=== PATIENT | female | born 1960 | race Caucasian/White ===

== ENCOUNTER 2018-11-05 11:03 | Emergency (ER) | payer OTHER | END 2018-11-05 11:32 | disposition home or self-care (01) | LOC: JERFT 11:03 ==

== ENCOUNTER 2023-07-17 09:27 | Inpatient (IN) | payer OTHER ==
[2023-07-17] MEDS ORDERED: FAMOTIDINE 20 MG/50 ML IVPB 20 MG/50 ML MG IVPB ONE (10:47)
[2023-07-17] MEDS: SODIUM CHLORIDE 1,000 ML IV STA (11:04)
[2023-07-17] MEDS: FAMOTIDINE 20 MG/50 ML IVPB 20 MG/50 ML MG IVPB ONE (11:04)
[2023-07-17 11:12] LABS: BASO % 0.7 % (0-2.0); EOS % 0.6 % (0-4.5); HEMATOCRIT 40.7 % (32.4-45.2); HEMOGLOBIN 13.8 GM/dL (10.7-15.3); LYMPH % 13.1 % (8-40); MCH 27.9 pg (25.7-33.7); MCHC 33.8 g/dl (32.0-36.0); MEAN CELL VOLUME 82.6 fl (80-96); MEAN PLT VOLUME 8.3 fl (7.5-11.1); MONO % 8.3 % (3.8-10.2); NEUT % 77.3 % (42.8-82.8); PLATELET COUNT 314 10^3/uL (134-434); RBC 4.92 M/mm3 (3.60-5.2); RDW 12.6 % (11.6-15.6); WHITE BLOOD COUNT 9.2 K/mm3 (4.0-10.0)
[2023-07-17 11:24] LABS: INR 1.21 (0.83-1.09)
[2023-07-17 11:26] LABS: ACTIVATED PTT 30.1 SECONDS (25.2-36.5)
[2023-07-17 11:37] LABS: CHLORIDE 97 mmol/L (98-107); SODIUM 140 mmol/L (136-145)
[2023-07-17 11:39] LABS: CALCIUM 9.3 mg/dL (8.5-10.1)
[2023-07-17 11:40] LABS: BLOOD UREA NITROGEN 8.8 mg/dL (7-18); CO2 35 mmol/L (21-32); GLUCOSE,RANDOM 112 mg/dL (74-106)
[2023-07-17 11:43] LABS: CREATININE 0.6 mg/dL (0.55-1.3); SGOT/AST 41 U/L (15-37); SGPT/ALT 50 U/L (13-61)
[2023-07-17 11:44] LABS: TOT PROT 6.6 g/dl (6.4-8.2)
[2023-07-17 11:45] LABS: BILIRUBIN,TOTAL 1.3 mg/dL (0.2-1)
[2023-07-17 11:46] LABS: ALK PHOS 128 U/L (45-117)
[2023-07-17 11:47] LABS: ANION GAP 8 mmol/L (4-13); POTASSIUM 2.8 mmol/L (3.5-5.1)
[2023-07-17 12:42] LABS: EPI CELLS >36 /uL (0-25.1); HYALINE CASTS 7 /uL (0-3.1); URINE APPEARANCE CLOUDY; URINE BILIRUBIN 2+ (NEGATIVE); URINE COLOR ORANGE; URINE GLUCOSE (UA) NEGATIVE (NEGATIVE); URINE KETONE 1+ (NEGATIVE); URINE LEUK ESTERASE 1+ (NEGATIVE); URINE NITRITE POSITIVE (NEGATIVE); URINE PROTEIN 1+ (NEGATIVE); URINE WBC 76 /uL (0-25.8)
[2023-07-17] MEDS ORDERED: KCL 10 MEQ IVPB 10 MEQ/100 ML INFUS.BAG IVPB ONE ×2 (12:46→14:21)
[2023-07-17] MEDS: KCL 10 MEQ IVPB 10 MEQ/100 ML INFUS.BAG IVPB SCH ×2 (12:57→19:13)
[2023-07-17 14:39] LABS: URINE BACTERIA 876.8 /uL (0-1359); URINE RBC 32.4 /uL (0-23.9)
[2023-07-17] MEDS ORDERED: ACETAMINOPHEN 1000 MG/100 ML BAG IVPB PRN (15:29)
[2023-07-17] MEDS: DEXTROSE 5%-0.45% SALINE 1,000 ML IV SCH (18:25)
[2023-07-18] MEDS: ONDANSETRON 4 MG/2 ML VIAL IVPUSH PRN (00:47)
[2023-07-18 06:57] LABS: BASO % 1.2 % (0-2.0); EOS % 1.4 % (0-4.5); HEMATOCRIT 34.8 % (32.4-45.2); HEMOGLOBIN 11.9 GM/dL (10.7-15.3); LYMPH % 18.5 % (8-40); MCH 28.2 pg (25.7-33.7); MCHC 34.2 g/dl (32.0-36.0); MEAN CELL VOLUME 82.6 fl (80-96); MEAN PLT VOLUME 8.3 fl (7.5-11.1); MONO % 10.1 % (3.8-10.2); NEUT % 68.8 % (42.8-82.8); PLATELET COUNT 244 10^3/uL (134-434); RBC 4.21 M/mm3 (3.60-5.2); RDW 12.8 % (11.6-15.6); WHITE BLOOD COUNT 7.3 K/mm3 (4.0-10.0)
[2023-07-18 07:06] LABS: CHLORIDE 98 mmol/L (98-107); SODIUM 138 mmol/L (136-145)
[2023-07-18 07:17] LABS: SGPT/ALT 42 U/L (13-61)
[2023-07-18 07:18] LABS: CREATININE 0.5 mg/dL (0.55-1.3); TOT PROT 5.5 g/dl (6.4-8.2)
[2023-07-18 07:19] LABS: ALK PHOS 101 U/L (45-117); BILIRUBIN,TOTAL 1.2 mg/dL (0.2-1)
[2023-07-18 07:20] LABS: BLOOD UREA NITROGEN 7.8 mg/dL (7-18); GLUCOSE,RANDOM 118 mg/dL (74-106)
[2023-07-18 07:22] LABS: ALBUMIN 2.6 g/dl (3.4-5.0); CALCIUM 8.1 mg/dL (8.5-10.1); CO2 34 mmol/L (21-32); SGOT/AST 33 U/L (15-37)
[2023-07-18 07:32] LABS: ANION GAP 7 mmol/L (4-13); POTASSIUM 2.9 mmol/L (3.5-5.1)
[2023-07-18] MEDS: POTASSIUM CHLORIDE ORAL LIQUID 20 MEQ/15 ML PO ONE (12:01)
[2023-07-18] MEDS: KCL 10 MEQ IVPB 10 MEQ/100 ML INFUS.BAG IVPB SCH (12:01)
[2023-07-18 13:30] LABS: BF WBC & OTHER NUCLEATED CELLS 269 /mm3; BODY FLUID MACROPHAGES 30 %; BODY FLUID MESOTHELIAL 6 %
[2023-07-18] MEDS: POTASSIUM CHLORIDE ORAL LIQUID 20 MEQ/15 ML PO SCH (21:14)
[2023-07-19 07:13] LABS: BASO % 0.6 % (0-2.0); EOS % 0.6 % (0-4.5); HEMATOCRIT 36.8 % (32.4-45.2); HEMOGLOBIN 12.3 GM/dL (10.7-15.3); LYMPH % 12.5 % (8-40); MCH 27.7 pg (25.7-33.7); MCHC 33.3 g/dl (32.0-36.0); MEAN CELL VOLUME 83.1 fl (80-96); MEAN PLT VOLUME 9.1 fl (7.5-11.1); NEUT % 76.3 % (42.8-82.8); PLATELET COUNT 230 10^3/uL (134-434); RBC 4.43 M/mm3 (3.60-5.2); RDW 12.9 % (11.6-15.6); WHITE BLOOD COUNT 9.3 K/mm3 (4.0-10.0)
[2023-07-19 07:21] LABS: POTASSIUM 3.8 mmol/L (3.5-5.1)
[2023-07-19 07:35] LABS: ALBUMIN 2.4 g/dl (3.4-5.0); BLOOD UREA NITROGEN 5.2 mg/dL (7-18); CALCIUM 8.2 mg/dL (8.5-10.1)
[2023-07-19 07:38] LABS: CREATININE 0.5 mg/dL (0.55-1.3)
[2023-07-19 07:39] LABS: TOT PROT 5.3 g/dl (6.4-8.2)
[2023-07-19 07:41] LABS: BILIRUBIN,TOTAL 1.1 mg/dL (0.2-1)
[2023-07-19] MEDS: ENOXAPARIN NA (PORCINE) 40 MG/0.4 ML DISP.SYRIN SQ SCH (11:48)
[2023-07-19] MEDS: POTASSIUM CHLORIDE TABS 20 MEQ TABLET.ER (FP) PO ONE (22:37)
[2023-07-20 07:37] LABS: BASO % 0.5 % (0-2.0); EOS % 1.7 % (0-4.5); HEMATOCRIT 37.7 % (32.4-45.2); HEMOGLOBIN 12.6 GM/dL (10.7-15.3); LYMPH % 19.5 % (8-40); MCH 27.8 pg (25.7-33.7); MCHC 33.5 g/dl (32.0-36.0); MEAN CELL VOLUME 83.2 fl (80-96); MEAN PLT VOLUME 9.1 fl (7.5-11.1); MONO % 9.9 % (3.8-10.2); NEUT % 68.4 % (42.8-82.8); PLATELET COUNT 252 10^3/uL (134-434); RBC 4.53 M/mm3 (3.60-5.2); RDW 12.8 % (11.6-15.6); WHITE BLOOD COUNT 8.7 K/mm3 (4.0-10.0)
[2023-07-20 08:02] LABS: BLOOD UREA NITROGEN 3.8 mg/dL (7-18); CALCIUM 8.2 mg/dL (8.5-10.1)
[2023-07-20 08:03] LABS: ALBUMIN 2.4 g/dl (3.4-5.0)
[2023-07-20 08:06] LABS: CREATININE 0.5 mg/dL (0.55-1.3)
[2023-07-20 08:14] LABS: TOT PROT 5.6 g/dl (6.4-8.2)
[2023-07-20 12:08] VITALS: BMI 26.6
[2023-07-20] MEDS ORDERED: ALPRAZolam 1 MG TABLET PO PRN (14:14)
[2023-07-21 13:08] VITALS: RESP 18
[2023-07-22] MEDS ORDERED: ONDANSETRON 4 MG/2 ML VIAL IVPUSH PRN (07:20)
[2023-07-22 10:37] LABS: BASO % 0.7 % (0-2.0); EOS % 1.1 % (0-4.5); HEMATOCRIT 38.1 % (32.4-45.2); HEMOGLOBIN 12.9 GM/dL (10.7-15.3); LYMPH % 13.7 % (8-40); MCH 28.2 pg (25.7-33.7); MCHC 33.8 g/dl (32.0-36.0); MEAN CELL VOLUME 83.5 fl (80-96); MEAN PLT VOLUME 8.9 fl (7.5-11.1); MONO % 8.2 % (3.8-10.2); NEUT % 76.3 % (42.8-82.8); PLATELET COUNT 267 10^3/uL (134-434); RBC 4.56 M/mm3 (3.60-5.2); RDW 13.2 % (11.6-15.6); WHITE BLOOD COUNT 8.8 K/mm3 (4.0-10.0)
[2023-07-22 11:04] LABS: POTASSIUM 3.8 mmol/L (3.5-5.1)
[2023-07-22 11:07] LABS: CALCIUM 8.6 mg/dL (8.5-10.1)
[2023-07-22 11:08] LABS: ALBUMIN 2.4 g/dl (3.4-5.0)
[2023-07-22 11:11] LABS: CREATININE 0.5 mg/dL (0.55-1.3)
[2023-07-22 11:12] LABS: TOT PROT 5.5 g/dl (6.4-8.2)
[2023-07-22 11:13] LABS: BILIRUBIN,TOTAL 0.8 mg/dL (0.2-1)
[2023-07-22] MEDS: PANTOPRAZOLE 40 MG TABLET PO SCH (11:34)
[2023-07-22] MEDS: ENOXAPARIN NA (PORCINE) 40 MG/0.4 ML DISP.SYRIN SQ SCH (11:34)
[2023-07-23 13:42] VITALS: BP 145/79; PULSE 88; TEMP 98.6
[2023-07-23 15:18] LABS: BODY FLUID ALBUMIN 2.6 g/dL (Not Estab.)
== END 2023-07-23 13:45 | disposition home or self-care (01) | DRG 948 ==
LOC: JER 09:27 → JERBED 11:09 → J4W 17:08 → J7W 07-21 18:07
PROVIDERS: ADMIT Internal Medicine; ATTEND Internal Medicine
PROC: 0W9G3ZX Drainage of Peritoneal Cavity, Percutaneous Approach, Diagnostic (ICD-10-PCS; principal; 2023-07-18)
DX: R18.8 Other ascites (principal); C50.919 Malignant neoplasm of unspecified site of unspecified female breast; R63.0 Anorexia
CPT/HCPCS: 0241U-QW; 36415; 71046-TC-FY; 74176-TC; 74177-TC; 76856-TC; 76942-TC; 80053; 81003; 82042; 82150; 82465; 82945; 83615; 83986; 84157; 84478; 85025; 85610; 85730; 86850; 86900; 86901; 87070; 87075; 87086; 87102; 87116; 87205; 87206; 87210; 88108; 88305-TC; 93005; 93010; 99285-25

== ENCOUNTER 2023-08-23 09:34 | Inpatient (IN) | payer OTHER ==
[2023-08-23] MEDS ORDERED: ONDANSETRON 4 MG/2 ML VIAL ONE (10:26)
[2023-08-23 10:34] LABS: BASO % 0.2 % (0-2.0); EOS % 0.6 % (0-4.5); HEMATOCRIT 37.8 % (32.4-45.2); HEMOGLOBIN 12.7 GM/dL (10.7-15.3); LYMPH % 3.9 % (8-40); MCH 27.1 pg (25.7-33.7); MCHC 33.6 g/dl (32.0-36.0); MEAN CELL VOLUME 80.6 fl (80-96); MONO % 6.5 % (3.8-10.2); NEUT % 88.8 % (42.8-82.8); PLATELET COUNT 413 10^3/uL (134-434); RBC 4.69 M/mm3 (3.60-5.2); WHITE BLOOD COUNT 11.9 K/mm3 (4.0-10.0)
[2023-08-23] MEDS: ONDANSETRON 4 MG/2 ML VIAL IVPUSH ONE (10:35)
[2023-08-23 10:53] LABS: POTASSIUM 3.7 mmol/L (3.5-5.1)
[2023-08-23 10:56] LABS: CALCIUM 9.6 mg/dL (8.5-10.1)
[2023-08-23 10:57] LABS: ALBUMIN 2.7 g/dl (3.4-5.0)
[2023-08-23 10:59] LABS: CREATININE 0.6 mg/dL (0.55-1.3)
[2023-08-23 11:01] LABS: TOT PROT 6.6 g/dl (6.4-8.2)
[2023-08-23 11:04] LABS: BILIRUBIN,TOTAL 0.9 mg/dL (0.2-1)
[2023-08-23] MEDS ORDERED: DEXAMETHASONE SOD PHOSPHATE 10 MG/1 ML VIAL ONE (12:34)
[2023-08-23] MEDS ORDERED: ACETAMINOPHEN INJECTION 100 ML IVPB ONE (12:35)
[2023-08-23] MEDS: DEXAMETHASONE SOD PHOSPHATE 10 MG/1 ML VIAL IVPUSH ONE (12:59)
[2023-08-23] MEDS: ACETAMINOPHEN 1000 MG/100 ML BAG IVPB ONE (12:59)
[2023-08-23 13:23] LABS: POTASSIUM 3.4 mmol/L (3.5-5.1)
[2023-08-23 13:24] LABS: CALCIUM 8.7 mg/dL (8.5-10.1)
[2023-08-23 13:25] LABS: BLOOD UREA NITROGEN 6.7 mg/dL (7-18)
[2023-08-23 13:28] LABS: CREATININE 0.5 mg/dL (0.55-1.3)
[2023-08-23] MEDS: REMDESIVIR 200 MG in SODIUM CHLORIDE 250 ML IVPB ONE (15:42)
[2023-08-23 16:35] LABS: URINE APPEARANCE CLEAR; URINE BILIRUBIN NEGATIVE (NEGATIVE); URINE COLOR YELLOW; URINE GLUCOSE (UA) NEGATIVE (NEGATIVE); URINE KETONE NEGATIVE (NEGATIVE); URINE LEUK ESTERASE NEGATIVE (NEGATIVE); URINE NITRITE NEGATIVE (NEGATIVE); URINE PROTEIN TRACE (NEGATIVE)
[2023-08-23] MEDS ORDERED: ONDANSETRON 4 MG/2 ML VIAL IVPUSH PRN (20:19)
[2023-08-23] MEDS ORDERED: ACETAMINOPHEN 1000 MG/100 ML BAG IVPB PRN (20:19)
[2023-08-23] MEDS: DEXTROSE 5%-0.45% SALINE 1,000 ML IV SCH (22:21)
[2023-08-24] MEDS: guaiFENesin/D-METHORPHAN HB 10 ML UNIT-DOSE CUPS PO ONE (01:05)
[2023-08-24 09:02] LABS: BASO % 0.4 % (0-2.0); EOS % 0.1 % (0-4.5); HEMATOCRIT 33.2 % (32.4-45.2); HEMOGLOBIN 11.3 GM/dL (10.7-15.3); LYMPH % 20.6 % (8-40); MCH 27.3 pg (25.7-33.7); MEAN CELL VOLUME 80.4 fl (80-96); MEAN PLT VOLUME 8.3 fl (7.5-11.1); MONO % 16.7 % (3.8-10.2); NEUT % 62.2 % (42.8-82.8); PLATELET COUNT 361 10^3/uL (134-434); RBC 4.13 M/mm3 (3.60-5.2); RDW 14.2 % (11.6-15.6); WHITE BLOOD COUNT 6.9 K/mm3 (4.0-10.0)
[2023-08-24 09:19] LABS: CHLORIDE 97 mmol/L (98-107); SODIUM 140 mmol/L (136-145)
[2023-08-24 09:24] LABS: ALBUMIN 2.3 g/dl (3.4-5.0); BLOOD UREA NITROGEN 9.7 mg/dL (7-18); CALCIUM 8.5 mg/dL (8.5-10.1); CO2 34 mmol/L (21-32); GLUCOSE,RANDOM 102 mg/dL (74-106)
[2023-08-24 09:27] LABS: CREATININE 0.5 mg/dL (0.55-1.3); SGOT/AST 21 U/L (15-37); SGPT/ALT 21 U/L (13-61)
[2023-08-24 09:28] LABS: BILIRUBIN,TOTAL 0.7 mg/dL (0.2-1); TOT PROT 5.6 g/dl (6.4-8.2)
[2023-08-24 09:34] LABS: ALK PHOS 119 U/L (45-117)
[2023-08-24 09:44] LABS: ANION GAP 9 mmol/L (4-13); POTASSIUM 2.9 mmol/L (3.5-5.1)
[2023-08-24] MEDS: ENOXAPARIN NA (PORCINE) 40 MG/0.4 ML DISP.SYRIN SQ SCH (10:26)
[2023-08-24] MEDS: PANTOPRAZOLE 40 MG TABLET PO SCH (10:26)
[2023-08-24] MEDS: KCL 10 MEQ IVPB 10 MEQ/100 ML INFUS.BAG IVPB SCH (11:32)
[2023-08-24] MEDS: POTASSIUM CHLORIDE ORAL LIQUID 20 MEQ/15 ML PO ONE (11:35)
[2023-08-24 15:17] VITALS: BMI 24.7
[2023-08-24 21:22] LABS: POTASSIUM 3.4 mmol/L (3.5-5.1)
[2023-08-24 21:24] LABS: BLOOD UREA NITROGEN 7.8 mg/dL (7-18); CALCIUM 8.5 mg/dL (8.5-10.1)
[2023-08-24 21:28] LABS: CREATININE 0.6 mg/dL (0.55-1.3)
[2023-08-24] MEDS: ALBUTEROL SO4 2.5/IPRATROPIUM 0.5 INH SOL 3 ML VIAL.NEB. NEB ONE (21:48)
[2023-08-25 08:30] LABS: BASO % 0.6 % (0-2.0); EOS % 0.7 % (0-4.5); HEMATOCRIT 33.6 % (32.4-45.2); HEMOGLOBIN 11.1 GM/dL (10.7-15.3); LYMPH % 30.8 % (8-40); MCH 27.1 pg (25.7-33.7); MEAN CELL VOLUME 81.9 fl (80-96); MEAN PLT VOLUME 8.3 fl (7.5-11.1); MONO % 15.9 % (3.8-10.2); PLATELET COUNT 325 10^3/uL (134-434); RBC 4.11 M/mm3 (3.60-5.2); RDW 13.9 % (11.6-15.6); WHITE BLOOD COUNT 5.1 K/mm3 (4.0-10.0)
[2023-08-25 08:53] LABS: POTASSIUM 3.2 mmol/L (3.5-5.1)
[2023-08-25 08:54] LABS: ALBUMIN 2.2 g/dl (3.4-5.0); BLOOD UREA NITROGEN 6.6 mg/dL (7-18)
[2023-08-25 08:57] LABS: CREATININE 0.5 mg/dL (0.55-1.3)
[2023-08-25 08:59] LABS: BILIRUBIN,TOTAL 0.6 mg/dL (0.2-1)
[2023-08-25] MEDS ORDERED: ALBUTEROL SO4 0.083% IH SOL 2.5 MG/3 ML VIAL.NEB. NEB PRN (11:52)
[2023-08-25] MEDS: methylPREDNISolone NA SUCC 40 MG/1 ML VIAL IVPUSH SCH (12:56)
[2023-08-25] MEDS ORDERED: ALBUTEROL SO4 0.083% IH SOL 2.5 MG/3 ML VIAL.NEB. NEB SCH (14:00)
[2023-08-26] MEDS: REMDESIVIR 100 MG in SODIUM CHLORIDE 230 ML IVPB SCH (17:11)
[2023-08-26] MEDS: methylPREDNISolone NA SUCC 40 MG/1 ML VIAL IVPUSH SCH (17:12)
[2023-08-27 09:59] LABS: BASO % 0.2 % (0-2.0); HEMATOCRIT 36.1 % (32.4-45.2); HEMOGLOBIN 12.2 GM/dL (10.7-15.3); LYMPH % 10.8 % (8-40); MCH 27.3 pg (25.7-33.7); MCHC 33.7 g/dl (32.0-36.0); MEAN PLT VOLUME 8.6 fl (7.5-11.1); PLATELET COUNT 468 10^3/uL (134-434); RBC 4.46 M/mm3 (3.60-5.2); RDW 14.2 % (11.6-15.6); WHITE BLOOD COUNT 13.9 K/mm3 (4.0-10.0)
[2023-08-27 10:24] LABS: POTASSIUM 3.7 mmol/L (3.5-5.1)
[2023-08-27 10:31] LABS: BLOOD UREA NITROGEN 7.2 mg/dL (7-18); CREATININE 0.6 mg/dL (0.55-1.3)
[2023-08-27 10:33] LABS: BILIRUBIN,TOTAL 0.6 mg/dL (0.2-1); TOT PROT 6.3 g/dl (6.4-8.2)
[2023-08-27 10:34] LABS: CALCIUM 8.8 mg/dL (8.5-10.1)
[2023-08-27] MEDS: guaiFENesin/CODEINE 10 ML UNIT-DOSE CUPS PO PRN (10:41)
[2023-08-27 10:58] LABS: ALBUMIN 2.6 g/dl (3.4-5.0)
[2023-08-27] MEDS: REMDESIVIR 100 MG in SODIUM CHLORIDE 250 ML IVPB SCH (15:32)
[2023-08-28 08:40] LABS: BASO % 0.6 % (0-2.0); HEMATOCRIT 34.5 % (32.4-45.2); HEMOGLOBIN 11.5 GM/dL (10.7-15.3); LYMPH % 15.1 % (8-40); MCHC 33.2 g/dl (32.0-36.0); MEAN CELL VOLUME 81.1 fl (80-96); MEAN PLT VOLUME 8.1 fl (7.5-11.1); MONO % 10.4 % (3.8-10.2); NEUT % 73.9 % (42.8-82.8); PLATELET COUNT 375 10^3/uL (134-434); RBC 4.26 M/mm3 (3.60-5.2); RDW 13.9 % (11.6-15.6); WHITE BLOOD COUNT 10.8 K/mm3 (4.0-10.0)
[2023-08-28 08:59] LABS: POTASSIUM 3.2 mmol/L (3.5-5.1)
[2023-08-28 09:05] LABS: CALCIUM 8.8 mg/dL (8.5-10.1)
[2023-08-28 09:07] LABS: ALBUMIN 2.4 g/dl (3.4-5.0); BLOOD UREA NITROGEN 8.3 mg/dL (7-18)
[2023-08-28 09:08] LABS: CREATININE 0.4 mg/dL (0.55-1.3)
[2023-08-28 09:11] LABS: BILIRUBIN,TOTAL 0.4 mg/dL (0.2-1); TOT PROT 5.7 g/dl (6.4-8.2)
[2023-08-29 14:08] VITALS: RESP 18
[2023-08-29] MEDS: PANTOPRAZOLE 40 MG TABLET PO ONE (21:08)
[2023-08-29] MEDS: POLYETHYLENE GLYCOL (HEALTHYLAX) 3350 17 GM PACKET PO PRN (22:31)
[2023-08-30 14:04] VITALS: BP 147/80; PULSE 88; TEMP 99
== END 2023-08-30 14:06 | disposition home or self-care (01) | DRG 597 ==
LOC: JER 09:34 → JERBED 10:26 → J8W 17:01 → OBSVTOIN 20:17
PROVIDERS: ADMIT Internal Medicine; ATTEND Internal Medicine
PROC: XW033E5 Introduction of Remdesivir Anti-infective into Peripheral Vein, Percutaneous Approach, New Technology Group 5 (ICD-10-PCS; principal; 2023-08-23)
DX: C50.919 Malignant neoplasm of unspecified site of unspecified female breast (principal); U07.1 COVID-19; C79.89 Secondary malignant neoplasm of other specified sites; R18.0 Malignant ascites; R09.02 Hypoxemia
CPT/HCPCS: 0241U-QW; 36415; 71046-TC-FY; 71250-TC; 74177-TC; 80048; 80053; 81003; 83690; 84484; 85025; 87086; 87186; 93005; 93010; 93970-TC; 94640; 99285-25; G0378; J0131; J0248; J1100; Q9967

== ENCOUNTER 2023-09-19 06:00 | Day surgery (SDC) | payer OTHER ==
[2023-09-13 15:36] VITALS: BMI 24.7
[2023-09-19 09:52] LABS: BASO % 1.2 % (0-2.0); EOS % 1.5 % (0-4.5); HEMATOCRIT 37.7 % (32.4-45.2); HEMOGLOBIN 12.5 GM/dL (10.7-15.3); LYMPH % 21.8 % (8-40); MCH 27.5 pg (25.7-33.7); MCHC 33.2 g/dl (32.0-36.0); MEAN CELL VOLUME 82.8 fl (80-96); MEAN PLT VOLUME 7.8 fl (7.5-11.1); MONO % 10.3 % (3.8-10.2); NEUT % 65.2 % (42.8-82.8); PLATELET COUNT 369 10^3/uL (134-434); RBC 4.55 M/mm3 (3.60-5.2); RDW 14.7 % (11.6-15.6); WHITE BLOOD COUNT 6.9 K/mm3 (4.0-10.0)
[2023-09-19 09:56] LABS: INR 1.14 (0.83-1.09); PROTHROMBIN TIME (PATIENT) 12.8 SEC (9.7-13.0)
[2023-09-19] MEDS: SODIUM CHLORIDE 500 ML IV SCH (11:45)
[2023-09-19] MEDS ORDERED: FENTANYL CITRATE/PF 50 MCG/ML VIAL ONE ×2 (11:50→12:04)
[2023-09-19] MEDS ORDERED: MIDAZOLAM HCL 2 MG/2 ML SINGLE DOSE VIAL ONE (11:50)
[2023-09-19] MEDS ORDERED: ONDANSETRON 4 MG/2 ML VIAL ONE (11:51)
[2023-09-19] MEDS: ONDANSETRON 4 MG/2 ML VIAL IVPUSH ONE (11:55)
[2023-09-19] MEDS: FENTANYL CITRATE/PF 50 MCG/ML VIAL IVPUSH ONE ×2 (11:56→12:05)
[2023-09-19] MEDS: MIDAZOLAM HCL 2 MG/2 ML SINGLE DOSE VIAL IVPUSH ONE ×2 (11:56→12:05)
[2023-09-19 13:37] VITALS: BP 118/72; PULSE 82; RESP 18; TEMP 97.7
== END 2023-09-19 14:17 | disposition home or self-care (01) ==
LOC: JRADIR 06:00
PROVIDERS: ATTEND Internal Medicine Hematology & Oncology
PROC: 0JH63WZ Insertion of Totally Implantable Vascular Access Device into Chest Subcutaneous Tissue and Fascia, Percutaneous Approach (ICD-10-PCS; principal; 2023-09-19)
PROC: 02HV33Z Insertion of Infusion Device into Superior Vena Cava, Percutaneous Approach (ICD-10-PCS; 2023-09-19)
PROC: B518ZZA Fluoroscopy of Superior Vena Cava, Guidance (ICD-10-PCS; 2023-09-19)
DX: C50.919 Malignant neoplasm of unspecified site of unspecified female breast (principal)
CPT/HCPCS: 36561; C1788; 36415; 85025; 85610

== ENCOUNTER 2023-09-23 09:54 | Day surgery (SDC) | payer OTHER ==
[2023-09-23] MEDS: PORTA CATH FLUSH 10 ML IVPUSH PRN (11:00)
[2023-09-23] MEDS: DEXAMETHASONE SODIUM PHOSPHATE 10 MG, DIPHENHYDRAMINE 25 MG in SODIUM CHLORIDE 100 ML IVPB ONE (11:12)
[2023-09-23] MEDS: ONDANSETRON 4 MG/2 ML VIAL IVPB ONE (11:13)
[2023-09-23] MEDS: FAMOTIDINE 20 MG/50 ML IVPB 20 MG/50 ML MG IVPB ONE (11:48)
[2023-09-23] MEDS: PACLITAXEL 150 MG in SODIUM CHLORIDE 250 ML IVPB ONE (12:53)
[2023-09-23 17:00] VITALS: BP 133/85; PULSE 116; RESP 18; TEMP 98.2
== END 2023-09-23 15:00 | disposition home or self-care (01) ==
LOC: JONCCHEMO 09:54 → J7W 09:56 → JONCCHEMO 15:00
PROVIDERS: ATTEND Internal Medicine Hematology & Oncology
DX: Z51.11 Encounter for antineoplastic chemotherapy (principal); C50.412 Malignant neoplasm of upper-outer quadrant of left female breast; Z17.0 Estrogen receptor positive status [ER+]
CPT/HCPCS: 96367; 96413; 96415

== ENCOUNTER 2023-09-30 09:35 | Day surgery (SDC) | payer OTHER ==
[2023-09-30 10:12] LABS: BASO % 0.6 % (0-2.0); EOS % 0.8 % (0-4.5); HEMATOCRIT 40.4 % (32.4-45.2); HEMOGLOBIN 13.3 GM/dL (10.7-15.3); LYMPH % 20.8 % (8-40); MCH 26.9 pg (25.7-33.7); MCHC 32.8 g/dl (32.0-36.0); MEAN PLT VOLUME 8.2 fl (7.5-11.1); MONO % 3.8 % (3.8-10.2); PLATELET COUNT 342 10^3/uL (134-434); RBC 4.93 M/mm3 (3.60-5.2); RDW 14.2 % (11.6-15.6); WHITE BLOOD COUNT 6.9 K/mm3 (4.0-10.0)
[2023-09-30 10:33] LABS: POTASSIUM 3.1 mmol/L (3.5-5.1)
[2023-09-30 10:35] LABS: MAGNESIUM 2.3 mg/dL (1.8-2.4)
[2023-09-30 10:36] LABS: ALBUMIN 3.3 g/dl (3.4-5.0); BLOOD UREA NITROGEN 10.3 mg/dL (7-18); CALCIUM 9.9 mg/dL (8.5-10.1)
[2023-09-30 10:39] LABS: CREATININE 0.7 mg/dL (0.55-1.3)
[2023-09-30 10:41] LABS: BILIRUBIN,TOTAL 1.1 mg/dL (0.2-1); TOT PROT 6.9 g/dl (6.4-8.2)
[2023-09-30] MEDS: KCL 10 MEQ IVPB 10 MEQ/100 ML INFUS.BAG IVPB SCH (11:16)
[2023-09-30] MEDS: FAMOTIDINE 20 MG/50 ML IVPB 20 MG/50 ML MG IVPB ONE (11:17)
[2023-09-30] MEDS: DEXAMETHASONE SODIUM PHOSPHATE 10 MG, ONDANSETRON INJECTION 8 MG, DIPHENHYDRAMINE 25 MG... IVPB ONE (12:08)
[2023-09-30] MEDS: POTASSIUM CHLORIDE TABS 20 MEQ TABLET.ER (FP) PO SCH (12:22)
[2023-09-30] MEDS: PACLITAXEL 150 MG in SODIUM CHLORIDE 250 ML IVPB ONE (12:30)
[2023-09-30 17:43] VITALS: BP 141/93; PULSE 110; RESP 20; TEMP 98.2
[2023-09-30] MEDS ORDERED: PORTA CATH FLUSH 10 ML IVPUSH PRN (17:43)
[2023-10-01] MEDS ORDERED: POTASSIUM CHLORIDE TABS 20 MEQ TABLET.ER (FP) PO SCH (10:00)
== END 2023-09-30 14:35 | disposition home or self-care (01) ==
LOC: JONCCHEMO 09:35 → J7W 09:36 → JONCCHEMO 14:35
PROVIDERS: ATTEND Internal Medicine Hematology & Oncology
DX: Z51.11 Encounter for antineoplastic chemotherapy (principal); C50.412 Malignant neoplasm of upper-outer quadrant of left female breast; Z17.0 Estrogen receptor positive status [ER+]
CPT/HCPCS: 36415; 80053; 82728; 83540; 83735; 85025; 96367; 96413

== ENCOUNTER 2023-10-07 09:48 | Day surgery (SDC) | payer OTHER ==
[2023-10-07 10:10] LABS: BASO % 1.3 % (0-2.0); EOS % 1.1 % (0-4.5); HEMOGLOBIN 12.7 GM/dL (10.7-15.3); LYMPH % 42.2 % (8-40); MCH 27.6 pg (25.7-33.7); MCHC 34.2 g/dl (32.0-36.0); MEAN CELL VOLUME 80.5 fl (80-96); MONO % 7.3 % (3.8-10.2); NEUT % 48.1 % (42.8-82.8); PLATELET COUNT 332 10^3/uL (134-434); RDW 14.4 % (11.6-15.6)
[2023-10-07 10:29] LABS: CHLORIDE 99 mmol/L (98-107); SODIUM 138 mmol/L (136-145)
[2023-10-07 10:32] LABS: BLOOD UREA NITROGEN 8.3 mg/dL (7-18); CALCIUM 9.4 mg/dL (8.5-10.1); CO2 32 mmol/L (21-32); GLUCOSE,RANDOM 114 mg/dL (74-106); MAGNESIUM 2.3 mg/dL (1.8-2.4)
[2023-10-07 10:33] LABS: ALBUMIN 3.2 g/dl (3.4-5.0)
[2023-10-07 10:35] LABS: SGPT/ALT 46 U/L (13-61)
[2023-10-07 10:36] LABS: SGOT/AST 36 U/L (15-37)
[2023-10-07 10:37] LABS: BILIRUBIN,TOTAL 1.6 mg/dL (0.2-1); CREATININE 0.7 mg/dL (0.55-1.3); TOT PROT 6.8 g/dl (6.4-8.2)
[2023-10-07 10:39] LABS: ALK PHOS 127 U/L (45-117)
[2023-10-07 11:00] LABS: ANION GAP 7 mmol/L (4-13); POTASSIUM 2.9 mmol/L (3.5-5.1)
[2023-10-07] MEDS: DEXAMETHASONE SODIUM PHOSPHATE 10 MG, ONDANSETRON INJECTION 8 MG, DIPHENHYDRAMINE 25 MG... IVPB ONE (11:08)
[2023-10-07] MEDS: FAMOTIDINE/PF 20 MG in SODIUM CHLORIDE 50 ML IVPB ONE (11:39)
[2023-10-07] MEDS: PACLITAXEL 144 MG in SODIUM CHLORIDE 250 ML IVPB ONE (12:19)
[2023-10-07] MEDS: KCL 10 MEQ IVPB 10 MEQ/100 ML INFUS.BAG IVPB SCH (13:24)
[2023-10-07 14:59] VITALS: RESP 20; TEMP 98.2
[2023-10-07] MEDS: PORTA CATH FLUSH 10 ML IVPUSH PRN (15:35)
[2023-10-08 08:05] VITALS: BP 118/73; PULSE 75
== END 2023-10-07 15:45 | disposition home or self-care (01) ==
LOC: JONCCHEMO 09:48 → J7W 09:54 → JONCCHEMO 15:45
PROVIDERS: ATTEND Internal Medicine Hematology & Oncology
DX: Z51.11 Encounter for antineoplastic chemotherapy (principal); C50.412 Malignant neoplasm of upper-outer quadrant of left female breast; Z17.0 Estrogen receptor positive status [ER+]
CPT/HCPCS: 36415; 80053; 83735; 85025; 96366; 96367; 96413

== ENCOUNTER 2023-10-11 09:57 | Inpatient (IN) | payer OTHER ==
[2023-10-11] MEDS ORDERED: ACETAMINOPHEN INJECTION 100 ML IVPB ONE ×2 (11:05→12:37)
[2023-10-11] MEDS ORDERED: ONDANSETRON 4 MG/2 ML VIAL ONE ×2 (11:05→12:38)
[2023-10-11 11:11] LABS: HEMATOCRIT 35.3 % (32.4-45.2); HEMOGLOBIN 11.9 GM/dL (10.7-15.3); MCH 27.3 pg (25.7-33.7); MCHC 33.6 g/dl (32.0-36.0); MEAN CELL VOLUME 81.2 fl (80-96); MEAN PLT VOLUME 8.3 fl (7.5-11.1); PLATELET COUNT 313 10^3/uL (134-434); RBC 4.35 M/mm3 (3.60-5.2); RDW 14.2 % (11.6-15.6); WHITE BLOOD COUNT 2.9 K/mm3 (4.0-10.0)
[2023-10-11 11:19] LABS: INR 1.11 (0.83-1.09); PROTHROMBIN TIME (PATIENT) 12.5 SEC (9.7-13.0)
[2023-10-11] MEDS: SODIUM CHLORIDE 0.9% 500 ML INFUS.BAG IV ONE ×2 (11:19→12:24)
[2023-10-11] MEDS: ACETAMINOPHEN 1000 MG/100 ML BAG IVPB ONE (11:20)
[2023-10-11] MEDS: ONDANSETRON 4 MG/2 ML VIAL IVPUSH ONE ×2 (11:20→12:46)
[2023-10-11 11:22] LABS: ACTIVATED PTT 30.3 SECONDS (25.2-36.5)
[2023-10-11 11:32] LABS: POTASSIUM 3.7 mmol/L (3.5-5.1)
[2023-10-11 11:34] LABS: CALCIUM 9.5 mg/dL (8.5-10.1); MAGNESIUM 2.1 mg/dL (1.8-2.4)
[2023-10-11 11:35] LABS: ALBUMIN 3.1 g/dl (3.4-5.0)
[2023-10-11 11:37] LABS: CREATININE 0.6 mg/dL (0.55-1.3)
[2023-10-11 11:39] LABS: BILIRUBIN,TOTAL 1.7 mg/dL (0.2-1); TOT PROT 6.7 g/dl (6.4-8.2)
[2023-10-11] MEDS ORDERED: FAMOTIDINE 20 MG/50 ML IVPB 20 MG/50 ML MG IVPB ONE (12:37)
[2023-10-11 12:40] LABS: EPI CELLS 21 /uL (0-25.1); HYALINE CASTS 121 /uL (0-3.1); URINE APPEARANCE TURBID; URINE BACTERIA >9,000 /uL (0-1359); URINE BILIRUBIN 1+ (NEGATIVE); URINE COLOR DK YELLOW; URINE GLUCOSE (UA) NEGATIVE (NEGATIVE); URINE KETONE TRACE (NEGATIVE); URINE LEUK ESTERASE 2+ (NEGATIVE); URINE NITRITE POSITIVE (NEGATIVE); URINE PROTEIN 3+ (NEGATIVE); URINE WBC 29721 /uL (0-25.8)
[2023-10-11] MEDS: FAMOTIDINE 20 MG/50 ML IVPB 20 MG/50 ML MG IVPB ONE (12:46)
[2023-10-11 13:09] LABS: URINE RBC 547 /uL (0-23.9)
[2023-10-11 13:17] LABS: CHLORIDE 102 mmol/L (98-107); SODIUM 138 mmol/L (136-145)
[2023-10-11 13:18] LABS: CALCIUM 8.5 mg/dL (8.5-10.1); CO2 31 mmol/L (21-32); GLUCOSE,RANDOM 124 mg/dL (74-106); MAGNESIUM 1.9 mg/dL (1.8-2.4)
[2023-10-11 13:19] LABS: BLOOD UREA NITROGEN 7.8 mg/dL (7-18)
[2023-10-11 13:22] LABS: CREATININE 0.5 mg/dL (0.55-1.3)
[2023-10-11 13:26] LABS: ANION GAP 6 mmol/L (4-13); POTASSIUM 2.9 mmol/L (3.5-5.1)
[2023-10-11] MEDS ORDERED: KCL 10 MEQ IVPB 10 MEQ/100 ML INFUS.BAG IVPB ONE (13:48)
[2023-10-11] MEDS ORDERED: POTASSIUM CHLORIDE TABS 20 MEQ TABLET.ER (FP) PO ONE (13:48)
[2023-10-11] MEDS ORDERED: CEFTRIAXONE 1 GM/50 ML BAG ONE (13:48)
[2023-10-11] MEDS ORDERED: POTASSIUM CHLORIDE ORAL LIQUID 20 MEQ/15 ML ONE (13:50)
[2023-10-11] MEDS: CEFTRIAXONE 1 GM in DEXTROSE 5%-WATER - 100 ML IVPB ONE (14:06)
[2023-10-11] MEDS: POTASSIUM CHLORIDE ORAL LIQUID 20 MEQ/15 ML PO ONE (14:06)
[2023-10-11] MEDS: KCL 10 MEQ IVPB 10 MEQ/100 ML INFUS.BAG IVPB SCH ×2 (14:24→16:07)
[2023-10-11 15:06] LABS: PLATELET ESTIMATE ADEQUATE
[2023-10-11] MEDS: PANTOPRAZOLE 40 MG TABLET PO SCH (16:07)
[2023-10-11] MEDS: DEXTROSE 5%-0.45% SALINE 1,000 ML IV SCH (16:07)
[2023-10-11 16:28] VITALS: BMI 23.7
[2023-10-11] MEDS: ACETAMINOPHEN 1000 MG/100 ML BAG IVPB PRN (18:15)
[2023-10-11] MEDS: ONDANSETRON 4 MG/2 ML VIAL IVPUSH PRN (23:22)
[2023-10-12] MEDS: PIPERACILLIN/TAZOB 3.375 GM 3.375 GM in DEXTROSE 5%-WATER - 50 ML IVPB SCH (02:33)
[2023-10-12] MEDS: ENOXAPARIN NA (PORCINE) 40 MG/0.4 ML DISP.SYRIN SQ SCH (09:26)
[2023-10-12 09:56] LABS: EOS % 1.3 % (0-4.5); HEMATOCRIT 30.9 % (32.4-45.2); HEMOGLOBIN 10.6 GM/dL (10.7-15.3); LYMPH % 47.3 % (8-40); MCH 27.8 pg (25.7-33.7); MCHC 34.2 g/dl (32.0-36.0); MEAN CELL VOLUME 81.2 fl (80-96); MEAN PLT VOLUME 8.3 fl (7.5-11.1); MONO % 5.2 % (3.8-10.2); NEUT % 45.2 % (42.8-82.8); PLATELET COUNT 314 10^3/uL (134-434); RDW 14.5 % (11.6-15.6); WHITE BLOOD COUNT 3.1 K/mm3 (4.0-10.0)
[2023-10-12] MEDS ORDERED: CEFTRIAXONE 1 GM in DEXTROSE 5%-WATER - 50 ML IVPB SCH (10:00)
[2023-10-12 10:01] LABS: POTASSIUM 3.4 mmol/L (3.5-5.1)
[2023-10-12 10:12] LABS: CALCIUM 8.7 mg/dL (8.5-10.1)
[2023-10-12 10:13] LABS: ALBUMIN 2.7 g/dl (3.4-5.0); BLOOD UREA NITROGEN 6.1 mg/dL (7-18)
[2023-10-12 10:15] LABS: BILIRUBIN,TOTAL 1.2 mg/dL (0.2-1)
[2023-10-12 10:16] LABS: CREATININE 0.5 mg/dL (0.55-1.3)
[2023-10-12 10:17] LABS: TOT PROT 5.9 g/dl (6.4-8.2)
[2023-10-12] MEDS: POTASSIUM CHLORIDE ORAL LIQUID 20 MEQ/15 ML PO ONE (14:54)
[2023-10-13 09:33] LABS: BASO % 1.3 % (0-2.0); EOS % 2.4 % (0-4.5); HEMATOCRIT 27.5 % (32.4-45.2); HEMOGLOBIN 9.6 GM/dL (10.7-15.3); LYMPH % 37.6 % (8-40); MCH 28.2 pg (25.7-33.7); MEAN CELL VOLUME 80.5 fl (80-96); MONO % 6.9 % (3.8-10.2); NEUT % 51.8 % (42.8-82.8); PLATELET COUNT 261 10^3/uL (134-434); RBC 3.42 M/mm3 (3.60-5.2); RDW 14.7 % (11.6-15.6); WHITE BLOOD COUNT 2.9 K/mm3 (4.0-10.0)
[2023-10-13 09:50] LABS: CHLORIDE 104 mmol/L (98-107); SODIUM 139 mmol/L (136-145)
[2023-10-13 09:54] LABS: CALCIUM 8.2 mg/dL (8.5-10.1); CO2 28 mmol/L (21-32)
[2023-10-13 09:55] LABS: ALBUMIN 2.3 g/dl (3.4-5.0); BLOOD UREA NITROGEN 3.3 mg/dL (7-18); GLUCOSE,RANDOM 102 mg/dL (74-106)
[2023-10-13 09:58] LABS: CREATININE 0.4 mg/dL (0.55-1.3); SGOT/AST 13 U/L (15-37); SGPT/ALT 20 U/L (13-61)
[2023-10-13 09:59] LABS: BILIRUBIN,TOTAL 0.6 mg/dL (0.2-1); TOT PROT 5.1 g/dl (6.4-8.2)
[2023-10-13 10:00] LABS: ALK PHOS 88 U/L (45-117); ANION GAP 7 mmol/L (4-13); POTASSIUM 2.9 mmol/L (3.5-5.1)
[2023-10-13] MEDS: CEFTRIAXONE 1 GM in DEXTROSE 5%-WATER - 50 ML IVPB SCH (10:10)
[2023-10-13] MEDS: KCL 10 MEQ IVPB 10 MEQ/100 ML INFUS.BAG IVPB SCH (13:52)
[2023-10-13] MEDS: POTASSIUM CHLORIDE ORAL LIQUID 20 MEQ/15 ML PO ONE (15:45)
[2023-10-13 19:04] VITALS: RESP 18
[2023-10-14 07:50] LABS: BASO % 1.1 % (0-2.0); EOS % 1.7 % (0-4.5); HEMATOCRIT 31.4 % (32.4-45.2); HEMOGLOBIN 10.9 GM/dL (10.7-15.3); LYMPH % 43.7 % (8-40); MCHC 34.7 g/dl (32.0-36.0); MEAN CELL VOLUME 80.6 fl (80-96); MEAN PLT VOLUME 7.9 fl (7.5-11.1); MONO % 8.3 % (3.8-10.2); NEUT % 45.2 % (42.8-82.8); PLATELET COUNT 356 10^3/uL (134-434); RBC 3.89 M/mm3 (3.60-5.2); RDW 14.7 % (11.6-15.6); WHITE BLOOD COUNT 4.7 K/mm3 (4.0-10.0)
[2023-10-14 08:05] LABS: POTASSIUM 3.4 mmol/L (3.5-5.1)
[2023-10-14 08:10] LABS: CALCIUM 8.8 mg/dL (8.5-10.1)
[2023-10-14 08:11] LABS: ALBUMIN 2.7 g/dl (3.4-5.0); BLOOD UREA NITROGEN 3.2 mg/dL (7-18); MAGNESIUM 1.8 mg/dL (1.8-2.4)
[2023-10-14 08:13] LABS: CREATININE 0.4 mg/dL (0.55-1.3); PHOSPHOROUS 3.5 mg/dL (2.5-4.9)
[2023-10-14 08:15] LABS: BILIRUBIN,TOTAL 0.6 mg/dL (0.2-1); TOT PROT 5.8 g/dl (6.4-8.2)
[2023-10-14] MEDS: POTASSIUM CHLORIDE ORAL LIQUID 20 MEQ/15 ML PO ONE (13:35)
[2023-10-14] MEDS: D5-1/2NS+20 MEQ KCL - 20 MEQ/1,000 ML INFUS.BAG IV SCH (16:50)
[2023-10-15 08:37] LABS: EOS % 1.2 % (0-4.5); HEMATOCRIT 28.5 % (32.4-45.2); HEMOGLOBIN 9.6 GM/dL (10.7-15.3); LYMPH % 28.1 % (8-40); MCH 27.5 pg (25.7-33.7); MCHC 33.6 g/dl (32.0-36.0); MEAN CELL VOLUME 81.9 fl (80-96); MEAN PLT VOLUME 7.9 fl (7.5-11.1); MONO % 15.6 % (3.8-10.2); NEUT % 54.1 % (42.8-82.8); PLATELET COUNT 295 10^3/uL (134-434); RBC 3.48 M/mm3 (3.60-5.2); RDW 14.2 % (11.6-15.6); WHITE BLOOD COUNT 3.5 K/mm3 (4.0-10.0)
[2023-10-15 08:40] LABS: CHLORIDE 107 mmol/L (98-107); POTASSIUM 3.1 mmol/L (3.5-5.1); SODIUM 142 mmol/L (136-145)
[2023-10-15 08:42] LABS: CALCIUM 8.2 mg/dL (8.5-10.1)
[2023-10-15 08:43] LABS: ALBUMIN 2.3 g/dl (3.4-5.0); ANION GAP 7 mmol/L (4-13); CO2 28 mmol/L (21-32); GLUCOSE,RANDOM 110 mg/dL (74-106); MAGNESIUM 1.7 mg/dL (1.8-2.4)
[2023-10-15 08:45] LABS: CREATININE 0.4 mg/dL (0.55-1.3)
[2023-10-15 08:46] LABS: SGOT/AST 14 U/L (15-37); SGPT/ALT 19 U/L (13-61)
[2023-10-15 08:47] LABS: BILIRUBIN,TOTAL 0.7 mg/dL (0.2-1); TOT PROT 4.8 g/dl (6.4-8.2)
[2023-10-15 08:48] LABS: ALK PHOS 94 U/L (45-117)
[2023-10-15 08:49] LABS: BLOOD UREA NITROGEN 2.8 mg/dL (7-18)
[2023-10-15] MEDS ORDERED: MAG HYDROX/AL HYDROX/SIMETH -MYLANTA- ORAL SUSPENSION PO PRN (15:09)
[2023-10-15] MEDS: MAGNESIUM SULF 50% (8.12 MEQ/2 ML-1 GM VIAL) IVPB ONE (15:53)
[2023-10-15] MEDS: METOCLOPRAMIDE HCL 10 MG TABLET (FP) PO SCH (16:01)
[2023-10-15] MEDS: MAG HYDROX/AL HYDROX/SIMETH 30 ML UNIT-DOSE CUP PO PRN (16:27)
[2023-10-15] MEDS: KCL 10 MEQ IVPB 10 MEQ/100 ML INFUS.BAG IVPB SCH (18:27)
[2023-10-15] MEDS: POTASSIUM CHLORIDE ORAL LIQUID 20 MEQ/15 ML PO ONE (22:48)
[2023-10-16 08:04] LABS: BASO % 1.3 % (0-2.0); EOS % 1.1 % (0-4.5); HEMATOCRIT 29.5 % (32.4-45.2); HEMOGLOBIN 10.1 GM/dL (10.7-15.3); LYMPH % 25.3 % (8-40); MCH 27.8 pg (25.7-33.7); MCHC 34.3 g/dl (32.0-36.0); MEAN CELL VOLUME 81.1 fl (80-96); MEAN PLT VOLUME 7.9 fl (7.5-11.1); MONO % 17.6 % (3.8-10.2); NEUT % 54.7 % (42.8-82.8); PLATELET COUNT 335 10^3/uL (134-434); RBC 3.64 M/mm3 (3.60-5.2); RDW 14.8 % (11.6-15.6); WHITE BLOOD COUNT 4.3 K/mm3 (4.0-10.0)
[2023-10-16 08:13] LABS: POTASSIUM 3.4 mmol/L (3.5-5.1)
[2023-10-16 08:25] LABS: CALCIUM 8.8 mg/dL (8.5-10.1)
[2023-10-16 08:26] LABS: ALBUMIN 2.4 g/dl (3.4-5.0); BLOOD UREA NITROGEN 3.4 mg/dL (7-18); MAGNESIUM 2.1 mg/dL (1.8-2.4)
[2023-10-16 09:57] LABS: BILIRUBIN,TOTAL 0.5 mg/dL (0.2-1); CREATININE 0.5 mg/dL (0.55-1.3); TOT PROT 5.4 g/dl (6.4-8.2)
[2023-10-16] MEDS: KCL 10 MEQ IVPB 10 MEQ/100 ML INFUS.BAG IVPB SCH (14:55)
[2023-10-16] MEDS: guaiFENesin/D-METHORPHAN HB 10 ML UNIT-DOSE CUPS PO PRN (18:49)
[2023-10-17 10:24] LABS: POTASSIUM 3.8 mmol/L (3.5-5.1)
[2023-10-17 10:30] LABS: ALBUMIN 2.4 g/dl (3.4-5.0); BLOOD UREA NITROGEN 3.2 mg/dL (7-18); CALCIUM 8.7 mg/dL (8.5-10.1)
[2023-10-17 10:33] LABS: CREATININE 0.4 mg/dL (0.55-1.3)
[2023-10-17 10:34] LABS: TOT PROT 5.1 g/dl (6.4-8.2)
[2023-10-17 10:35] LABS: BILIRUBIN,TOTAL 0.6 mg/dL (0.2-1)
[2023-10-17 16:45] VITALS: BP 130/70; PULSE 94; TEMP 98.1
== END 2023-10-17 17:54 | disposition home or self-care (01) | DRG 641 ==
LOC: JER 09:57 → JERBED 13:58 → J5S 15:28 → OBSVTOIN 15:43
PROVIDERS: ADMIT Internal Medicine; ATTEND Internal Medicine
PROC: 0W9G3ZZ Drainage of Peritoneal Cavity, Percutaneous Approach (ICD-10-PCS; principal; 2023-10-16)
DX: E87.6 Hypokalemia (principal); R18.8 Other ascites; N39.0 Urinary tract infection, site not specified; C50.912 Malignant neoplasm of unspecified site of left female breast; B96.20 Unspecified Escherichia coli [E. coli] as the cause of diseases classified elsewhere; R11.2 Nausea with vomiting, unspecified
CPT/HCPCS: 36415; 71045-TC-FY; 76942-TC; 80048; 80053; 81003; 83036; 83735; 84100; 85025; 85610; 85730; 87086; 87186; 93005; 93010; 99285-25; G0378; J0131

== ENCOUNTER 2023-10-22 09:55 | Day surgery (SDC) | payer OTHER ==
[2023-10-22 10:26] LABS: BASO % 1.5 % (0-2.0); EOS % 1.1 % (0-4.5); HEMATOCRIT 34.5 % (32.4-45.2); HEMOGLOBIN 11.6 GM/dL (10.7-15.3); LYMPH % 19.8 % (8-40); MCH 27.5 pg (25.7-33.7); MCHC 33.8 g/dl (32.0-36.0); MEAN CELL VOLUME 81.3 fl (80-96); MEAN PLT VOLUME 7.6 fl (7.5-11.1); NEUT % 64.6 % (42.8-82.8); PLATELET COUNT 307 10^3/uL (134-434); RBC 4.24 M/mm3 (3.60-5.2); RDW 15.5 % (11.6-15.6); WHITE BLOOD COUNT 6.8 K/mm3 (4.0-10.0)
[2023-10-22 10:53] LABS: POTASSIUM 3.4 mmol/L (3.5-5.1)
[2023-10-22 10:55] LABS: CALCIUM 8.5 mg/dL (8.5-10.1)
[2023-10-22 10:56] LABS: ALBUMIN 2.5 g/dl (3.4-5.0); BLOOD UREA NITROGEN 7.6 mg/dL (7-18)
[2023-10-22 10:59] LABS: CREATININE 0.6 mg/dL (0.55-1.3)
[2023-10-22 11:00] LABS: BILIRUBIN,TOTAL 0.5 mg/dL (0.2-1); TOT PROT 5.5 g/dl (6.4-8.2)
[2023-10-22] MEDS: DEXAMETHASONE SODIUM PHOSPHATE 4 MG, ONDANSETRON INJECTION 8 MG, DIPHENHYDRAMINE 25 MG ... IVPB ONE (11:25)
[2023-10-22] MEDS: FAMOTIDINE 20 MG/50 ML IVPB 20 MG/50 ML MG IVPB ONE (12:00)
[2023-10-22] MEDS: POTASSIUM CHLORIDE TABS 20 MEQ TABLET.ER (FP) PO ONE (12:28)
[2023-10-22] MEDS: PACLITAXEL 144 MG in SODIUM CHLORIDE 250 ML IVPB ONE (12:29)
[2023-10-22] MEDS: PORTA CATH FLUSH 10 ML IVPUSH PRN (13:35)
[2023-10-22 13:52] LABS: EPI CELLS 4 /uL (0-25.1); HYALINE CASTS 0 /uL (0-3.1); PH,URINE 5.5 (5.0-8.0); URINE APPEARANCE CLEAR; URINE BACTERIA 35 /uL (0-1359); URINE BILIRUBIN NEGATIVE (NEGATIVE); URINE COLOR YELLOW; URINE GLUCOSE (UA) NEGATIVE (NEGATIVE); URINE KETONE NEGATIVE (NEGATIVE); URINE LEUK ESTERASE TRACE (NEGATIVE); URINE NITRITE NEGATIVE (NEGATIVE); URINE PROTEIN NEGATIVE (NEGATIVE); URINE RBC 6 /uL (0-23.9); URINE UROBILINOGEN 0.2 mg/dL (0.2-1.0); URINE WBC 15 /uL (0-25.8)
[2023-10-22 15:42] VITALS: RESP 20; TEMP 98.8
[2023-10-22 15:52] VITALS: BP 132/74; PULSE 67
== END 2023-10-22 14:00 | disposition home or self-care (01) ==
LOC: JONCCHEMO 09:55 → J7W 09:56 → JONCCHEMO 14:00
PROVIDERS: ATTEND Internal Medicine Hematology & Oncology
DX: Z51.11 Encounter for antineoplastic chemotherapy (principal); C50.412 Malignant neoplasm of upper-outer quadrant of left female breast; Z17.0 Estrogen receptor positive status [ER+]
CPT/HCPCS: 36415; 80053; 81003; 82306; 83735; 85025; 87086; 96367; 96413

== ENCOUNTER 2023-10-28 09:38 | Day surgery (SDC) | payer OTHER ==
[2023-10-28 10:32] LABS: BASO % 1.2 % (0-2.0); EOS % 0.6 % (0-4.5); HEMATOCRIT 33.5 % (32.4-45.2); HEMOGLOBIN 11.3 GM/dL (10.7-15.3); LYMPH % 20.8 % (8-40); MCH 27.7 pg (25.7-33.7); MCHC 33.7 g/dl (32.0-36.0); MEAN CELL VOLUME 82.3 fl (80-96); MEAN PLT VOLUME 8.4 fl (7.5-11.1); MONO % 2.5 % (3.8-10.2); NEUT % 74.9 % (42.8-82.8); PLATELET COUNT 258 10^3/uL (134-434); RBC 4.07 M/mm3 (3.60-5.2); RDW 15.5 % (11.6-15.6)
[2023-10-28] MEDS: ALBUTEROL SO4 0.083% IH SOL 2.5 MG/3 ML VIAL.NEB. NEB ONE (11:00)
[2023-10-28 11:13] LABS: CHLORIDE 105 mmol/L (98-107); POTASSIUM 3.9 mmol/L (3.5-5.1); SODIUM 142 mmol/L (136-145)
[2023-10-28 11:15] LABS: CALCIUM 8.7 mg/dL (8.5-10.1)
[2023-10-28 11:16] LABS: ALBUMIN 2.8 g/dl (3.4-5.0); ANION GAP 8 mmol/L (4-13); BLOOD UREA NITROGEN 8.3 mg/dL (7-18); CO2 29 mmol/L (21-32); GLUCOSE,RANDOM 92 mg/dL (74-106); MAGNESIUM 2.1 mg/dL (1.8-2.4)
[2023-10-28 11:19] LABS: CREATININE 0.6 mg/dL (0.55-1.3); SGOT/AST 36 U/L (15-37); SGPT/ALT 33 U/L (13-61)
[2023-10-28 11:20] LABS: BILIRUBIN,TOTAL 0.7 mg/dL (0.2-1)
[2023-10-28 11:22] LABS: ALK PHOS 132 U/L (45-117)
[2023-10-28] MEDS: DEXAMETHASONE SODIUM PHOSPHATE 4 MG, ONDANSETRON INJECTION 8 MG, DIPHENHYDRAMINE 25 MG ... IVPB ONE (11:30)
[2023-10-28] MEDS: FAMOTIDINE 20 MG/50 ML IVPB 20 MG/50 ML MG IVPB ONE (12:11)
[2023-10-28] MEDS: PACLITAXEL 144 MG in SODIUM CHLORIDE 250 ML IVPB ONE (12:42)
[2023-10-28] MEDS: PORTA CATH FLUSH 10 ML IVPUSH PRN (13:45)
[2023-10-28 18:06] VITALS: RESP 20; TEMP 98.2
[2023-10-28 18:10] VITALS: BP 110/63; PULSE 76
== END 2023-10-28 14:00 | disposition home or self-care (01) ==
LOC: JONCCHEMO 09:38 → J7W 09:39 → JONCCHEMO 14:00
PROVIDERS: ATTEND Internal Medicine Hematology & Oncology
PROC: 3E04305 Introduction of Other Antineoplastic into Central Vein, Percutaneous Approach (ICD-10-PCS; principal; 2023-10-28)
PROC: 3E043GC Introduction of Other Therapeutic Substance into Central Vein, Percutaneous Approach (ICD-10-PCS; 2023-10-28)
DX: Z51.11 Encounter for antineoplastic chemotherapy (principal); C50.412 Malignant neoplasm of upper-outer quadrant of left female breast; Z17.0 Estrogen receptor positive status [ER+]
CPT/HCPCS: 36415; 80053; 83735; 85025; 94640; 96367; 96413

== ENCOUNTER 2023-11-04 10:21 | Day surgery (SDC) | payer OTHER ==
[2023-11-04 10:36] LABS: BASO % 1.5 % (0-2.0); EOS % 2.1 % (0-4.5); HEMATOCRIT 31.2 % (32.4-45.2); HEMOGLOBIN 10.3 GM/dL (10.7-15.3); LYMPH % 36.9 % (8-40); MCH 27.1 pg (25.7-33.7); MCHC 33.1 g/dl (32.0-36.0); MEAN CELL VOLUME 81.7 fl (80-96); MEAN PLT VOLUME 8.1 fl (7.5-11.1); MONO % 6.8 % (3.8-10.2); NEUT % 52.7 % (42.8-82.8); PLATELET COUNT 287 10^3/uL (134-434); RBC 3.82 M/mm3 (3.60-5.2); RDW 14.7 % (11.6-15.6); WHITE BLOOD COUNT 2.6 K/mm3 (4.0-10.0)
[2023-11-04 10:53] LABS: CHLORIDE 106 mmol/L (98-107); POTASSIUM 3.2 mmol/L (3.5-5.1); SODIUM 142 mmol/L (136-145)
[2023-11-04 10:57] LABS: ALBUMIN 2.7 g/dl (3.4-5.0); CALCIUM 8.6 mg/dL (8.5-10.1)
[2023-11-04 10:58] LABS: ANION GAP 8 mmol/L (4-13); BLOOD UREA NITROGEN 5.9 mg/dL (7-18); CO2 28 mmol/L (21-32); GLUCOSE,RANDOM 160 mg/dL (74-106)
[2023-11-04 11:01] LABS: CREATININE 0.5 mg/dL (0.55-1.3); SGOT/AST 38 U/L (15-37); SGPT/ALT 42 U/L (13-61)
[2023-11-04 11:02] LABS: BILIRUBIN,TOTAL 0.7 mg/dL (0.2-1); TOT PROT 5.9 g/dl (6.4-8.2)
[2023-11-04 11:03] LABS: ALK PHOS 122 U/L (45-117)
[2023-11-04] MEDS: DEXAMETHASONE SODIUM PHOSPHATE 4 MG, ONDANSETRON INJECTION 8 MG, DIPHENHYDRAMINE 25 MG ... IVPB ONE (11:57)
[2023-11-04] MEDS: POTASSIUM CHLORIDE TABS 20 MEQ TABLET.ER (FP) PO SCH (12:37)
[2023-11-04] MEDS: FAMOTIDINE 20 MG/50 ML IVPB 20 MG/50 ML MG IVPB ONE (13:07)
[2023-11-04] MEDS: PACLITAXEL 144 MG in SODIUM CHLORIDE 250 ML IVPB ONE (13:28)
[2023-11-04] MEDS: PORTA CATH FLUSH 10 ML IVPUSH PRN (14:45)
[2023-11-04 15:47] VITALS: RESP 20; TEMP 98.5
[2023-11-04 16:07] VITALS: BP 122/69; PULSE 76
== END 2023-11-04 15:15 | disposition home or self-care (01) ==
LOC: JONCCHEMO 10:21 → J7W 10:22 → JONCCHEMO 15:15
PROVIDERS: ATTEND Internal Medicine Hematology & Oncology
DX: Z51.11 Encounter for antineoplastic chemotherapy (principal); C50.412 Malignant neoplasm of upper-outer quadrant of left female breast; Z17.0 Estrogen receptor positive status [ER+]
CPT/HCPCS: 36415; 74018-TC-FY; 80053; 82607; 82728; 83540; 83550; 83735; 84439; 84443; 85025; 96367; 96413

== ENCOUNTER 2023-11-06 13:05 | Day surgery (SDC) | payer OTHER ==
[2023-11-06] MEDS: TBO-FILGRASTIM 480 MCG/0.8 ML DISP.SYRIN SQ ONE ×2 (13:10→13:15)
[2023-11-06 16:25] VITALS: BP 138/65; PULSE 98; RESP 20; TEMP 98.6
== END 2023-11-06 13:20 | disposition home or self-care (01) ==
LOC: JONCCHEMO 13:05 → J7W 13:06 → JONCCHEMO 13:20
PROVIDERS: ATTEND Internal Medicine Hematology & Oncology
PROC: 3E013GC Introduction of Other Therapeutic Substance into Subcutaneous Tissue, Percutaneous Approach (ICD-10-PCS; principal; 2023-11-06)
DX: C50.412 Malignant neoplasm of upper-outer quadrant of left female breast (principal); Z76.89 Persons encountering health services in other specified circumstances
CPT/HCPCS: 96372; J1447

== ENCOUNTER 2023-11-07 13:47 | Day surgery (SDC) | payer OTHER ==
[2023-11-07] MEDS: TBO-FILGRASTIM 480 MCG/0.8 ML DISP.SYRIN SQ ONE (13:57)
[2023-11-07 17:14] VITALS: BP 151/88; PULSE 108; RESP 20; TEMP 98.7
== END 2023-11-07 14:20 | disposition home or self-care (01) ==
LOC: J7W 13:47 → JONCCHEMO 13:47
PROVIDERS: ATTEND Internal Medicine Hematology & Oncology
PROC: 3E013GC Introduction of Other Therapeutic Substance into Subcutaneous Tissue, Percutaneous Approach (ICD-10-PCS; principal; 2023-11-07)
DX: C50.412 Malignant neoplasm of upper-outer quadrant of left female breast (principal); Z76.89 Persons encountering health services in other specified circumstances
CPT/HCPCS: 96372; J1447

== ENCOUNTER 2023-11-09 09:23 | Inpatient (IN) | payer OTHER ==
[2023-11-09] MEDS ORDERED: ONDANSETRON 4 MG/2 ML VIAL ONE ×2 (10:42→16:31)
[2023-11-09] MEDS: LACTATED RINGERS SOLUTION 1000 ML INFUS.BAG IV ONE ×2 (11:36→17:16)
[2023-11-09] MEDS: ONDANSETRON 4 MG/2 ML VIAL IVPUSH ONE ×2 (11:36→16:43)
[2023-11-09 11:47] LABS: HEMOGLOBIN 11.2 GM/dL (10.7-15.3); MCH 27.5 pg (25.7-33.7); MEAN CELL VOLUME 83.3 fl (80-96); MEAN PLT VOLUME 8.3 fl (7.5-11.1); PLATELET COUNT 344 10^3/uL (134-434); RBC 4.08 M/mm3 (3.60-5.2); WHITE BLOOD COUNT 8.2 K/mm3 (4.0-10.0)
[2023-11-09 12:28] LABS: POTASSIUM 3.2 mmol/L (3.5-5.1)
[2023-11-09 12:33] LABS: BLOOD UREA NITROGEN 9.1 mg/dL (7-18); CALCIUM 9.1 mg/dL (8.5-10.1); MAGNESIUM 2.2 mg/dL (1.8-2.4)
[2023-11-09 12:34] LABS: ALBUMIN 3.1 g/dl (3.4-5.0)
[2023-11-09 12:38] LABS: BILIRUBIN,TOTAL 1.2 mg/dL (0.2-1); CREATININE 0.6 mg/dL (0.55-1.3)
[2023-11-09 12:46] LABS: ANISOCYTOSIS 1+; MACROCYTOSIS 0
[2023-11-09] MEDS ORDERED: FAMOTIDINE 20 MG/50 ML IVPB 20 MG/50 ML MG IVPB ONE (16:31)
[2023-11-09] MEDS ORDERED: KCL 10 MEQ IVPB 30 MEQ/300 ML INFUS.BAG IVPB ONE (16:32)
[2023-11-09] MEDS: FAMOTIDINE 20 MG/50 ML IVPB 20 MG/50 ML MG IVPB ONE (16:43)
[2023-11-09] MEDS: KCL 10 MEQ IVPB 10 MEQ/100 ML INFUS.BAG IVPB SCH (17:16)
[2023-11-09] MEDS: SODIUM CHLORIDE FOR INHALATION 3 ML VIAL.NEB IH ONE (18:04)
[2023-11-09] MEDS ORDERED: ALBUTEROL SO4 2.5/IPRATROPIUM 0.5 INH SOL 3 ML VIAL.NEB. NEB ONE (20:10)
[2023-11-09] MEDS: ALBUTEROL SO4 2.5/IPRATROPIUM 0.5 INH SOL 3 ML VIAL.NEB. NEB ONE (20:16)
[2023-11-10 01:07] VITALS: RESP 18
[2023-11-10 09:47] LABS: HEMATOCRIT 26.9 % (32.4-45.2); MCH 27.6 pg (25.7-33.7); MCHC 33.6 g/dl (32.0-36.0); MEAN CELL VOLUME 82.2 fl (80-96); MEAN PLT VOLUME 8.5 fl (7.5-11.1); PLATELET COUNT 293 10^3/uL (134-434); RBC 3.27 M/mm3 (3.60-5.2); RDW 16.3 % (11.6-15.6); WHITE BLOOD COUNT 4.1 K/mm3 (4.0-10.0)
[2023-11-10] MEDS: METOCLOPRAMIDE HCL INJECTION 10 MG/2 ML VIAL IVPUSH PRN (10:01)
[2023-11-10] MEDS: ENOXAPARIN NA (PORCINE) 40 MG/0.4 ML DISP.SYRIN SQ SCH (10:01)
[2023-11-10] MEDS: PANTOPRAZOLE SODIUM 40 MG VIAL IVPUSH SCH (10:01)
[2023-11-10 10:05] LABS: POTASSIUM 3.7 mmol/L (3.5-5.1)
[2023-11-10 10:11] LABS: CALCIUM 8.2 mg/dL (8.5-10.1)
[2023-11-10 10:12] LABS: BLOOD UREA NITROGEN 8.3 mg/dL (7-18)
[2023-11-10 10:15] LABS: CREATININE 0.6 mg/dL (0.55-1.3); PHOSPHOROUS 3.5 mg/dL (2.5-4.9)
[2023-11-10] MEDS: DEXTROSE 5%-0.45% SALINE 1,000 ML IV SCH (11:59)
[2023-11-11] MEDS: ONDANSETRON 4 MG/2 ML VIAL IVPUSH PRN (10:16)
[2023-11-11 14:46] VITALS: BP 101/61; PULSE 78; TEMP 98.5
[2023-11-11 20:26] VITALS: BMI 22.0
== END 2023-11-11 15:47 | disposition home or self-care (01) | DRG 598 ==
LOC: JER 09:23 → JERBED 16:50 → OBSVTOIN 17:19 → J6S 23:49
PROVIDERS: ADMIT Internal Medicine; ATTEND Internal Medicine
DX: C50.912 Malignant neoplasm of unspecified site of left female breast (principal); R18.8 Other ascites; R11.2 Nausea with vomiting, unspecified
CPT/HCPCS: 36415; 74176-TC; 80048; 80053; 83735; 84100; 85025; 85027; 93005; 93010; 99285-25; G0378

== ENCOUNTER 2023-11-18 09:50 | Day surgery (SDC) | payer OTHER ==
[2023-11-18 10:54] LABS: BASO % 0.5 % (0-2.0); EOS % 0.1 % (0-4.5); HEMATOCRIT 37.3 % (32.4-45.2); HEMOGLOBIN 12.3 GM/dL (10.7-15.3); LYMPH % 14.8 % (8-40); MCH 27.8 pg (25.7-33.7); MCHC 33.1 g/dl (32.0-36.0); MEAN CELL VOLUME 83.9 fl (80-96); MEAN PLT VOLUME 9.1 fl (7.5-11.1); MONO % 8.9 % (3.8-10.2); NEUT % 75.7 % (42.8-82.8); PLATELET COUNT 322 10^3/uL (134-434); RBC 4.44 M/mm3 (3.60-5.2); RDW 17.2 % (11.6-15.6); WHITE BLOOD COUNT 10.8 K/mm3 (4.0-10.0)
[2023-11-18 10:59] LABS: CHLORIDE 100 mmol/L (98-107); POTASSIUM 3.1 mmol/L (3.5-5.1); SODIUM 136 mmol/L (136-145)
[2023-11-18 11:02] LABS: ALBUMIN 2.9 g/dl (3.4-5.0); ANION GAP 9 mmol/L (4-13); BLOOD UREA NITROGEN 10.4 mg/dL (7-18); CO2 27 mmol/L (21-32); GLUCOSE,RANDOM 139 mg/dL (74-106); MAGNESIUM 2.1 mg/dL (1.8-2.4)
[2023-11-18 11:05] LABS: CREATININE 0.8 mg/dL (0.55-1.3); SGOT/AST 43 U/L (15-37); SGPT/ALT 38 U/L (13-61)
[2023-11-18 11:06] LABS: BILIRUBIN,TOTAL 1.2 mg/dL (0.2-1)
[2023-11-18 11:07] LABS: TOT PROT 6.1 g/dl (6.4-8.2)
[2023-11-18 11:08] LABS: ALK PHOS 125 U/L (45-117)
[2023-11-18] MEDS: FAMOTIDINE 20 MG/50 ML IVPB 20 MG/50 ML MG IVPB ONE (12:15)
[2023-11-18] MEDS: POTASSIUM CHLORIDE TABS 20 MEQ TABLET.ER (FP) PO ONE (12:16)
[2023-11-18] MEDS: DEXAMETHASONE SODIUM PHOSPHATE 4 MG, ONDANSETRON INJECTION 8 MG, DIPHENHYDRAMINE 25 MG ... IVPB ONE (12:55)
[2023-11-18] MEDS: PACLITAXEL 144 MG in SODIUM CHLORIDE 250 ML IVPB ONE (13:42)
[2023-11-18] MEDS: PORTA CATH FLUSH 10 ML IVPUSH PRN (14:50)
[2023-11-18 15:01] VITALS: RESP 20; TEMP 98.4
[2023-11-18 15:55] VITALS: BP 130/73; PULSE 79
== END 2023-11-18 15:00 | disposition home or self-care (01) ==
LOC: JONCCHEMO 09:50 → J7W 09:51 → JONCCHEMO 15:00
PROVIDERS: ATTEND Internal Medicine Hematology & Oncology
DX: Z51.11 Encounter for antineoplastic chemotherapy (principal); C50.412 Malignant neoplasm of upper-outer quadrant of left female breast
CPT/HCPCS: 36415; 80053; 83735; 85025; 96367; 96413

== ENCOUNTER 2023-11-25 10:16 | Day surgery (SDC) | payer OTHER ==
[2023-11-25] MEDS: IRON SUCROSE INJECTION 200 MG in SODIUM CHLORIDE 100 ML IVPB ONE (11:05)
[2023-11-25 11:08] LABS: BASO % 2.4 % (0-2.0); EOS % 1.1 % (0-4.5); HEMATOCRIT 31.9 % (32.4-45.2); HEMOGLOBIN 10.8 GM/dL (10.7-15.3); LYMPH % 26.1 % (8-40); MEAN CELL VOLUME 82.3 fl (80-96); MEAN PLT VOLUME 8.8 fl (7.5-11.1); MONO % 7.6 % (3.8-10.2); NEUT % 62.8 % (42.8-82.8); PLATELET COUNT 273 10^3/uL (134-434); RBC 3.88 M/mm3 (3.60-5.2); WHITE BLOOD COUNT 4.6 K/mm3 (4.0-10.0)
[2023-11-25 11:13] LABS: INR 1.06 (0.83-1.09); PROTHROMBIN TIME (PATIENT) 12.2 SEC (9.7-13.0)
[2023-11-25 11:16] LABS: ACTIVATED PTT 33.8 SECONDS (25.2-36.5)
[2023-11-25 11:29] LABS: POTASSIUM 3.7 mmol/L (3.5-5.1)
[2023-11-25 11:36] LABS: ALBUMIN 2.7 g/dl (3.4-5.0); CALCIUM 9.1 mg/dL (8.5-10.1)
[2023-11-25 11:37] LABS: BLOOD UREA NITROGEN 7.4 mg/dL (7-18)
[2023-11-25 11:40] LABS: CREATININE 0.6 mg/dL (0.55-1.3)
[2023-11-25 11:41] LABS: TOT PROT 6.2 g/dl (6.4-8.2)
[2023-11-25] MEDS: DEXAMETHASONE SODIUM PHOSPHATE 4 MG, ONDANSETRON INJECTION 8 MG, DIPHENHYDRAMINE 25 MG ... IVPB ONE (11:48)
[2023-11-25] MEDS: POTASSIUM CHLORIDE TABS 20 MEQ TABLET.ER (FP) PO ONE (11:55)
[2023-11-25] MEDS: FAMOTIDINE 20 MG/50 ML IVPB 20 MG/50 ML MG IVPB ONE (12:27)
[2023-11-25] MEDS: PACLITAXEL 144 MG in SODIUM CHLORIDE 250 ML IVPB ONE (13:13)
[2023-11-25 15:32] VITALS: BP 130/89; PULSE 108; RESP 22; TEMP 97.8
== END 2023-11-25 14:40 | disposition home or self-care (01) ==
LOC: JONCCHEMO 10:16 → J7W 10:37 → JONCCHEMO 14:40
PROVIDERS: ATTEND Internal Medicine Hematology & Oncology
DX: Z51.11 Encounter for antineoplastic chemotherapy (principal); C50.912 Malignant neoplasm of unspecified site of left female breast; Z17.0 Estrogen receptor positive status [ER+]; E61.1 Iron deficiency
CPT/HCPCS: 36415; 80053; 83735; 85025; 85610; 85730; 96367; 96413; J1756

== ENCOUNTER 2023-12-02 10:16 | Day surgery (SDC) | payer OTHER ==
[~2023-12-02 10:16] MED LIST: TBO-FILGRASTIM 480 MCG/0.8 ML DISP.SYRIN SQ ONE
[2023-12-02 10:42] LABS: BASO % 1.4 % (0-2.0); EOS % 1.7 % (0-4.5); HEMATOCRIT 31.6 % (32.4-45.2); HEMOGLOBIN 10.8 GM/dL (10.7-15.3); LYMPH % 28.7 % (8-40); MCH 28.2 pg (25.7-33.7); MCHC 34.1 g/dl (32.0-36.0); MEAN CELL VOLUME 82.7 fl (80-96); MONO % 10.8 % (3.8-10.2); NEUT % 57.4 % (42.8-82.8); PLATELET COUNT 362 10^3/uL (134-434); RBC 3.83 M/mm3 (3.60-5.2); RDW 16.1 % (11.6-15.6); WHITE BLOOD COUNT 3.2 K/mm3 (4.0-10.0)
[2023-12-02] MEDS: IRON SUCROSE INJECTION 200 MG in SODIUM CHLORIDE 100 ML IVPB ONE (11:00)
[2023-12-02 11:07] LABS: CALCIUM 9.3 mg/dL (8.5-10.1)
[2023-12-02 11:08] LABS: MAGNESIUM 1.9 mg/dL (1.8-2.4)
[2023-12-02 11:11] LABS: CREATININE 0.9 mg/dL (0.55-1.3)
[2023-12-02 11:12] LABS: TOT PROT 6.4 g/dl (6.4-8.2)
[2023-12-02] MEDS: DEXAMETHASONE SODIUM PHOSPHATE 4 MG, ONDANSETRON INJECTION 8 MG, DIPHENHYDRAMINE 25 MG ... IVPB ONE (11:39)
[2023-12-02] MEDS: FAMOTIDINE 20 MG/50 ML IVPB 20 MG/50 ML MG IVPB ONE (12:20)
[2023-12-02] MEDS: POTASSIUM CHLORIDE TABS 20 MEQ TABLET.ER (FP) PO ONE (12:58)
[2023-12-02] MEDS: POTASSIUM CHLORIDE ORAL LIQUID 20 MEQ/15 ML PO ONE (12:58)
[2023-12-02] MEDS: PACLITAXEL 144 MG in SODIUM CHLORIDE 250 ML IVPB ONE (12:58)
[2023-12-02] MEDS: KCL 10 MEQ IVPB 10 MEQ/100 ML INFUS.BAG IVPB SCH (14:04)
[2023-12-02 14:06] VITALS: RESP 20; TEMP 98.5
[2023-12-02] MEDS: PORTA CATH FLUSH 10 ML IVPUSH PRN (16:10)
[2023-12-02 16:20] VITALS: BP 130/79; PULSE 87
== END 2023-12-02 16:32 | disposition home or self-care (01) ==
LOC: JONCCHEMO 10:16 → J7W 10:17 → JONCCHEMO 16:32
PROVIDERS: ATTEND Internal Medicine Hematology & Oncology
DX: Z51.11 Encounter for antineoplastic chemotherapy (principal); C50.412 Malignant neoplasm of upper-outer quadrant of left female breast; Z17.0 Estrogen receptor positive status [ER+]; E61.1 Iron deficiency
CPT/HCPCS: 36415; 80053; 82378; 83735; 85025; 86300; 96366; 96367; 96413; J1756

== ENCOUNTER → 2023-12-04 | Day surgery (SDC) | payer OTHER ==
[2023-12-04 17:23] LABS: BF WBC & OTHER NUCLEATED CELLS 64 /mm3; BODY FLUID MACROPHAGES 34 %; BODY FLUID MESOTHELIAL 40 %
[2023-12-05 15:11] LABS: BODY FLUID ALBUMIN 1.9 g/dL (Not Estab.)
== END | disposition home or self-care (01) ==
LOC: JRADIR 12:51
PROVIDERS: ATTEND Internal Medicine Hematology & Oncology
PROC: 0W9G3ZX Drainage of Peritoneal Cavity, Percutaneous Approach, Diagnostic (ICD-10-PCS; principal; 2023-12-04)
DX: R18.8 Other ascites (principal)
CPT/HCPCS: 36415; 49083; 76942-TC; 82042; 82150; 82465; 82945; 83615; 83986; 84157; 84478; 87070; 87075; 87102; 87116; 87205; 87206; 87210; 88108; 88305-TC

== ENCOUNTER 2023-12-09 09:30 | Day surgery (SDC) | payer OTHER ==
[2023-12-09] MEDS ORDERED: POTASSIUM CHLORIDE ORAL LIQUID 20 MEQ/15 ML PO ONE (10:00)
[2023-12-09] MEDS: IRON SUCROSE INJECTION 200 MG in SODIUM CHLORIDE 100 ML IVPB ONE (10:05)
[2023-12-09 10:15] LABS: BASO % 0.9 % (0-2.0); EOS % 0.9 % (0-4.5); HEMATOCRIT 30.8 % (32.4-45.2); HEMOGLOBIN 10.5 GM/dL (10.7-15.3); LYMPH % 20.2 % (8-40); MCH 28.1 pg (25.7-33.7); MEAN CELL VOLUME 82.5 fl (80-96); MEAN PLT VOLUME 8.1 fl (7.5-11.1); MONO % 8.5 % (3.8-10.2); NEUT % 69.5 % (42.8-82.8); PLATELET COUNT 412 10^3/uL (134-434); RBC 3.73 M/mm3 (3.60-5.2); RDW 16.7 % (11.6-15.6); WHITE BLOOD COUNT 5.3 K/mm3 (4.0-10.0)
[2023-12-09 10:39] LABS: POTASSIUM 3.4 mmol/L (3.5-5.1)
[2023-12-09 10:41] LABS: CALCIUM 8.6 mg/dL (8.5-10.1)
[2023-12-09 10:42] LABS: ALBUMIN 2.6 g/dl (3.4-5.0); BLOOD UREA NITROGEN 4.2 mg/dL (7-18); MAGNESIUM 1.8 mg/dL (1.8-2.4)
[2023-12-09 10:45] LABS: CREATININE 0.6 mg/dL (0.55-1.3)
[2023-12-09 10:47] LABS: BILIRUBIN,TOTAL 0.7 mg/dL (0.2-1); TOT PROT 5.7 g/dl (6.4-8.2)
[2023-12-09] MEDS: DEXAMETHASONE SODIUM PHOSPHATE 4 MG, ONDANSETRON INJECTION 8 MG, DIPHENHYDRAMINE 25 MG ... IVPB ONE (11:01)
[2023-12-09] MEDS: POTASSIUM CHLORIDE TABS 20 MEQ TABLET.ER (FP) PO ONE (11:02)
[2023-12-09] MEDS: FAMOTIDINE 20 MG/50 ML IVPB 20 MG/50 ML MG IVPB ONE (12:00)
[2023-12-09] MEDS: PACLITAXEL 144 MG in SODIUM CHLORIDE 250 ML IVPB ONE (12:30)
[2023-12-09] MEDS: PORTA CATH FLUSH 10 ML IVPUSH PRN (13:35)
[2023-12-09 14:39] VITALS: RESP 20; TEMP 98.4
[2023-12-09 15:18] VITALS: BP 110/80; PULSE 100
== END 2023-12-09 14:00 | disposition home or self-care (01) ==
LOC: JONCCHEMO 09:30 → J7W 09:31 → JONCCHEMO 14:00
PROVIDERS: ATTEND Internal Medicine Hematology & Oncology
DX: Z51.11 Encounter for antineoplastic chemotherapy (principal); C50.412 Malignant neoplasm of upper-outer quadrant of left female breast; Z17.0 Estrogen receptor positive status [ER+]; E61.1 Iron deficiency
CPT/HCPCS: 36415; 80053; 83735; 85025; 96367; 96413; J1756

== ENCOUNTER 2023-12-16 09:50 | Day surgery (SDC) | payer OTHER ==
[2023-12-16 10:32] LABS: BASO % 0.5 % (0-2.0); EOS % 0.4 % (0-4.5); HEMATOCRIT 29.8 % (32.4-45.2); HEMOGLOBIN 10.1 GM/dL (10.7-15.3); LYMPH % 15.5 % (8-40); MCH 28.3 pg (25.7-33.7); MEAN CELL VOLUME 83.1 fl (80-96); MONO % 12.3 % (3.8-10.2); NEUT % 71.3 % (42.8-82.8); PLATELET COUNT 374 10^3/uL (134-434); RBC 3.59 M/mm3 (3.60-5.2); RDW 17.1 % (11.6-15.6); WHITE BLOOD COUNT 7.4 K/mm3 (4.0-10.0)
[2023-12-16 11:00] LABS: CHLORIDE 102 mmol/L (98-107); POTASSIUM 3.4 mmol/L (3.5-5.1); SODIUM 138 mmol/L (136-145)
[2023-12-16 11:05] LABS: ANION GAP 9 mmol/L (4-13); CALCIUM 8.9 mg/dL (8.5-10.1); CO2 28 mmol/L (21-32); GLUCOSE,RANDOM 129 mg/dL (74-106)
[2023-12-16 11:06] LABS: ALBUMIN 2.7 g/dl (3.4-5.0); BLOOD UREA NITROGEN 8.2 mg/dL (7-18); MAGNESIUM 1.8 mg/dL (1.8-2.4)
[2023-12-16 11:08] LABS: CREATININE 0.7 mg/dL (0.55-1.3); SGOT/AST 61 U/L (15-37); SGPT/ALT 95 U/L (13-61)
[2023-12-16 11:10] LABS: TOT PROT 5.8 g/dl (6.4-8.2)
[2023-12-16] MEDS: POTASSIUM CHLORIDE TABS 20 MEQ TABLET.ER (FP) PO ONE (11:10)
[2023-12-16] MEDS: IRON SUCROSE INJECTION 200 MG in SODIUM CHLORIDE 100 ML IVPB ONE (11:10)
[2023-12-16 11:11] LABS: ALK PHOS 141 U/L (45-117)
[2023-12-16 11:14] LABS: BILIRUBIN,TOTAL 0.5 mg/dL (0.2-1)
[2023-12-16] MEDS: DEXAMETHASONE SODIUM PHOSPHATE 4 MG, ONDANSETRON INJECTION 8 MG, DIPHENHYDRAMINE 25 MG ... IVPB ONE (12:04)
[2023-12-16] MEDS: FAMOTIDINE 20 MG/50 ML IVPB 20 MG/50 ML MG IVPB ONE (12:40)
[2023-12-16] MEDS: PACLITAXEL 138 MG in SODIUM CHLORIDE 250 ML IVPB ONE (13:32)
[2023-12-16] MEDS: PORTA CATH FLUSH 10 ML IVPUSH PRN (14:35)
[2023-12-16 16:23] VITALS: BP 134/85; PULSE 97; RESP 22; TEMP 98.1
== END 2023-12-16 14:40 | disposition home or self-care (01) ==
LOC: JONCCHEMO 09:50 → J7W 09:51 → JONCCHEMO 14:40
PROVIDERS: ATTEND Internal Medicine Hematology & Oncology
DX: Z51.11 Encounter for antineoplastic chemotherapy (principal); C50.412 Malignant neoplasm of upper-outer quadrant of left female breast; Z17.0 Estrogen receptor positive status [ER+]; E61.1 Iron deficiency
CPT/HCPCS: 36415; 80053; 83735; 85025; 96367; 96413; J1756

== ENCOUNTER 2023-12-23 09:09 | Day surgery (SDC) | payer OTHER ==
[2023-12-23 09:57] LABS: BASO % 0.5 % (0-2.0); EOS % 0.4 % (0-4.5); HEMATOCRIT 26.8 % (32.4-45.2); HEMOGLOBIN 9.6 GM/dL (10.7-15.3); LYMPH % 16.2 % (8-40); MCH 29.8 pg (25.7-33.7); MCHC 35.9 g/dl (32.0-36.0); MEAN CELL VOLUME 83.1 fl (80-96); MONO % 15.3 % (3.8-10.2); NEUT % 67.6 % (42.8-82.8); PLATELET COUNT 296 10^3/uL (134-434); RBC 3.23 M/mm3 (3.60-5.2); RDW 17.6 % (11.6-15.6); WHITE BLOOD COUNT 8.5 K/mm3 (4.0-10.0)
[2023-12-23 10:23] LABS: CHLORIDE 99 mmol/L (98-107); SODIUM 137 mmol/L (136-145)
[2023-12-23 10:24] LABS: CALCIUM 8.3 mg/dL (8.5-10.1); POTASSIUM 2.8 mmol/L (3.5-5.1)
[2023-12-23 10:25] LABS: ALBUMIN 2.6 g/dl (3.4-5.0); ANION GAP 10 mmol/L (4-13); BLOOD UREA NITROGEN 7.7 mg/dL (7-18); CO2 28 mmol/L (21-32); GLUCOSE,RANDOM 107 mg/dL (74-106); MAGNESIUM 1.4 mg/dL (1.8-2.4)
[2023-12-23 10:29] LABS: CREATININE 0.6 mg/dL (0.55-1.3); SGOT/AST 38 U/L (15-37); SGPT/ALT 107 U/L (13-61)
[2023-12-23 10:30] LABS: BILIRUBIN,TOTAL 1.4 mg/dL (0.2-1); TOT PROT 5.7 g/dl (6.4-8.2)
[2023-12-23 10:31] LABS: ALK PHOS 159 U/L (45-117)
[2023-12-23 10:40] LABS: IRON SERUM 25 ug/dL (50-175); TOTAL IRON BINDING CAPACITY 147 ug/dL (250-450)
[2023-12-23] MEDS: FAMOTIDINE 20 MG/50 ML IVPB 20 MG/50 ML MG IVPB ONE (10:47)
[2023-12-23] MEDS: DEXAMETHASONE SODIUM PHOSPHATE 4 MG, ONDANSETRON INJECTION 8 MG, DIPHENHYDRAMINE 25 MG ... IVPB ONE (11:57)
[2023-12-23] MEDS: KCL 10 MEQ IVPB 10 MEQ/100 ML INFUS.BAG IVPB SCH (11:59)
[2023-12-23] MEDS: PACLITAXEL 138 MG in SODIUM CHLORIDE 250 ML IVPB ONE (12:39)
[2023-12-23] MEDS: POTASSIUM CHLORIDE TABS 20 MEQ TABLET.ER (FP) PO ONE (12:40)
[2023-12-23 12:43] LABS: EPI CELLS 2 /uL (0-25.1); HYALINE CASTS 2 /uL (0-3.1); PH,URINE 6.5 (5.0-8.0); URINE APPEARANCE TURBID; URINE BACTERIA 156 /uL (0-1359); URINE BILIRUBIN 1+ (NEGATIVE); URINE COLOR DK YELLOW; URINE GLUCOSE (UA) NEGATIVE (NEGATIVE); URINE KETONE NEGATIVE (NEGATIVE); URINE LEUK ESTERASE 3+ (NEGATIVE); URINE NITRITE NEGATIVE (NEGATIVE); URINE PROTEIN 3+ (NEGATIVE); URINE RBC 50 /uL (0-23.9); URINE WBC 6842 /uL (0-25.8)
[2023-12-23 13:31] LABS: YEAST NEGATIVE (NEGATIVE)
[2023-12-23] MEDS: MAGNESIUM SULF 50% (8.12 MEQ/2 ML-1 GM VIAL) IVPB ONE (14:10)
[2023-12-23] MEDS: MAGNESIUM 2GM/50ML STERILE WATER IVPB IVPB ONE (14:30)
[2023-12-23] MEDS: PORTA CATH FLUSH 10 ML IVPUSH PRN (15:20)
[2023-12-23] MEDS: MAGNESIUM OXIDE 400 MG TABLET (FP) PO ONE (15:36)
[2023-12-23 16:08] VITALS: TEMP 98.2
[2023-12-23 16:25] VITALS: BP 127/85; PULSE 70; RESP 20
== END 2023-12-23 16:00 | disposition home or self-care (01) ==
LOC: JONCCHEMO 09:09
PROVIDERS: ATTEND Internal Medicine Hematology & Oncology
DX: Z51.11 Encounter for antineoplastic chemotherapy (principal); C50.412 Malignant neoplasm of upper-outer quadrant of left female breast; C80.0 Disseminated malignant neoplasm, unspecified; E61.1 Iron deficiency; E87.6 Hypokalemia
CPT/HCPCS: 36415; 80053; 81003; 82728; 83540; 83550; 83735; 85025; 87086; 96366; 96367; 96413

== ENCOUNTER 2023-12-24 08:47 | Inpatient (IN) | payer OTHER ==
[2023-12-24] MEDS ORDERED: CEFTRIAXONE 1 GM/50 ML BAG ONE (09:53)
[2023-12-24] MEDS: SODIUM CHLORIDE 500 ML IV STA (09:54)
[2023-12-24] MEDS: SODIUM CHLORIDE 1,000 ML IV STA (10:45)
[2023-12-24 10:46] LABS: VENOUS BASE EXCESS 0.7 mmol/L (-2-2); VENOUS O2 SATURATION 57.4 % (70-80); VENOUS PCO2 35.6 mmHg (38-52); VENOUS PH 7.455 (7.310-7.410)
[2023-12-24 10:49] LABS: HEMATOCRIT 26.9 % (32.4-45.2); HEMOGLOBIN 9.1 GM/dL (10.7-15.3); LYMPH % 6.7 % (8-40); MCH 28.6 pg (25.7-33.7); MCHC 33.9 g/dl (32.0-36.0); MEAN CELL VOLUME 84.2 fl (80-96); MONO % 5.9 % (3.8-10.2); NEUT % 86.4 % (42.8-82.8); PLATELET COUNT 257 10^3/uL (134-434); RDW 17.5 % (11.6-15.6); WHITE BLOOD COUNT 9.6 K/mm3 (4.0-10.0)
[2023-12-24 10:53] LABS: EPI CELLS 2 /uL (0-25.1); HYALINE CASTS 0 /uL (0-3.1); URINE APPEARANCE TURBID; URINE BACTERIA >9,000 /uL (0-1359); URINE BILIRUBIN NEGATIVE (NEGATIVE); URINE COLOR YELLOW; URINE GLUCOSE (UA) NEGATIVE (NEGATIVE); URINE KETONE NEGATIVE (NEGATIVE); URINE LEUK ESTERASE 3+ (NEGATIVE); URINE NITRITE NEGATIVE (NEGATIVE); URINE PROTEIN 3+ (NEGATIVE); URINE WBC 19070 /uL (0-25.8)
[2023-12-24] MEDS ORDERED: ONDANSETRON 4 MG/2 ML VIAL ONE (10:57)
[2023-12-24 11:01] LABS: ACTIVATED PTT 28.5 SECONDS (25.2-36.5); INR 1.17 (0.83-1.09); PROTHROMBIN TIME (PATIENT) 13.4 SEC (9.7-13.0)
[2023-12-24 11:02] LABS: URINE RBC 427.3 /uL (0-23.9); YEAST NEGATIVE (NEGATIVE)
[2023-12-24 11:09] LABS: POTASSIUM 3.5 mmol/L (3.5-5.1)
[2023-12-24 11:11] LABS: ALBUMIN 2.2 g/dl (3.4-5.0); CALCIUM 8.2 mg/dL (8.5-10.1)
[2023-12-24 11:14] LABS: CREATININE 0.7 mg/dL (0.55-1.3)
[2023-12-24] MEDS: ONDANSETRON 4 MG/2 ML VIAL IVPUSH ONE (11:14)
[2023-12-24 11:16] LABS: BILIRUBIN,TOTAL 1.4 mg/dL (0.2-1)
[2023-12-24 12:32] LABS: MAGNESIUM 1.9 mg/dL (1.8-2.4)
[2023-12-24 12:47] LABS: POTASSIUM 2.9 mmol/L (3.5-5.1)
[2023-12-24] MEDS ORDERED: VANCOMYCIN/WATER 1250 MG 1,250 MG/250 ML BAG IVPB ONE (13:29)
[2023-12-24] MEDS: VANCOMYCIN/WATER 1250 MG 1,250 MG/250 ML BAG IVPB SCH (13:34)
[2023-12-24 15:19] VITALS: BMI 21.9
[2023-12-24] MEDS: POTASSIUM CHLORIDE ORAL LIQUID 20 MEQ/15 ML PO ONE (19:09)
[2023-12-24] MEDS: KCL 10 MEQ IVPB 10 MEQ/100 ML INFUS.BAG IVPB SCH (19:09)
[2023-12-24] MEDS: ONDANSETRON 4 MG/2 ML VIAL IVPUSH PRN (20:51)
[2023-12-24] MEDS: IBUPROFEN 400 MG TABLET (FP) PO PRN (23:04)
[2023-12-25] MEDS: DEXTROSE 5%-0.45% SALINE 1,000 ML IV SCH (03:38)
[2023-12-25] MEDS: CEFTRIAXONE 1 GM in DEXTROSE 5%-WATER - 50 ML IVPB SCH (10:10)
[2023-12-25] MEDS: PANTOPRAZOLE 40 MG TABLET PO SCH (10:10)
[2023-12-25 11:01] LABS: HEMATOCRIT 24.6 % (32.4-45.2); HEMOGLOBIN 8.5 GM/dL (10.7-15.3); MCHC 34.6 g/dl (32.0-36.0); MEAN CELL VOLUME 83.8 fl (80-96); MEAN PLT VOLUME 8.3 fl (7.5-11.1); PLATELET COUNT 221 10^3/uL (134-434); RBC 2.93 M/mm3 (3.60-5.2); RDW 17.6 % (11.6-15.6); WHITE BLOOD COUNT 8.3 K/mm3 (4.0-10.0)
[2023-12-25 11:23] LABS: CHLORIDE 103 mmol/L (98-107); SODIUM 137 mmol/L (136-145)
[2023-12-25 11:26] LABS: BLOOD UREA NITROGEN 12.3 mg/dL (7-18); CALCIUM 7.8 mg/dL (8.5-10.1); CO2 25 mmol/L (21-32); GLUCOSE,RANDOM 124 mg/dL (74-106)
[2023-12-25 11:28] LABS: ANION GAP 9 mmol/L (4-13); POTASSIUM 2.7 mmol/L (3.5-5.1)
[2023-12-25 11:29] LABS: CREATININE 0.6 mg/dL (0.55-1.3); SGOT/AST 34 U/L (15-37); SGPT/ALT 80 U/L (13-61)
[2023-12-25 11:31] LABS: BILIRUBIN,TOTAL 1.5 mg/dL (0.2-1); TOT PROT 4.6 g/dl (6.4-8.2)
[2023-12-25 11:32] LABS: ALK PHOS 140 U/L (45-117)
[2023-12-25 11:48] LABS: ANISOCYTOSIS 0; HELMET CELLS 0; HOWELL-JOLLY BODIES 0; MACROCYTOSIS 0; OVALOCYTE 0; ROULEAU 0; SICKELED CELLS 0; TARGET CELLS 0; TEAR DROP CELLS 0; TOXIC GRANULATION 0
[2023-12-25] MEDS: POTASSIUM CHLORIDE ORAL LIQUID 20 MEQ/15 ML PO ONE (12:34)
[2023-12-25] MEDS: KCL 10 MEQ IVPB 10 MEQ/100 ML INFUS.BAG IVPB SCH ×2 (14:22→17:43)
[2023-12-25] MEDS: FAMOTIDINE 20 MG TABLET PO SCH (14:22)
[2023-12-25] MEDS: ALBUTEROL SO4 0.083% IH SOL 2.5 MG/3 ML VIAL.NEB. NEB PRN (22:42)
[2023-12-25] MEDS: guaiFENesin 200 MG/10 ML 10 ML UNIT-DOSE CUPS PO PRN (23:36)
[2023-12-26 07:51] LABS: HEMATOCRIT 22.2 % (32.4-45.2); HEMOGLOBIN 7.6 GM/dL (10.7-15.3); MCH 28.8 pg (25.7-33.7); MCHC 34.2 g/dl (32.0-36.0); MEAN CELL VOLUME 84.3 fl (80-96); MEAN PLT VOLUME 8.6 fl (7.5-11.1); PLATELET COUNT 178 10^3/uL (134-434); RBC 2.63 M/mm3 (3.60-5.2); RDW 17.3 % (11.6-15.6)
[2023-12-26 08:10] LABS: CHLORIDE 102 mmol/L (98-107); SODIUM 135 mmol/L (136-145)
[2023-12-26 08:15] LABS: CALCIUM 7.1 mg/dL (8.5-10.1)
[2023-12-26 08:16] LABS: ALBUMIN 1.9 g/dl (3.4-5.0); BLOOD UREA NITROGEN 8.7 mg/dL (7-18); CO2 23 mmol/L (21-32); GLUCOSE,RANDOM 145 mg/dL (74-106)
[2023-12-26 08:18] LABS: SGOT/AST 27 U/L (15-37); SGPT/ALT 65 U/L (13-61)
[2023-12-26 08:19] LABS: CREATININE 0.5 mg/dL (0.55-1.3)
[2023-12-26 08:20] LABS: ANION GAP 10 mmol/L (4-13); BILIRUBIN,TOTAL 1.2 mg/dL (0.2-1); POTASSIUM 2.5 mmol/L (3.5-5.1); TOT PROT 4.5 g/dl (6.4-8.2)
[2023-12-26 08:21] LABS: ALK PHOS 122 U/L (45-117)
[2023-12-26 09:45] LABS: ANISOCYTOSIS 0; MACROCYTOSIS 0
[2023-12-26] MEDS ORDERED: PIPERACILLIN/TAZOB 3.375 GM 3.375 GM in DEXTROSE 5%-WATER - 50 ML IVPB SCH (10:00)
[2023-12-26] MEDS: KCL 10 MEQ IVPB 10 MEQ/100 ML INFUS.BAG IVPB SCH ×2 (10:43→19:02)
[2023-12-26] MEDS: POTASSIUM CHLORIDE ORAL LIQUID 20 MEQ/15 ML PO ONE (10:44)
[2023-12-26] MEDS: POTASSIUM CHLORIDE 10 MEQ in SODIUM CHLORIDE 0.45% 1,000 ML IVPB SCH (11:29)
[2023-12-26] MEDS: PIPERACILLIN/TAZOB 3.375 GM 3.375 GM in DEXTROSE 5%-WATER - 50 ML IVPB SCH (12:03)
[2023-12-26] MEDS: POTASSIUM CHLORIDE 40 MEQ in SODIUM CHLORIDE 0.45% 1,000 ML IVPB SCH (18:31)
[2023-12-26] MEDS ORDERED: KCL 10 MEQ IVPB 10 MEQ/100 ML INFUS.BAG IVPB SCH (21:00)
[2023-12-27 09:40] LABS: HEMATOCRIT 22.3 % (32.4-45.2); HEMOGLOBIN 7.6 GM/dL (10.7-15.3); MCH 28.7 pg (25.7-33.7); MCHC 34.1 g/dl (32.0-36.0); MEAN CELL VOLUME 84.1 fl (80-96); MEAN PLT VOLUME 8.8 fl (7.5-11.1); PLATELET COUNT 135 10^3/uL (134-434); RBC 2.65 M/mm3 (3.60-5.2); RDW 17.4 % (11.6-15.6)
[2023-12-27 09:49] LABS: WHITE BLOOD COUNT 2.4 K/mm3 (4.0-10.0)
[2023-12-27 09:57] LABS: POTASSIUM 3.4 mmol/L (3.5-5.1)
[2023-12-27 09:59] LABS: CALCIUM 7.8 mg/dL (8.5-10.1)
[2023-12-27 10:00] LABS: ALBUMIN 1.8 g/dl (3.4-5.0); BLOOD UREA NITROGEN 6.4 mg/dL (7-18); MAGNESIUM 1.9 mg/dL (1.8-2.4)
[2023-12-27 10:03] LABS: CREATININE 0.5 mg/dL (0.55-1.3); PHOSPHOROUS 2.2 mg/dL (2.5-4.9)
[2023-12-27 10:04] LABS: BILIRUBIN,TOTAL 0.8 mg/dL (0.2-1); TOT PROT 4.4 g/dl (6.4-8.2)
[2023-12-27 10:37] LABS: ANISOCYTOSIS 0; HELMET CELLS 0; HOWELL-JOLLY BODIES 0; MACROCYTOSIS 0; OVALOCYTE 0; ROULEAU 0; SICKELED CELLS 0; TARGET CELLS 0; TEAR DROP CELLS 0; TOXIC GRANULATION 0
[2023-12-27] MEDS: KCL 10 MEQ IVPB 10 MEQ/100 ML INFUS.BAG IVPB SCH (11:17)
[2023-12-27] MEDS: SODIUM CHLORIDE 0.45%/POT 20 MEQ/1,000 ML INFUS.BAG IV SCH (12:23)
[2023-12-27] MEDS: POTASSIUM PHOSPHATE 30 MM in SODIUM CHLORIDE 500 ML IVPB ONE (17:53)
[2023-12-27] MEDS: IRON SUCROSE INJECTION 200 MG in SODIUM CHLORIDE 100 ML IVPB ONE (20:16)
[2023-12-28 08:33] LABS: HEMATOCRIT 20.9 % (32.4-45.2); MCH 28.3 pg (25.7-33.7); MCHC 33.5 g/dl (32.0-36.0); MEAN CELL VOLUME 84.4 fl (80-96); MEAN PLT VOLUME 8.3 fl (7.5-11.1); PLATELET COUNT 158 10^3/uL (134-434); RBC 2.48 M/mm3 (3.60-5.2); RDW 17.4 % (11.6-15.6)
[2023-12-28 08:39] LABS: WHITE BLOOD COUNT 1.9 K/mm3 (4.0-10.0)
[2023-12-28 08:50] LABS: POTASSIUM 3.5 mmol/L (3.5-5.1)
[2023-12-28 08:55] LABS: CALCIUM 7.7 mg/dL (8.5-10.1)
[2023-12-28 08:56] LABS: ALBUMIN 1.7 g/dl (3.4-5.0); BLOOD UREA NITROGEN 5.5 mg/dL (7-18); MAGNESIUM 1.7 mg/dL (1.8-2.4)
[2023-12-28 08:59] LABS: CREATININE 0.6 mg/dL (0.55-1.3)
[2023-12-28 09:00] LABS: BILIRUBIN,TOTAL 0.6 mg/dL (0.2-1)
[2023-12-28 09:01] LABS: TOT PROT 4.1 g/dl (6.4-8.2)
[2023-12-28 09:26] LABS: ANISOCYTOSIS 0; HELMET CELLS 0; HOWELL-JOLLY BODIES 0; MACROCYTOSIS 0; OVALOCYTE 0; ROULEAU 0; SICKELED CELLS 0; TARGET CELLS 0; TEAR DROP CELLS 0; TOXIC GRANULATION 0
[2023-12-28] MEDS: MEROPENEM 1 GM in DEXTROSE 5%-WATER 100 ML IVPB SCH (14:14)
[2023-12-29 08:49] LABS: BASO % 1.2 % (0-2.0); EOS % 0.6 % (0-4.5); HEMATOCRIT 21.2 % (32.4-45.2); HEMOGLOBIN 7.3 GM/dL (10.7-15.3); LYMPH % 14.6 % (8-40); MCH 28.4 pg (25.7-33.7); MCHC 34.5 g/dl (32.0-36.0); MEAN CELL VOLUME 82.3 fl (80-96); MEAN PLT VOLUME 8.1 fl (7.5-11.1); MONO % 9.2 % (3.8-10.2); NEUT % 74.4 % (42.8-82.8); PLATELET COUNT 186 10^3/uL (134-434); RBC 2.57 M/mm3 (3.60-5.2); WHITE BLOOD COUNT 2.9 K/mm3 (4.0-10.0)
[2023-12-29 09:08] LABS: POTASSIUM 3.3 mmol/L (3.5-5.1)
[2023-12-29 09:17] LABS: CALCIUM 7.9 mg/dL (8.5-10.1)
[2023-12-29 09:18] LABS: ALBUMIN 1.8 g/dl (3.4-5.0); BLOOD UREA NITROGEN 3.1 mg/dL (7-18)
[2023-12-29 09:21] LABS: CREATININE 0.4 mg/dL (0.55-1.3)
[2023-12-29 09:23] LABS: BILIRUBIN,TOTAL 0.7 mg/dL (0.2-1); TOT PROT 4.3 g/dl (6.4-8.2)
[2023-12-29] MEDS: KCL 10 MEQ IVPB 10 MEQ/100 ML INFUS.BAG IVPB SCH (21:00)
[2023-12-30 08:34] LABS: BASO % 0.9 % (0-2.0); HEMATOCRIT 21.2 % (32.4-45.2); HEMOGLOBIN 7.2 GM/dL (10.7-15.3); LYMPH % 17.4 % (8-40); MCH 28.4 pg (25.7-33.7); MEAN CELL VOLUME 83.4 fl (80-96); MEAN PLT VOLUME 7.9 fl (7.5-11.1); MONO % 14.4 % (3.8-10.2); NEUT % 66.3 % (42.8-82.8); PLATELET COUNT 218 10^3/uL (134-434); RBC 2.54 M/mm3 (3.60-5.2); RDW 17.4 % (11.6-15.6); WHITE BLOOD COUNT 3.3 K/mm3 (4.0-10.0)
[2023-12-30 08:44] LABS: POTASSIUM 3.5 mmol/L (3.5-5.1)
[2023-12-30 08:49] LABS: CALCIUM 7.9 mg/dL (8.5-10.1)
[2023-12-30 08:50] LABS: ALBUMIN 1.9 g/dl (3.4-5.0); BLOOD UREA NITROGEN 3.1 mg/dL (7-18)
[2023-12-30 08:53] LABS: CREATININE 0.4 mg/dL (0.55-1.3)
[2023-12-30 08:54] LABS: BILIRUBIN,TOTAL 0.7 mg/dL (0.2-1); TOT PROT 4.3 g/dl (6.4-8.2)
[2023-12-31 08:29] LABS: EOS % 1.2 % (0-4.5); HEMATOCRIT 23.6 % (32.4-45.2); HEMOGLOBIN 7.9 GM/dL (10.7-15.3); LYMPH % 19.1 % (8-40); MCHC 33.6 g/dl (32.0-36.0); MEAN CELL VOLUME 83.4 fl (80-96); MEAN PLT VOLUME 7.8 fl (7.5-11.1); MONO % 17.7 % (3.8-10.2); PLATELET COUNT 292 10^3/uL (134-434); RBC 2.83 M/mm3 (3.60-5.2); RDW 17.8 % (11.6-15.6); WHITE BLOOD COUNT 4.1 K/mm3 (4.0-10.0)
[2023-12-31 08:33] LABS: CHLORIDE 103 mmol/L (98-107); POTASSIUM 3.3 mmol/L (3.5-5.1); SODIUM 137 mmol/L (136-145)
[2023-12-31 08:36] LABS: CALCIUM 8.2 mg/dL (8.5-10.1)
[2023-12-31 08:37] LABS: ALBUMIN 2.1 g/dl (3.4-5.0); ANION GAP 8 mmol/L (4-13); CO2 26 mmol/L (21-32); GLUCOSE,RANDOM 104 mg/dL (74-106)
[2023-12-31 08:40] LABS: CREATININE 0.5 mg/dL (0.55-1.3); SGOT/AST 28 U/L (15-37); SGPT/ALT 40 U/L (13-61)
[2023-12-31 08:41] LABS: BILIRUBIN,TOTAL 0.7 mg/dL (0.2-1); BLOOD UREA NITROGEN 2.9 mg/dL (7-18); TOT PROT 4.8 g/dl (6.4-8.2)
[2023-12-31 08:43] LABS: ALK PHOS 119 U/L (45-117)
[2023-12-31] MEDS: IRON SUCROSE INJECTION 100 MG in SODIUM CHLORIDE 95 ML IVPB ONE (12:16)
[2023-12-31] MEDS: KCL 10 MEQ IVPB 10 MEQ/100 ML INFUS.BAG IVPB SCH ×2 (12:56→17:57)
[2023-12-31] MEDS: POTASSIUM CHLORIDE TABS 20 MEQ TABLET.ER (FP) PO ONE (17:42)
[2024-01-01 06:57] LABS: BASO % 1.2 % (0-2.0); HEMATOCRIT 26.5 % (32.4-45.2); HEMOGLOBIN 9.1 GM/dL (10.7-15.3); LYMPH % 35.5 % (8-40); MCHC 34.2 g/dl (32.0-36.0); MEAN CELL VOLUME 84.9 fl (80-96); MEAN PLT VOLUME 7.9 fl (7.5-11.1); MONO % 17.1 % (3.8-10.2); NEUT % 45.2 % (42.8-82.8); PLATELET COUNT 354 10^3/uL (134-434); RBC 3.12 M/mm3 (3.60-5.2); RDW 17.7 % (11.6-15.6); WHITE BLOOD COUNT 5.9 K/mm3 (4.0-10.0)
[2024-01-01 07:21] LABS: POTASSIUM 3.9 mmol/L (3.5-5.1)
[2024-01-01 07:23] LABS: CALCIUM 8.1 mg/dL (8.5-10.1)
[2024-01-01 07:24] LABS: ALBUMIN 2.2 g/dl (3.4-5.0); BLOOD UREA NITROGEN 3.1 mg/dL (7-18); MAGNESIUM 1.6 mg/dL (1.8-2.4)
[2024-01-01 07:26] LABS: CREATININE 0.6 mg/dL (0.55-1.3)
[2024-01-01 07:27] LABS: PHOSPHOROUS 2.3 mg/dL (2.5-4.9)
[2024-01-01 07:28] LABS: BILIRUBIN,TOTAL 0.8 mg/dL (0.2-1)
[2024-01-01 07:29] LABS: TOT PROT 5.1 g/dl (6.4-8.2)
[2024-01-01] MEDS: MAGNESIUM 2GM/50ML STERILE WATER IVPB IVPB ONE (13:35)
[2024-01-01] MEDS: ALBUTEROL SO4 2.5/IPRATROPIUM 0.5 INH SOL 3 ML VIAL.NEB. NEB PRN (14:12)
[2024-01-01] MEDS: IRON SUCROSE INJECTION 100 MG in SODIUM CHLORIDE 95 ML IVPB ONE (16:43)
[2024-01-01] MEDS: POTASSIUM PHOSPHATE 15 MM in SODIUM CHLORIDE 250 ML IVPB ONE (19:35)
[2024-01-01] MEDS: IBUPROFEN 400 MG TABLET (FP) PO ONE (20:18)
[2024-01-02 07:40] LABS: HEMATOCRIT 21.2 % (32.4-45.2); HEMOGLOBIN 7.1 GM/dL (10.7-15.3); MCH 28.3 pg (25.7-33.7); MCHC 33.7 g/dl (32.0-36.0); MEAN CELL VOLUME 84.1 fl (80-96); MEAN PLT VOLUME 7.4 fl (7.5-11.1); PLATELET COUNT 304 10^3/uL (134-434); RBC 2.52 M/mm3 (3.60-5.2); RDW 17.4 % (11.6-15.6); WHITE BLOOD COUNT 3.7 K/mm3 (4.0-10.0)
[2024-01-02 08:01] LABS: POTASSIUM 3.2 mmol/L (3.5-5.1)
[2024-01-02 08:08] LABS: ALBUMIN 1.6 g/dl (3.4-5.0); BLOOD UREA NITROGEN 4.7 mg/dL (7-18); CALCIUM 7.5 mg/dL (8.5-10.1)
[2024-01-02 08:11] LABS: CREATININE 0.5 mg/dL (0.55-1.3)
[2024-01-02 08:13] LABS: BILIRUBIN,TOTAL 0.4 mg/dL (0.2-1); TOT PROT 3.8 g/dl (6.4-8.2)
[2024-01-02 09:26] LABS: ANISOCYTOSIS 0; MACROCYTOSIS 0; OVALOCYTE 1+
[2024-01-02] MEDS: MAGNESIUM SULF 50% (8.12 MEQ/2 ML-1 GM VIAL) IVPB ONE (16:49)
[2024-01-02] MEDS: POTASSIUM CHLORIDE TABS 20 MEQ TABLET.ER (FP) PO SCH (16:49)
[2024-01-02] MEDS: KCL 10 MEQ IVPB 10 MEQ/100 ML INFUS.BAG IVPB SCH (16:50)
[2024-01-02] MEDS: PORTA CATH FLUSH 10 ML IVPUSH PRN (19:24)
[2024-01-03 08:30] LABS: POTASSIUM 3.6 mmol/L (3.5-5.1)
[2024-01-03 08:43] LABS: CALCIUM 7.5 mg/dL (8.5-10.1)
[2024-01-03 08:44] LABS: ALBUMIN 1.7 g/dl (3.4-5.0); BLOOD UREA NITROGEN 3.6 mg/dL (7-18); MAGNESIUM 2.3 mg/dL (1.8-2.4)
[2024-01-03 08:47] LABS: CREATININE 0.4 mg/dL (0.55-1.3); PHOSPHOROUS 2.3 mg/dL (2.5-4.9)
[2024-01-03 08:48] LABS: BILIRUBIN,TOTAL 0.6 mg/dL (0.2-1); TOT PROT 4.2 g/dl (6.4-8.2)
[2024-01-03] MEDS: NAPH,MB-DB/K PH,MBDB POWDER PACKET PO SCH (09:47)
[2024-01-04] MEDS: IRON SUCROSE INJECTION 200 MG in SODIUM CHLORIDE 100 ML IVPB ONE (17:44)
[2024-01-05 09:26] LABS: POTASSIUM 3.2 mmol/L (3.5-5.1)
[2024-01-05 09:33] LABS: ALBUMIN 1.6 g/dl (3.4-5.0)
[2024-01-05 09:34] LABS: BLOOD UREA NITROGEN 6.7 mg/dL (7-18); CALCIUM 7.7 mg/dL (8.5-10.1)
[2024-01-05 09:35] LABS: BILIRUBIN,TOTAL 0.4 mg/dL (0.2-1); MAGNESIUM 2.1 mg/dL (1.8-2.4); TOT PROT 4.2 g/dl (6.4-8.2)
[2024-01-05 09:37] LABS: CREATININE 0.5 mg/dL (0.55-1.3); PHOSPHOROUS 2.8 mg/dL (2.5-4.9)
[2024-01-05] MEDS: KCL 10 MEQ IVPB 10 MEQ/100 ML INFUS.BAG IVPB SCH (15:56)
[2024-01-06 08:56] LABS: BASO % 0.8 % (0-2.0); EOS % 1.5 % (0-4.5); HEMATOCRIT 23.1 % (32.4-45.2); HEMOGLOBIN 7.8 GM/dL (10.7-15.3); MCH 28.2 pg (25.7-33.7); MCHC 33.9 g/dl (32.0-36.0); MEAN CELL VOLUME 83.3 fl (80-96); MEAN PLT VOLUME 7.1 fl (7.5-11.1); MONO % 16.8 % (3.8-10.2); NEUT % 62.9 % (42.8-82.8); PLATELET COUNT 292 10^3/uL (134-434); RBC 2.77 M/mm3 (3.60-5.2); RDW 16.8 % (11.6-15.6); WHITE BLOOD COUNT 5.9 K/mm3 (4.0-10.0)
[2024-01-09 07:33] VITALS: RESP 20
[2024-01-09 09:58] LABS: BASO % 1.3 % (0-2.0); EOS % 1.1 % (0-4.5); HEMATOCRIT 24.4 % (32.4-45.2); HEMOGLOBIN 8.2 GM/dL (10.7-15.3); LYMPH % 17.2 % (8-40); MCH 27.8 pg (25.7-33.7); MCHC 33.5 g/dl (32.0-36.0); MEAN CELL VOLUME 83.1 fl (80-96); MEAN PLT VOLUME 7.3 fl (7.5-11.1); MONO % 9.6 % (3.8-10.2); NEUT % 70.8 % (42.8-82.8); PLATELET COUNT 276 10^3/uL (134-434); RBC 2.94 M/mm3 (3.60-5.2); RDW 16.1 % (11.6-15.6); WHITE BLOOD COUNT 7.6 K/mm3 (4.0-10.0)
[2024-01-09 10:13] LABS: POTASSIUM 3.5 mmol/L (3.5-5.1)
[2024-01-09 10:20] LABS: ALBUMIN 1.6 g/dl (3.4-5.0)
[2024-01-09 10:21] LABS: BLOOD UREA NITROGEN 6.8 mg/dL (7-18)
[2024-01-09 10:22] LABS: BILIRUBIN,TOTAL 0.4 mg/dL (0.2-1); TOT PROT 4.6 g/dl (6.4-8.2)
[2024-01-09 10:23] LABS: CALCIUM 8.1 mg/dL (8.5-10.1)
[2024-01-09 10:24] LABS: CREATININE 0.4 mg/dL (0.55-1.3)
[2024-01-09 14:59] VITALS: BP 114/63; PULSE 96; TEMP 98.6
== END 2024-01-09 15:47 | disposition home or self-care (01) | DRG 872 ==
LOC: JER 08:47 → JERBED 12:07 → J7W 13:50
PROVIDERS: ADMIT Internal Medicine; ATTEND Internal Medicine
PROC: 0W9G3ZZ Drainage of Peritoneal Cavity, Percutaneous Approach (ICD-10-PCS; principal; 2024-01-01)
DX: A41.89 Other specified sepsis (principal); N39.0 Urinary tract infection, site not specified; C78.5 Secondary malignant neoplasm of large intestine and rectum; R18.8 Other ascites; C50.912 Malignant neoplasm of unspecified site of left female breast; B96.20 Unspecified Escherichia coli [E. coli] as the cause of diseases classified elsewhere; R11.2 Nausea with vomiting, unspecified; E87.6 Hypokalemia; D72.819 Decreased white blood cell count, unspecified; D64.9 Anemia, unspecified
CPT/HCPCS: 0241U-QW; 36415; 71045-TC-FY; 71046-TC-FY; 76942-TC; 80048; 80053; 81003; 82803; 83605; 83735; 84100; 84132; 84484; 85025; 85610; 85730; 86850; 86900; 86901; 86922; 87040; 87086; 87186; 93005; 93010; 94010; 94640; 99291; J1756; J3480

== ENCOUNTER 2024-01-14 11:21 | Inpatient (IN) | payer OTHER ==
[2024-01-14] MEDS ORDERED: ACETAMINOPHEN INJECTION 100 ML IVPB ONE (11:48)
[2024-01-14] MEDS ORDERED: ONDANSETRON 4 MG/2 ML VIAL ONE (11:49)
[2024-01-14] MEDS ORDERED: FAMOTIDINE 20 MG/50 ML IVPB 20 MG/50 ML MG IVPB ONE (11:55)
[2024-01-14] MEDS: LACTATED RINGERS SOLUTION 1000 ML INFUS.BAG IV ONE (12:43)
[2024-01-14] MEDS: ONDANSETRON 4 MG/2 ML VIAL IVPUSH ONE (12:43)
[2024-01-14] MEDS: ACETAMINOPHEN 1000 MG/100 ML BAG IVPB ONE (12:43)
[2024-01-14] MEDS: FAMOTIDINE 20 MG/50 ML IVPB 20 MG/50 ML MG IVPB ONE (12:44)
[2024-01-14 12:52] LABS: BASO % 0.7 % (0-2.0); EOS % 0.1 % (0-4.5); HEMATOCRIT 32.4 % (32.4-45.2); HEMOGLOBIN 10.6 GM/dL (10.7-15.3); LYMPH % 11.3 % (8-40); MCH 27.8 pg (25.7-33.7); MCHC 32.7 g/dl (32.0-36.0); MEAN CELL VOLUME 84.8 fl (80-96); MEAN PLT VOLUME 7.7 fl (7.5-11.1); MONO % 6.3 % (3.8-10.2); NEUT % 81.6 % (42.8-82.8); PLATELET COUNT 349 10^3/uL (134-434); RBC 3.82 M/mm3 (3.60-5.2); RDW 16.4 % (11.6-15.6)
[2024-01-14 12:54] LABS: WHITE BLOOD COUNT 13.9 K/mm3 (4.0-10.0)
[2024-01-14 13:07] LABS: POTASSIUM 3.1 mmol/L (3.5-5.1)
[2024-01-14 13:09] LABS: CALCIUM 8.9 mg/dL (8.5-10.1)
[2024-01-14 13:11] LABS: MAGNESIUM 2.4 mg/dL (1.8-2.4)
[2024-01-14 13:12] LABS: ALBUMIN 2.4 g/dl (3.4-5.0)
[2024-01-14 13:13] LABS: CREATININE 0.7 mg/dL (0.55-1.3); PHOSPHOROUS 4.1 mg/dL (2.5-4.9)
[2024-01-14 13:14] LABS: BILIRUBIN,TOTAL 0.7 mg/dL (0.2-1); TOT PROT 5.9 g/dl (6.4-8.2)
[2024-01-14 13:15] LABS: PLATELET ESTIMATE ADEQUATE
[2024-01-14] MEDS: KCL 10 MEQ IVPB 10 MEQ/100 ML INFUS.BAG IVPB SCH (14:45)
[2024-01-14] MEDS: POTASSIUM CHLORIDE TABS 20 MEQ TABLET.ER (FP) PO ONE (14:47)
[2024-01-14 15:21] LABS: EPI CELLS 12 /uL (0-25.1); HYALINE CASTS 3 /uL (0-3.1); PH,URINE 5.5 (5.0-8.0); URINE APPEARANCE TURBID; URINE BACTERIA 25 /uL (0-1359); URINE BILIRUBIN 2+ (NEGATIVE); URINE COLOR DK YELLOW; URINE GLUCOSE (UA) NEGATIVE (NEGATIVE); URINE KETONE TRACE (NEGATIVE); URINE LEUK ESTERASE 2+ (NEGATIVE); URINE NITRITE NEGATIVE (NEGATIVE); URINE PROTEIN 2+ (NEGATIVE); URINE WBC 4779 /uL (0-25.8)
[2024-01-14 15:37] LABS: URINE CRYSTALS FEW CALCIUM OXALATES /hpf; URINE RBC 300.2 /uL (0-23.9)
[2024-01-14] MEDS ORDERED: KCL 10 MEQ IVPB 10 MEQ/100 ML INFUS.BAG IVPB ONE ×2 (16:28→17:48)
[2024-01-14] MEDS: LACTATED RINGERS SOLUTION 1,000 ML/1,000 ML INFUS.BAG IV SCH (16:50)
[2024-01-14] MEDS ORDERED: ONDANSETRON 4 MG/2 ML VIAL IVPUSH PRN (16:58)
[2024-01-14 17:11] LABS: INR 1.09 (0.83-1.09); PROTHROMBIN TIME (PATIENT) 12.3 SEC (9.7-13.0)
[2024-01-14 17:14] LABS: ACTIVATED PTT 49.9 SECONDS (25.2-36.5)
[2024-01-14] MEDS: DEXTROSE 5%-0.45% SALINE 1,000 ML IV SCH (17:54)
[2024-01-14] MEDS ORDERED: ALBUTEROL SO4 2.5/IPRATROPIUM 0.5 INH SOL 3 ML VIAL.NEB. NEB ONE (21:18)
[2024-01-14] MEDS: ALBUTEROL SO4 2.5/IPRATROPIUM 0.5 INH SOL 3 ML VIAL.NEB. NEB ONE (21:29)
[2024-01-15 08:47] LABS: BASO % 0.4 % (0-2.0); EOS % 0.6 % (0-4.5); HEMATOCRIT 25.9 % (32.4-45.2); HEMOGLOBIN 8.7 GM/dL (10.7-15.3); LYMPH % 12.5 % (8-40); MCH 27.8 pg (25.7-33.7); MCHC 33.4 g/dl (32.0-36.0); MEAN CELL VOLUME 83.1 fl (80-96); MEAN PLT VOLUME 7.3 fl (7.5-11.1); MONO % 8.9 % (3.8-10.2); NEUT % 77.6 % (42.8-82.8); PLATELET COUNT 310 10^3/uL (134-434); RBC 3.11 M/mm3 (3.60-5.2); RDW 16.3 % (11.6-15.6); WHITE BLOOD COUNT 10.4 K/mm3 (4.0-10.0)
[2024-01-15 09:04] LABS: POTASSIUM 3.1 mmol/L (3.5-5.1)
[2024-01-15 09:11] LABS: ALBUMIN 1.9 g/dl (3.4-5.0); BLOOD UREA NITROGEN 11.8 mg/dL (7-18)
[2024-01-15 09:15] LABS: CREATININE 0.6 mg/dL (0.55-1.3)
[2024-01-15 09:16] LABS: BILIRUBIN,TOTAL 1.3 mg/dL (0.2-1); TOT PROT 4.6 g/dl (6.4-8.2)
[2024-01-15] MEDS: PANTOPRAZOLE SODIUM 40 MG VIAL IVPUSH SCH (09:50)
[2024-01-15] MEDS: ENOXAPARIN NA (PORCINE) 40 MG/0.4 ML DISP.SYRIN SQ SCH (09:50)
[2024-01-15] MEDS: D5-1/2NS+10 MEQ KCL - 10 MEQ/1,000 ML INFUS.BAG IV SCH (13:43)
[2024-01-15] MEDS: KCL 10 MEQ IVPB 10 MEQ/100 ML INFUS.BAG IVPB SCH (13:44)
[2024-01-15] MEDS: ACETAMINOPHEN 1000 MG/100 ML BAG IVPB PRN (22:04)
[2024-01-16 09:39] LABS: BASO % 0.7 % (0-2.0); EOS % 2.4 % (0-4.5); HEMATOCRIT 26.7 % (32.4-45.2); HEMOGLOBIN 8.9 GM/dL (10.7-15.3); LYMPH % 21.3 % (8-40); MCH 28.3 pg (25.7-33.7); MCHC 33.4 g/dl (32.0-36.0); MEAN CELL VOLUME 84.6 fl (80-96); MEAN PLT VOLUME 7.6 fl (7.5-11.1); MONO % 10.1 % (3.8-10.2); NEUT % 65.5 % (42.8-82.8); PLATELET COUNT 323 10^3/uL (134-434); RBC 3.16 M/mm3 (3.60-5.2); RDW 16.1 % (11.6-15.6); WHITE BLOOD COUNT 8.7 K/mm3 (4.0-10.0)
[2024-01-16 09:51] LABS: POTASSIUM 3.7 mmol/L (3.5-5.1)
[2024-01-16 09:54] LABS: ALBUMIN 1.9 g/dl (3.4-5.0); BLOOD UREA NITROGEN 8.5 mg/dL (7-18); CALCIUM 8.2 mg/dL (8.5-10.1)
[2024-01-16 09:57] LABS: CREATININE 0.4 mg/dL (0.55-1.3)
[2024-01-16 09:59] LABS: BILIRUBIN,TOTAL 0.6 mg/dL (0.2-1); TOT PROT 4.6 g/dl (6.4-8.2)
[2024-01-16] MEDS: ANASTROZOLE 1 MG TABLET PO SCH (14:40)
[2024-01-16] MEDS: D5-1/2NS+10 MEQ KCL - 10 MEQ/1,000 ML INFUS.BAG IV SCH (15:14)
[2024-01-16] MEDS: AMINO ACIDS 4.25%/D5W 1,000 ML IV SCH (15:14)
[2024-01-16 16:07] VITALS: BMI 23.8
[2024-01-16] MEDS: ALBUTEROL SO4 2.5/IPRATROPIUM 0.5 INH SOL 3 ML VIAL.NEB. NEB PRN (16:07)
[2024-01-16] MEDS: SODIUM CHLORIDE NASAL SPRAY 44 ML BOTTLE NS PRN (21:36)
[2024-01-17 09:53] LABS: BASO % 0.2 % (0-2.0); EOS % 2.3 % (0-4.5); HEMATOCRIT 27.6 % (32.4-45.2); HEMOGLOBIN 9.1 GM/dL (10.7-15.3); LYMPH % 20.3 % (8-40); MCH 27.9 pg (25.7-33.7); MCHC 32.8 g/dl (32.0-36.0); MEAN PLT VOLUME 7.5 fl (7.5-11.1); MONO % 10.5 % (3.8-10.2); NEUT % 66.7 % (42.8-82.8); PLATELET COUNT 306 10^3/uL (134-434); RBC 3.25 M/mm3 (3.60-5.2); RDW 16.3 % (11.6-15.6); WHITE BLOOD COUNT 7.6 K/mm3 (4.0-10.0)
[2024-01-17 10:17] LABS: POTASSIUM 3.1 mmol/L (3.5-5.1)
[2024-01-17 10:20] LABS: ALBUMIN 1.9 g/dl (3.4-5.0); BLOOD UREA NITROGEN 11.1 mg/dL (7-18); CALCIUM 8.2 mg/dL (8.5-10.1)
[2024-01-17 10:23] LABS: CREATININE 0.4 mg/dL (0.55-1.3)
[2024-01-17 10:25] LABS: BILIRUBIN,TOTAL 0.7 mg/dL (0.2-1); TOT PROT 4.7 g/dl (6.4-8.2)
[2024-01-17] MEDS: KCL 10 MEQ IVPB 10 MEQ/100 ML INFUS.BAG IVPB SCH (10:58)
[2024-01-17] MEDS: AMINO ACIDS 4.25%/D5W 1,000 ML IV SCH (18:23)
[2024-01-18 09:06] LABS: BASO % 0.3 % (0-2.0); EOS % 2.7 % (0-4.5); HEMATOCRIT 26.9 % (32.4-45.2); HEMOGLOBIN 8.9 GM/dL (10.7-15.3); MCH 28.1 pg (25.7-33.7); MEAN PLT VOLUME 7.5 fl (7.5-11.1); MONO % 11.8 % (3.8-10.2); NEUT % 62.2 % (42.8-82.8); PLATELET COUNT 289 10^3/uL (134-434); RBC 3.16 M/mm3 (3.60-5.2); RDW 16.3 % (11.6-15.6); WHITE BLOOD COUNT 6.2 K/mm3 (4.0-10.0)
[2024-01-18 09:17] LABS: POTASSIUM 3.3 mmol/L (3.5-5.1)
[2024-01-18 09:22] LABS: ALBUMIN 1.9 g/dl (3.4-5.0); BLOOD UREA NITROGEN 15.1 mg/dL (7-18); CALCIUM 8.4 mg/dL (8.5-10.1)
[2024-01-18 09:26] LABS: BILIRUBIN,TOTAL 0.9 mg/dL (0.2-1); CREATININE 0.3 mg/dL (0.55-1.3)
[2024-01-18 09:27] LABS: TOT PROT 4.6 g/dl (6.4-8.2)
[2024-01-18] MEDS: KCL 10 MEQ IVPB 10 MEQ/100 ML INFUS.BAG IVPB SCH (15:28)
[2024-01-19 09:36] LABS: BASO % 0.9 % (0-2.0); EOS % 2.6 % (0-4.5); HEMATOCRIT 26.3 % (32.4-45.2); HEMOGLOBIN 8.7 GM/dL (10.7-15.3); LYMPH % 19.2 % (8-40); MCH 27.8 pg (25.7-33.7); MCHC 33.1 g/dl (32.0-36.0); MEAN CELL VOLUME 84.1 fl (80-96); MEAN PLT VOLUME 7.6 fl (7.5-11.1); MONO % 11.5 % (3.8-10.2); NEUT % 65.8 % (42.8-82.8); PLATELET COUNT 301 10^3/uL (134-434); RBC 3.13 M/mm3 (3.60-5.2); RDW 16.3 % (11.6-15.6); WHITE BLOOD COUNT 7.7 K/mm3 (4.0-10.0)
[2024-01-19 09:55] LABS: POTASSIUM 3.3 mmol/L (3.5-5.1)
[2024-01-19 10:20] LABS: CALCIUM 8.5 mg/dL (8.5-10.1)
[2024-01-19 10:21] LABS: BLOOD UREA NITROGEN 17.9 mg/dL (7-18)
[2024-01-19 10:26] LABS: CREATININE 0.3 mg/dL (0.55-1.3)
[2024-01-19 10:27] LABS: BILIRUBIN,TOTAL 0.7 mg/dL (0.2-1)
[2024-01-19 10:28] LABS: TOT PROT 4.7 g/dl (6.4-8.2)
[2024-01-19] MEDS: KCL 10 MEQ IVPB 10 MEQ/100 ML INFUS.BAG IVPB SCH (11:21)
[2024-01-19] MEDS: IRON SUCROSE INJECTION 100 MG in SODIUM CHLORIDE 95 ML IVPB ONE (18:34)
[2024-01-20 08:22] LABS: BASO % 0.6 % (0-2.0); EOS % 2.5 % (0-4.5); HEMATOCRIT 26.1 % (32.4-45.2); HEMOGLOBIN 8.6 GM/dL (10.7-15.3); LYMPH % 22.6 % (8-40); MCH 27.4 pg (25.7-33.7); MCHC 32.9 g/dl (32.0-36.0); MEAN CELL VOLUME 83.4 fl (80-96); MEAN PLT VOLUME 7.6 fl (7.5-11.1); MONO % 12.2 % (3.8-10.2); NEUT % 62.1 % (42.8-82.8); PLATELET COUNT 311 10^3/uL (134-434); RBC 3.13 M/mm3 (3.60-5.2); RDW 16.3 % (11.6-15.6); WHITE BLOOD COUNT 6.2 K/mm3 (4.0-10.0)
[2024-01-20 08:25] LABS: POTASSIUM 3.2 mmol/L (3.5-5.1)
[2024-01-20 08:32] LABS: CALCIUM 8.3 mg/dL (8.5-10.1)
[2024-01-20 08:36] LABS: CREATININE 0.4 mg/dL (0.55-1.3)
[2024-01-20 08:38] LABS: BILIRUBIN,TOTAL 0.6 mg/dL (0.2-1); TOT PROT 4.7 g/dl (6.4-8.2)
[2024-01-20] MEDS: KCL 10 MEQ IVPB 10 MEQ/100 ML INFUS.BAG IVPB SCH (15:00)
[2024-01-20] MEDS: IRON SUCROSE INJECTION 100 MG in SODIUM CHLORIDE 95 ML IVPB ONE (18:09)
[2024-01-20] MEDS: POTASSIUM CHLORIDE 20 MEQ in AMINO ACIDS 4.25%/D5W 1,000 ML IV SCH (19:03)
[2024-01-21 10:42] LABS: POTASSIUM 3.5 mmol/L (3.5-5.1)
[2024-01-21 10:52] LABS: ALBUMIN 2.1 g/dl (3.4-5.0); BLOOD UREA NITROGEN 16.8 mg/dL (7-18)
[2024-01-21 10:53] LABS: CALCIUM 8.6 mg/dL (8.5-10.1); MAGNESIUM 1.5 mg/dL (1.8-2.4)
[2024-01-21 10:56] LABS: CREATININE 0.3 mg/dL (0.55-1.3); PHOSPHOROUS 2.3 mg/dL (2.5-4.9)
[2024-01-21 10:57] LABS: BILIRUBIN,TOTAL 0.9 mg/dL (0.2-1); TOT PROT 4.9 g/dl (6.4-8.2)
[2024-01-21] MEDS: MAGNESIUM SULF 50% (8.12 MEQ/2 ML-1 GM VIAL) IVPB ONE (14:32)
[2024-01-21] MEDS: MAGNESIUM 2GM/50ML STERILE WATER IVPB IVPB ONE (14:35)
[2024-01-21] MEDS: POTASSIUM PHOSPHATE 30 MM in SODIUM CHLORIDE 500 ML IVPB ONE (14:37)
[2024-01-22 09:20] LABS: POTASSIUM 3.6 mmol/L (3.5-5.1)
[2024-01-22 09:25] LABS: ALBUMIN 1.9 g/dl (3.4-5.0); BLOOD UREA NITROGEN 14.5 mg/dL (7-18); CALCIUM 8.2 mg/dL (8.5-10.1); MAGNESIUM 1.8 mg/dL (1.8-2.4)
[2024-01-22 09:28] LABS: CREATININE 0.3 mg/dL (0.55-1.3)
[2024-01-22 09:29] LABS: PHOSPHOROUS 3.7 mg/dL (2.5-4.9)
[2024-01-22 09:30] LABS: BILIRUBIN,TOTAL 0.6 mg/dL (0.2-1); TOT PROT 4.5 g/dl (6.4-8.2)
[2024-01-22] MEDS: MAGNESIUM 2GM/50ML STERILE WATER IVPB IVPB ONE (12:29)
[2024-01-22] MEDS: POTASSIUM PHOSPHATE 15 MM in SODIUM CHLORIDE 250 ML IVPB ONE (12:32)
[2024-01-22 12:55] LABS: PREALBUMIN 12.8 mg/dl (20-40)
[2024-01-22] MEDS ORDERED: ALBUTEROL SO4 2.5/IPRATROPIUM 0.5 INH SOL 3 ML VIAL.NEB. NEB PRN (14:56)
[2024-01-22] MEDS: ALBUTEROL SO4 2.5/IPRATROPIUM 0.5 INH SOL 3 ML VIAL.NEB. NEB PRN (15:15)
[2024-01-23 10:12] LABS: BASO % 0.8 % (0-2.0); EOS % 3.1 % (0-4.5); HEMATOCRIT 26.6 % (32.4-45.2); LYMPH % 23.5 % (8-40); MCH 28.5 pg (25.7-33.7); MCHC 33.7 g/dl (32.0-36.0); MEAN CELL VOLUME 84.6 fl (80-96); MEAN PLT VOLUME 8.1 fl (7.5-11.1); MONO % 12.5 % (3.8-10.2); NEUT % 60.1 % (42.8-82.8); PLATELET COUNT 281 10^3/uL (134-434); RBC 3.15 M/mm3 (3.60-5.2); RDW 16.2 % (11.6-15.6); WHITE BLOOD COUNT 6.3 K/mm3 (4.0-10.0)
[2024-01-23 10:20] LABS: POTASSIUM 3.7 mmol/L (3.5-5.1)
[2024-01-23 10:22] LABS: ALBUMIN 2.2 g/dl (3.4-5.0); CALCIUM 8.2 mg/dL (8.5-10.1)
[2024-01-23 10:26] LABS: CREATININE 0.4 mg/dL (0.55-1.3)
[2024-01-23 10:27] LABS: BILIRUBIN,TOTAL 0.6 mg/dL (0.2-1); TOT PROT 5.2 g/dl (6.4-8.2)
[2024-01-23] MEDS: SODIUM PHOSPHATE/NA BIPHOS 133 ML ENEMA RC ONE (16:56)
[2024-01-24] MEDS: SPIRONOLACTONE 25 MG TABLET PO SCH (09:56)
[2024-01-24 10:10] LABS: POTASSIUM 3.4 mmol/L (3.5-5.1)
[2024-01-24 10:13] LABS: ALBUMIN 2.2 g/dl (3.4-5.0); BLOOD UREA NITROGEN 12.2 mg/dL (7-18); CALCIUM 8.4 mg/dL (8.5-10.1); MAGNESIUM 1.8 mg/dL (1.8-2.4)
[2024-01-24 10:16] LABS: CREATININE 0.4 mg/dL (0.55-1.3)
[2024-01-24 10:17] LABS: PHOSPHOROUS 2.9 mg/dL (2.5-4.9)
[2024-01-24 10:18] LABS: BILIRUBIN,TOTAL 0.5 mg/dL (0.2-1); TOT PROT 5.2 g/dl (6.4-8.2)
[2024-01-24] MEDS: ALBUMIN HUMAN 25% 12.5 GM/50 ML VIAL IV SCH (12:18)
[2024-01-24] MEDS: POTASSIUM PHOSPHATE 15 MM in SODIUM CHLORIDE 250 ML IVPB ONE (15:35)
[2024-01-24] MEDS ORDERED: SENNOSIDES 8.6MG TABLET (FP) PO PRN (16:10)
[2024-01-24] MEDS: POLYETHYLENE GLYCOL (HEALTHYLAX) 3350 17 GM PACKET PO SCH (17:45)
[2024-01-25 07:37] LABS: BASO % 0.9 % (0-2.0); EOS % 2.5 % (0-4.5); HEMATOCRIT 24.8 % (32.4-45.2); HEMOGLOBIN 8.4 GM/dL (10.7-15.3); LYMPH % 25.6 % (8-40); MCH 28.4 pg (25.7-33.7); MCHC 33.8 g/dl (32.0-36.0); MEAN PLT VOLUME 7.8 fl (7.5-11.1); MONO % 14.2 % (3.8-10.2); NEUT % 56.8 % (42.8-82.8); PLATELET COUNT 252 10^3/uL (134-434); RBC 2.96 M/mm3 (3.60-5.2); RDW 16.3 % (11.6-15.6); WHITE BLOOD COUNT 5.7 K/mm3 (4.0-10.0)
[2024-01-25 07:50] LABS: POTASSIUM 3.5 mmol/L (3.5-5.1)
[2024-01-25 07:56] LABS: ALBUMIN 2.4 g/dl (3.4-5.0); BLOOD UREA NITROGEN 11.1 mg/dL (7-18); CALCIUM 8.4 mg/dL (8.5-10.1)
[2024-01-25 07:59] LABS: CREATININE 0.3 mg/dL (0.55-1.3)
[2024-01-25 08:00] LABS: BILIRUBIN,TOTAL 0.6 mg/dL (0.2-1); TOT PROT 4.4 g/dl (6.4-8.2)
[2024-01-26 08:46] LABS: POTASSIUM 3.3 mmol/L (3.5-5.1)
[2024-01-26 08:54] LABS: ALBUMIN 2.5 g/dl (3.4-5.0); BLOOD UREA NITROGEN 11.8 mg/dL (7-18); CALCIUM 8.7 mg/dL (8.5-10.1); MAGNESIUM 1.6 mg/dL (1.8-2.4)
[2024-01-26 08:57] LABS: CREATININE 0.4 mg/dL (0.55-1.3); PHOSPHOROUS 3.2 mg/dL (2.5-4.9)
[2024-01-26 08:58] LABS: BILIRUBIN,TOTAL 0.5 mg/dL (0.2-1); TOT PROT 4.7 g/dl (6.4-8.2)
[2024-01-26] MEDS: SPIRONOLACTONE 25 MG TABLET PO SCH (10:16)
[2024-01-26] MEDS: KCL 10 MEQ IVPB 10 MEQ/100 ML INFUS.BAG IVPB SCH (11:46)
[2024-01-26] MEDS: POTASSIUM CHLORIDE ORAL LIQUID 20 MEQ/15 ML PO ONE (15:23)
[2024-01-26] MEDS: MAGNESIUM 2GM/50ML STERILE WATER IVPB IVPB ONE ×2 (16:20→16:21)
[2024-01-26] MEDS: POTASSIUM CHLORIDE TABS 20 MEQ TABLET.ER (FP) PO ONE (19:45)
[2024-01-27 08:33] LABS: BASO % 0.8 % (0-2.0); EOS % 2.3 % (0-4.5); HEMOGLOBIN 8.7 GM/dL (10.7-15.3); LYMPH % 23.5 % (8-40); MCHC 33.3 g/dl (32.0-36.0); MEAN CELL VOLUME 84.1 fl (80-96); MEAN PLT VOLUME 7.8 fl (7.5-11.1); MONO % 10.8 % (3.8-10.2); NEUT % 62.6 % (42.8-82.8); PLATELET COUNT 236 10^3/uL (134-434); RBC 3.09 M/mm3 (3.60-5.2); RDW 16.3 % (11.6-15.6); WHITE BLOOD COUNT 5.9 K/mm3 (4.0-10.0)
[2024-01-27 08:52] LABS: POTASSIUM 3.4 mmol/L (3.5-5.1)
[2024-01-27 08:55] LABS: ALBUMIN 2.2 g/dl (3.4-5.0); CALCIUM 8.3 mg/dL (8.5-10.1)
[2024-01-27 08:56] LABS: BLOOD UREA NITROGEN 10.5 mg/dL (7-18)
[2024-01-27 08:59] LABS: CREATININE 0.5 mg/dL (0.55-1.3)
[2024-01-27 09:00] LABS: BILIRUBIN,TOTAL 0.4 mg/dL (0.2-1); TOT PROT 4.6 g/dl (6.4-8.2)
[2024-01-27] MEDS ORDERED: PORTA CATH FLUSH 10 ML IVPUSH PRN (10:15)
[2024-01-27 10:33] LABS: MAGNESIUM 2.1 mg/dL (1.8-2.4)
[2024-01-27 10:37] LABS: PHOSPHOROUS 3.9 mg/dL (2.5-4.9)
[2024-01-27] MEDS: IRON SUCROSE INJECTION 200 MG in SODIUM CHLORIDE 100 ML IVPB ONE (11:35)
[2024-01-27] MEDS: POTASSIUM CHLORIDE TABS 20 MEQ TABLET.ER (FP) PO ONE (11:35)
[2024-01-27] MEDS: KCL 10 MEQ IVPB 10 MEQ/100 ML INFUS.BAG IVPB SCH (13:39)
[2024-01-28 09:39] LABS: BASO % 1.1 % (0-2.0); EOS % 2.5 % (0-4.5); HEMATOCRIT 28.7 % (32.4-45.2); HEMOGLOBIN 9.8 GM/dL (10.7-15.3); LYMPH % 19.9 % (8-40); MCH 28.5 pg (25.7-33.7); MEAN CELL VOLUME 83.8 fl (80-96); MEAN PLT VOLUME 8.1 fl (7.5-11.1); NEUT % 66.5 % (42.8-82.8); PLATELET COUNT 248 10^3/uL (134-434); RBC 3.42 M/mm3 (3.60-5.2); RDW 16.5 % (11.6-15.6); WHITE BLOOD COUNT 6.1 K/mm3 (4.0-10.0)
[2024-01-28 09:48] LABS: POTASSIUM 3.3 mmol/L (3.5-5.1)
[2024-01-28 09:53] LABS: ALBUMIN 2.5 g/dl (3.4-5.0); BLOOD UREA NITROGEN 7.3 mg/dL (7-18); CALCIUM 8.7 mg/dL (8.5-10.1); MAGNESIUM 1.9 mg/dL (1.8-2.4)
[2024-01-28 09:56] LABS: CREATININE 0.4 mg/dL (0.55-1.3); PHOSPHOROUS 4.1 mg/dL (2.5-4.9)
[2024-01-28 09:58] LABS: BILIRUBIN,TOTAL 0.7 mg/dL (0.2-1); TOT PROT 5.1 g/dl (6.4-8.2)
[2024-01-28] MEDS: KCL 10 MEQ IVPB 10 MEQ/100 ML INFUS.BAG IVPB SCH ×2 (11:02→20:36)
[2024-01-29 09:49] LABS: BASO % 0.9 % (0-2.0); HEMOGLOBIN 9.5 GM/dL (10.7-15.3); MCH 28.3 pg (25.7-33.7); MCHC 32.8 g/dl (32.0-36.0); MEAN CELL VOLUME 86.3 fl (80-96); MEAN PLT VOLUME 8.3 fl (7.5-11.1); MONO % 10.3 % (3.8-10.2); NEUT % 61.8 % (42.8-82.8); PLATELET COUNT 235 10^3/uL (134-434); RBC 3.36 M/mm3 (3.60-5.2); RDW 16.8 % (11.6-15.6); WHITE BLOOD COUNT 4.7 K/mm3 (4.0-10.0)
[2024-01-29 10:06] LABS: POTASSIUM 3.6 mmol/L (3.5-5.1)
[2024-01-29 10:09] LABS: ALBUMIN 2.3 g/dl (3.4-5.0); CALCIUM 8.8 mg/dL (8.5-10.1)
[2024-01-29 10:10] LABS: BLOOD UREA NITROGEN 6.9 mg/dL (7-18)
[2024-01-29 10:13] LABS: CREATININE 0.4 mg/dL (0.55-1.3)
[2024-01-29 10:14] LABS: TOT PROT 4.8 g/dl (6.4-8.2)
[2024-01-29] MEDS ORDERED: PROPOFOL 20 ML ONE (15:49)
[2024-01-29] MEDS ORDERED: SEVOFLURANE 250 ML BTL ONE (15:49)
[2024-01-29] MEDS ORDERED: MIDAZOLAM HCL 2 MG/2 ML SINGLE DOSE VIAL ONE (15:49)
[2024-01-29] MEDS ORDERED: DEXAMETHASONE SOD PHOSPHATE 4 MG/1 ML VIAL ONE (15:49)
[2024-01-29] MEDS ORDERED: LIDOCAINE HCL/PF 2% SDV 5ML VIAL ONE (15:49)
[2024-01-29] MEDS ORDERED: ONDANSETRON 4 MG/2 ML VIAL ONE (15:49)
[2024-01-29] MEDS ORDERED: ALBUTEROL SO4 HFA INHALER IH ONE (15:49)
[2024-01-29] MEDS ORDERED: ceFAZolin SODIUM 1 GM VIAL ONE (15:54)
[2024-01-29] MEDS: ceFAZolin SODIUM 1 GM VIAL IVPB ONE (16:03)
[2024-01-29] MEDS ORDERED: ACETAMINOPHEN 1000 MG/100 ML BAG IVPB PRN ×2 (16:24→16:46)
[2024-01-29] MEDS ORDERED: LACTATED RINGERS SOLUTION 1,000 ML IV SCH (16:30)
[2024-01-29] MEDS ORDERED: PORTA CATH FLUSH 10 ML IVPUSH PRN (16:46)
[2024-01-29] MEDS ORDERED: ONDANSETRON 4 MG/2 ML VIAL IVPUSH PRN (16:46)
[2024-01-29] MEDS ORDERED: SODIUM CHLORIDE NASAL SPRAY 44 ML BOTTLE NS PRN (16:46)
[2024-01-29] MEDS: LACTATED RINGERS SOLUTION 1,000 ML IV SCH (17:49)
[2024-01-30] MEDS: ALBUTEROL SO4 2.5/IPRATROPIUM 0.5 INH SOL 3 ML VIAL.NEB. NEB PRN (01:04)
[2024-01-30] MEDS: POLYETHYLENE GLYCOL (HEALTHYLAX) 3350 17 GM PACKET PO SCH (10:30)
[2024-01-30] MEDS: PANTOPRAZOLE SODIUM 40 MG VIAL IVPUSH SCH (10:30)
[2024-01-30] MEDS: ANASTROZOLE 1 MG TABLET PO SCH (10:30)
[2024-01-30] MEDS: SPIRONOLACTONE 25 MG TABLET PO SCH (10:30)
[2024-01-31] MEDS: SENNOSIDES 8.6MG TABLET (FP) PO PRN (16:47)
[2024-02-01] MEDS: PANTOPRAZOLE 40 MG TABLET PO SCH (12:53)
[2024-02-02 11:31] LABS: CALCIUM 8.3 mg/dL (8.5-10.1)
[2024-02-02 11:35] LABS: CREATININE 0.5 mg/dL (0.55-1.3)
[2024-02-02 14:51] VITALS: RESP 17
[2024-02-03 07:10] VITALS: TEMP 98.4
[2024-02-03 19:16] VITALS: BP 132/62; PULSE 69
== END 2024-02-03 19:33 | DRG 988 ==
LOC: JER 11:21 → JERBED 15:19 → J8W 01-15 02:05
PROVIDERS: ADMIT Internal Medicine; ATTEND Internal Medicine
PROC: 0W9G3ZX Drainage of Peritoneal Cavity, Percutaneous Approach, Diagnostic (ICD-10-PCS; 2024-01-24)
PROC: BT1DZZZ Fluoroscopy of Right Kidney, Ureter and Bladder (ICD-10-PCS; 2024-01-29)
PROC: 0T768DZ Dilation of Right Ureter with Intraluminal Device, Via Natural or Artificial Opening Endoscopic (ICD-10-PCS; principal; 2024-01-29 12:00)
DX: C78.4 Secondary malignant neoplasm of small intestine (principal); K56.600 Partial intestinal obstruction, unspecified as to cause; R18.8 Other ascites; N13.30 Unspecified hydronephrosis; R64 Cachexia; E87.6 Hypokalemia; D64.9 Anemia, unspecified; R11.2 Nausea with vomiting, unspecified; Z68.21 Body mass index [BMI] 21.0-21.9, adult; C50.919 Malignant neoplasm of unspecified site of unspecified female breast
CPT/HCPCS: 0241U-QW; 36415; 71045-TC-FY; 74019-TC-FY; 74021-TC-FY; 74176-TC; 76775-TC; 76942-TC; 80048; 80053; 81003; 83690; 83735; 84100; 84134; 84484; 85025; 85610; 85730; 86850; 86900; 86901; 87086; 87635; 93005; 93010; 93306-TC; 93971-TC; 94640; 94760; 97116-GP; 97162-GP; 99285-25; C2617; J0131; J1756; P9047

== ENCOUNTER → 2024-05-11 | Day surgery (SDC) | payer OTHER ==
[2024-05-11 15:04] LABS: BF WBC & OTHER NUCLEATED CELLS 45 /mm3
[2024-05-11 16:42] LABS: BODY FLUID MESOTHELIAL 8 %; BODY FLUID MONOCYTE 16 %
[2024-05-12 15:09] LABS: BODY FLUID ALBUMIN 3.2 g/dL (Not Estab.)
== END | disposition home or self-care (01) ==
LOC: JRADIR 10:19
PROVIDERS: ATTEND Internal Medicine Hematology & Oncology
PROC: 0W9G3ZZ Drainage of Peritoneal Cavity, Percutaneous Approach (ICD-10-PCS; principal; 2024-05-11)
DX: R18.8 Other ascites (principal)
CPT/HCPCS: 36415; 49083; 76942-TC; 82042; 82150; 82465; 82945; 83615; 83986; 84157; 84478; 87070; 87075; 87102; 87116; 87205; 87206; 87210; 88108; 88305-TC

== ENCOUNTER → 2024-08-17 | Day surgery (SDC) | payer OTHER ==
[2024-08-17 09:38] LABS: ABSOLUTE IMMATURE GRANULOCYTES 0.01 x10^3/uL (0.0-0.031); BASOPHILS # 0.03 x10^3/uL (0.01-0.08); EOSINOPHIL % 1.6 % (0.7-5.8); HEMATOCRIT 39.9 % (34.1-44.9); HEMOGLOBIN 13.2 g/dL (11.2-15.7); MCHC 33.1 g/dl (32.2-35.5); MEAN CELL VOLUME 86.7 fl (79.4-94.8); MONOCYTE # 0.51 x10^3/uL (0.24-0.86); MONOCYTE % 8.3 % (4.7-12.5); PLATELET COUNT 224 x10^3/uL (182-369); RDW 12.6 % (12.4-16.4)
[2024-08-17 09:47] LABS: INR 1.17 (0.83-1.09); PROTHROMBIN TIME (PATIENT) 12.9 SEC (9.7-13.0)
[2024-08-17 14:21] LABS: BODY FLUID MACROPHAGES 21 %; BODY FLUID MONOCYTE 36 %
[2024-08-17 14:22] LABS: BODY FLUID MESOTHELIAL 6 %
[2024-08-19 13:06] LABS: BODY FLUID ALBUMIN 3.2 g/dL (Not Estab.)
== END | disposition home or self-care (01) ==
LOC: JRADIR 09:13
PROVIDERS: ATTEND Internal Medicine Hematology & Oncology
PROC: 0W9G3ZX Drainage of Peritoneal Cavity, Percutaneous Approach, Diagnostic (ICD-10-PCS; principal; 2024-08-17)
DX: R18.8 Other ascites (principal); R85.69 Abnormal cytological findings in specimens from other digestive organs and abdominal cavity
CPT/HCPCS: 36415; 49083; 76942-TC; 82042; 82150; 82465; 82945; 83615; 83986; 84157; 84478; 85025; 85610; 87070; 87075; 87102; 87116; 87205; 87206; 87210; 88108; 88305-TC

== ENCOUNTER 2024-10-13 14:24 | Inpatient (IN) | payer OTHER ==
[2024-10-13 16:37] LABS: VENOUS BASE EXCESS 1.5 mmol/L (-2-2); VENOUS O2 SATURATION 71.5 % (70-80); VENOUS PCO2 43.1 mmHg (38-52); VENOUS PH 7.406 (7.310-7.410)
[2024-10-13 16:47] LABS: ABSOLUTE IMMATURE GRANULOCYTES 0.01 x10^3/uL (0.0-0.031); BASOPHILS # 0.03 x10^3/uL (0.01-0.08); EOSINOPHIL % 1.6 % (0.7-5.8); HEMATOCRIT 42.3 % (34.1-44.9); HEMOGLOBIN 13.9 g/dL (11.2-15.7); MCHC 32.9 g/dl (32.2-35.5); MEAN CELL VOLUME 87.2 fl (79.4-94.8); MEAN PLT VOLUME 10.6 fl (9.4-12.3); MONOCYTE % 7.8 % (4.7-12.5); PLATELET COUNT 221 x10^3/uL (182-369); RDW 12.2 % (12.4-16.4)
[2024-10-13 16:54] LABS: INR 1.17 (0.83-1.09); PROTHROMBIN TIME (PATIENT) 12.9 SEC (9.7-13.0)
[2024-10-13 16:57] LABS: ACTIVATED PTT 36.2 SECONDS (25.2-36.5)
[2024-10-13 17:06] LABS: POTASSIUM 3.5 mmol/L (3.5-5.1)
[2024-10-13 17:08] LABS: ALBUMIN 3.5 g/dl (3.4-5.0); BLOOD UREA NITROGEN 11.4 mg/dL (7-18); CALCIUM 9.5 mg/dL (8.5-10.1); MAGNESIUM 2.2 mg/dL (1.8-2.4)
[2024-10-13 17:12] LABS: CREATININE 0.9 mg/dL (0.55-1.3); PHOSPHOROUS 3.6 mg/dL (2.5-4.9)
[2024-10-13 17:14] LABS: TOT PROT 6.6 g/dl (6.4-8.2)
[2024-10-13] MEDS ORDERED: ONDANSETRON 4 MG TABLET PO PRN (21:30)
[2024-10-13 23:10] VITALS: BMI 24.0
[2024-10-14 08:34] LABS: ABSOLUTE IMMATURE GRANULOCYTES 0.02 x10^3/uL (0.0-0.031); BASOPHILS # 0.04 x10^3/uL (0.01-0.08); EOSINOPHIL % 1.3 % (0.7-5.8); EOSINOPHILS # 0.08 x10^3/uL (0.04-0.36); HEMATOCRIT 37.4 % (34.1-44.9); HEMOGLOBIN 12.4 g/dL (11.2-15.7); MCHC 33.2 g/dl (32.2-35.5); MEAN CELL VOLUME 86.2 fl (79.4-94.8); MEAN PLT VOLUME 10.7 fl (9.4-12.3); MONOCYTE % 10.1 % (4.7-12.5); PLATELET COUNT 201 x10^3/uL (182-369); RDW 12.3 % (12.4-16.4)
[2024-10-14 09:00] LABS: POTASSIUM 3.5 mmol/L (3.5-5.1)
[2024-10-14 09:04] LABS: ALBUMIN 3.1 g/dl (3.4-5.0); BLOOD UREA NITROGEN 11.4 mg/dL (7-18); CALCIUM 9.5 mg/dL (8.5-10.1)
[2024-10-14 09:09] LABS: CREATININE 0.8 mg/dL (0.55-1.3)
[2024-10-14 09:10] LABS: BILIRUBIN,TOTAL 0.9 mg/dL (0.2-1); TOT PROT 5.5 g/dl (6.4-8.2)
[2024-10-14] MEDS: PANTOPRAZOLE 40 MG TABLET PO SCH (10:44)
[2024-10-14] MEDS: ANASTROZOLE 1 MG TABLET PO SCH (10:44)
[2024-10-14] MEDS: SPIRONOLACTONE 25 MG TABLET PO SCH (10:44)
[2024-10-14] MEDS: POLYETHYLENE GLYCOL (HEALTHYLAX) 3350 17 GM PACKET PO SCH (10:44)
[2024-10-14] MEDS: ALBUMIN HUMAN 25% 12.5 GM/50 ML VIAL IV SCH (18:04)
[2024-10-15 03:17] VITALS: RESP 18; TEMP 98.4
[2024-10-15] MEDS: ENOXAPARIN NA (PORCINE) 40 MG/0.4 ML DISP.SYRIN SQ SCH (10:35)
[2024-10-15 10:49] LABS: ABSOLUTE IMMATURE GRANULOCYTES 0.01 x10^3/uL (0.0-0.031); BASOPHILS # 0.04 x10^3/uL (0.01-0.08); EOSINOPHIL % 1.6 % (0.7-5.8); EOSINOPHILS # 0.12 x10^3/uL (0.04-0.36); HEMOGLOBIN 12.9 g/dL (11.2-15.7); MCHC 32.3 g/dl (32.2-35.5); MEAN CELL VOLUME 87.7 fl (79.4-94.8); MEAN PLT VOLUME 10.6 fl (9.4-12.3); MONOCYTE # 0.79 x10^3/uL (0.24-0.86); MONOCYTE % 10.8 % (4.7-12.5); PLATELET COUNT 189 x10^3/uL (182-369); RDW 12.2 % (12.4-16.4)
[2024-10-15 11:17] LABS: POTASSIUM 3.4 mmol/L (3.5-5.1)
[2024-10-15 11:23] LABS: BLOOD UREA NITROGEN 9.1 mg/dL (7-18); CALCIUM 9.2 mg/dL (8.5-10.1)
[2024-10-15 11:24] LABS: ALBUMIN 3.7 g/dl (3.4-5.0)
[2024-10-15 11:26] LABS: CREATININE 0.9 mg/dL (0.55-1.3)
[2024-10-15 11:28] LABS: BILIRUBIN,TOTAL 0.9 mg/dL (0.2-1)
[2024-10-15 11:29] LABS: TOT PROT 6.2 g/dl (6.4-8.2)
[2024-10-15 13:22] VITALS: BP 124/73; PULSE 65
== END 2024-10-15 14:30 | disposition home or self-care (01) | DRG 948 ==
LOC: JER 14:24 → JERBED 16:15 → J6S 22:30
PROVIDERS: ADMIT Internal Medicine; ATTEND Internal Medicine
PROC: 0W9G3ZZ Drainage of Peritoneal Cavity, Percutaneous Approach (ICD-10-PCS; principal; 2024-10-14)
DX: R18.0 Malignant ascites (principal); C77.2 Secondary and unspecified malignant neoplasm of intra-abdominal lymph nodes; F41.9 Anxiety disorder, unspecified; C50.919 Malignant neoplasm of unspecified site of unspecified female breast; D64.9 Anemia, unspecified; E87.6 Hypokalemia
CPT/HCPCS: 36415; 74177-TC; 76942-TC; 80053; 82803; 83605; 83735; 83930; 84100; 84484; 85025; 85610; 85730; 86850; 86900; 86901; 93005; 93010; 99285-25; P9047; Q9967

== ENCOUNTER → 2024-11-20 | Day surgery (SDC) | payer OTHER ==
[2024-11-20 09:38] LABS: INR 1.13 (0.83-1.09); PROTHROMBIN TIME (PATIENT) 12.4 SEC (9.7-13.0)
== END | disposition home or self-care (01) ==
LOC: JRADIR 09:06
PROVIDERS: ATTEND Internal Medicine Hematology & Oncology
PROC: 0W9G3ZZ Drainage of Peritoneal Cavity, Percutaneous Approach (ICD-10-PCS; principal; 2024-11-20)
DX: R18.8 Other ascites (principal)
CPT/HCPCS: 36415; 49083; 76942-TC; 85610

== ENCOUNTER → 2024-12-23 | Day surgery (SDC) | payer OTHER ==
[2024-12-23 10:33] LABS: ABSOLUTE IMMATURE GRANULOCYTES 0.01 x10^3/uL (0.0-0.031); BASOPHILS # 0.06 x10^3/uL (0.01-0.08); EOSINOPHIL % 1.1 % (0.7-5.8); EOSINOPHILS # 0.09 x10^3/uL (0.04-0.36); MCHC 33.3 g/dl (32.2-35.5); MEAN CELL VOLUME 84.8 fl (79.4-94.8); MEAN PLT VOLUME 10.4 fl (9.4-12.3); MONOCYTE # 0.70 x10^3/uL (0.24-0.86); MONOCYTE % 8.7 % (4.7-12.5); RDW 13.2 % (12.4-16.4)
[2024-12-23 10:41] LABS: INR 1.17 (0.83-1.09); PROTHROMBIN TIME (PATIENT) 12.7 SEC (9.7-13.0)
== END | disposition home or self-care (01) ==
LOC: JRADIR 09:58
PROVIDERS: ATTEND Internal Medicine Hematology & Oncology
PROC: 0W9G3ZZ Drainage of Peritoneal Cavity, Percutaneous Approach (ICD-10-PCS; principal; 2024-12-23)
DX: R18.8 Other ascites (principal)
CPT/HCPCS: 36415; 49083; 76942-TC; 85025; 85610

== ENCOUNTER 2025-01-15 11:44 | Inpatient (IN) | payer OTHER ==
[2025-01-15] MEDS ORDERED: FAMOTIDINE 20 MG/50 ML IVPB 20 MG/50 ML MG IVPB ONE (13:41)
[2025-01-15] MEDS ORDERED: MAG HYDROX/AL HYDROX/SIMETH 30 ML UNIT-DOSE CUP ONE (13:41)
[2025-01-15] MEDS ORDERED: ONDANSETRON 4 MG/2 ML VIAL ONE (13:41)
[2025-01-15 14:03] LABS: ABSOLUTE IMMATURE GRANULOCYTES 0.02 x10^3/uL (0.0-0.031); BASOPHILS # 0.06 x10^3/uL (0.01-0.08); EOSINOPHIL % 0.2 % (0.7-5.8); EOSINOPHILS # 0.02 x10^3/uL (0.04-0.36); MCHC 31.8 g/dl (32.2-35.5); MEAN CELL VOLUME 89.2 fl (79.4-94.8); MONOCYTE # 0.65 x10^3/uL (0.24-0.86); MONOCYTE % 6.6 % (4.7-12.5); RDW 13.0 % (12.4-16.4)
[2025-01-15] MEDS: SODIUM CHLORIDE 0.9% 500 ML INFUS.BAG IV ONE (14:17)
[2025-01-15] MEDS: ONDANSETRON 4 MG/2 ML VIAL IVPUSH ONE (14:17)
[2025-01-15] MEDS: FAMOTIDINE 20 MG/50 ML IVPB 20 MG/50 ML MG IVPB ONE (14:17)
[2025-01-15] MEDS: MAG HYDROX/AL HYDROX/SIMETH 30 ML UNIT-DOSE CUP PO ONE (14:18)
[2025-01-15 14:28] LABS: GLUCOSE,RANDOM 111.0 mg/dL (74-106)
[2025-01-15 14:29] LABS: TOT PROT 6.8 g/dl (6.4-8.2)
[2025-01-15 14:30] LABS: CO2 19.0 mmol/L (21-32)
[2025-01-15 14:31] LABS: ALK PHOS 116.0 U/L (40-150)
[2025-01-15 14:34] LABS: CREATININE 0.95 mg/dL (0.55-1.3); SGOT/AST 40.0 U/L (5-34); SGPT/ALT 26.0 U/L (0-55)
[2025-01-15] MEDS ORDERED: ACETAMINOPHEN 1000 MG/100 ML BAG IVPB PRN (18:08)
[2025-01-15] MEDS ORDERED: ACETAMINOPHEN INJECTION 100 ML ONE (18:14)
[2025-01-15] MEDS: LACTATED RINGERS SOLUTION 1,000 ML IV SCH (18:30)
[2025-01-15] MEDS: ACETAMINOPHEN 1000 MG/100 ML BAG IVPB ONE (18:30)
[2025-01-15 19:06] LABS: INR 1.19 (0.83-1.09); PROTHROMBIN TIME (PATIENT) 13.1 SEC (9.7-13.0)
[2025-01-15 19:08] LABS: ACTIVATED PTT 35.6 SECONDS (25.2-36.5)
[2025-01-16 00:05] LABS: BODY FLUID MESOTHELIAL 4 %
[2025-01-16 00:06] LABS: BODY FLUID MACROPHAGES 60 %; BODY FLUID MONOCYTE 10 %
[2025-01-16 08:05] LABS: ABSOLUTE IMMATURE GRANULOCYTES 0.02 x10^3/uL (0.0-0.031); BASOPHILS # 0.09 x10^3/uL (0.01-0.08); EOSINOPHIL % 1.3 % (0.7-5.8); EOSINOPHILS # 0.11 x10^3/uL (0.04-0.36); MCHC 31.3 g/dl (32.2-35.5); MEAN CELL VOLUME 90.2 fl (79.4-94.8); MEAN PLT VOLUME 10.7 fl (9.4-12.3); MONOCYTE # 0.88 x10^3/uL (0.24-0.86); MONOCYTE % 10.0 % (4.7-12.5); RDW 13.1 % (12.4-16.4)
[2025-01-16 08:57] LABS: GLUCOSE,RANDOM 74.0 mg/dL (74-106); TOT PROT 5.1 g/dl (6.4-8.2)
[2025-01-16 08:58] LABS: CO2 23.0 mmol/L (21-32)
[2025-01-16 09:01] LABS: ALK PHOS 87.0 U/L (40-150)
[2025-01-16 09:03] LABS: CREATININE 0.96 mg/dL (0.55-1.3); SGOT/AST 23.0 U/L (5-34); SGPT/ALT 18.0 U/L (0-55)
[2025-01-16] MEDS: PANTOPRAZOLE 20 MG TABLET PO SCH (09:24)
[2025-01-16] MEDS: ENOXAPARIN NA (PORCINE) 40 MG/0.4 ML DISP.SYRIN SQ SCH (09:25)
[2025-01-16] MEDS: SPIRONOLACTONE 25 MG TABLET PO SCH (09:25)
[2025-01-16] MEDS: ANASTROZOLE 1 MG TABLET PO SCH (09:25)
[2025-01-16] MEDS: ONDANSETRON 4 MG/2 ML VIAL IVPUSH PRN (20:09)
[2025-01-16] MEDS: ALBUTEROL SO4 0.083% IH SOL 2.5 MG/3 ML VIAL.NEB. NEB ONE (20:26)
[2025-01-17] MEDS: FAMOTIDINE 20 MG/50 ML IVPB 20 MG/50 ML MG IVPB ONE (04:20)
[2025-01-17 08:10] LABS: ABSOLUTE IMMATURE GRANULOCYTES 0.02 x10^3/uL (0.0-0.031); BASOPHILS # 0.04 x10^3/uL (0.01-0.08); EOSINOPHIL % 0.4 % (0.7-5.8); EOSINOPHILS # 0.04 x10^3/uL (0.04-0.36); MCHC 32.5 g/dl (32.2-35.5); MEAN CELL VOLUME 86.7 fl (79.4-94.8); MEAN PLT VOLUME 10.4 fl (9.4-12.3); MONOCYTE # 0.73 x10^3/uL (0.24-0.86); MONOCYTE % 8.0 % (4.7-12.5); RDW 12.9 % (12.4-16.4)
[2025-01-17 08:28] LABS: TOT PROT 4.8 g/dl (6.4-8.2)
[2025-01-17 08:29] LABS: CO2 25.0 mmol/L (21-32)
[2025-01-17 08:31] LABS: ALK PHOS 79.0 U/L (40-150)
[2025-01-17 08:34] LABS: CREATININE 0.96 mg/dL (0.55-1.3); SGOT/AST 19.0 U/L (5-34); SGPT/ALT 14.0 U/L (0-55)
[2025-01-17 08:47] LABS: GLUCOSE,RANDOM 85.0 mg/dL (74-106)
[2025-01-17] MEDS: SPIRONOLACTONE 25 MG TABLET PO SCH (10:18)
[2025-01-17] MEDS: FUROSEMIDE 40 MG TABLET (FP) PO SCH (10:19)
[2025-01-17] MEDS: ALBUTEROL SO4 HFA INHALER IH PRN (18:12)
[2025-01-18 08:27] LABS: ABSOLUTE IMMATURE GRANULOCYTES 0.02 x10^3/uL (0.0-0.031); BASOPHILS # 0.04 x10^3/uL (0.01-0.08); EOSINOPHIL % 0.6 % (0.7-5.8); EOSINOPHILS # 0.06 x10^3/uL (0.04-0.36); MCHC 33.2 g/dl (32.2-35.5); MEAN CELL VOLUME 86.2 fl (79.4-94.8); MEAN PLT VOLUME 10.7 fl (9.4-12.3); MONOCYTE # 0.84 x10^3/uL (0.24-0.86); MONOCYTE % 8.9 % (4.7-12.5); RDW 12.9 % (12.4-16.4)
[2025-01-18 08:56] LABS: GLUCOSE,RANDOM 98.0 mg/dL (74-106)
[2025-01-18 08:57] LABS: TOT PROT 5.2 g/dl (6.4-8.2)
[2025-01-18 08:58] LABS: CO2 27.0 mmol/L (21-32)
[2025-01-18 08:59] LABS: ALK PHOS 84.0 U/L (40-150)
[2025-01-18 09:02] LABS: CREATININE 1.02 mg/dL (0.55-1.3); SGOT/AST 20.0 U/L (5-34); SGPT/ALT 16.0 U/L (0-55)
[2025-01-18] MEDS: ALBUMIN HUMAN 25% 100 ML VIAL IV PRN (13:41)
[2025-01-18 14:47] LABS: BODY FLUID MONOCYTE 63 %
[2025-01-18 14:48] LABS: BODY FLUID MESOTHELIAL 16 %
[2025-01-18] MEDS: KCL 10 MEQ IVPB 10 MEQ/100 ML INFUS.BAG IVPB SCH (17:08)
[2025-01-18] MEDS: POTASSIUM CHLORIDE ORAL LIQUID 20 MEQ/15 ML PO ONE (20:01)
[2025-01-18] MEDS: PORTA CATH FLUSH 10 ML IVPUSH PRN (23:00)
[2025-01-19 07:37] LABS: ABSOLUTE IMMATURE GRANULOCYTES 0.01 x10^3/uL (0.0-0.031); BASOPHILS # 0.03 x10^3/uL (0.01-0.08); EOSINOPHIL % 1.2 % (0.7-5.8); EOSINOPHILS # 0.08 x10^3/uL (0.04-0.36); MCHC 32.8 g/dl (32.2-35.5); MEAN CELL VOLUME 86.5 fl (79.4-94.8); MEAN PLT VOLUME 10.3 fl (9.4-12.3); MONOCYTE # 0.69 x10^3/uL (0.24-0.86); MONOCYTE % 10.4 % (4.7-12.5); RDW 12.7 % (12.4-16.4)
[2025-01-19 07:58] LABS: TOT PROT 4.8 g/dl (6.4-8.2)
[2025-01-19 07:59] LABS: CO2 28.0 mmol/L (21-32); GLUCOSE,RANDOM 102.0 mg/dL (74-106)
[2025-01-19 08:01] LABS: ALK PHOS 80.0 U/L (40-150)
[2025-01-19 08:04] LABS: CREATININE 1.0 mg/dL (0.55-1.3); SGOT/AST 19.0 U/L (5-34); SGPT/ALT 15.0 U/L (0-55)
[2025-01-19 09:58] VITALS: RESP 18
[2025-01-19 16:07] LABS: BODY FLUID ALBUMIN 1.7 g/dL (Not Estab.)
[2025-01-19 16:07] LABS: BODY FLUID ALBUMIN 1.7 g/dL (Not Estab.)
[2025-01-19] MEDS: KCL 10 MEQ IVPB 10 MEQ/100 ML INFUS.BAG IVPB SCH (18:14)
[2025-01-19] MEDS: POTASSIUM CHLORIDE ORAL LIQUID 20 MEQ/15 ML PO ONE (18:14)
[2025-01-20 08:47] LABS: ABSOLUTE IMMATURE GRANULOCYTES 0.01 x10^3/uL (0.0-0.031); BASOPHILS # 0.03 x10^3/uL (0.01-0.08); EOSINOPHIL % 1.3 % (0.7-5.8); EOSINOPHILS # 0.11 x10^3/uL (0.04-0.36); MCHC 32.4 g/dl (32.2-35.5); MEAN CELL VOLUME 87.9 fl (79.4-94.8); MEAN PLT VOLUME 10.6 fl (9.4-12.3); MONOCYTE # 0.70 x10^3/uL (0.24-0.86); MONOCYTE % 8.5 % (4.7-12.5); RDW 12.9 % (12.4-16.4)
[2025-01-20 09:40] LABS: TOT PROT 4.5 g/dl (6.4-8.2)
[2025-01-20 09:41] LABS: CO2 25.0 mmol/L (21-32); GLUCOSE,RANDOM 108.0 mg/dL (74-106)
[2025-01-20 09:43] LABS: ALK PHOS 84.0 U/L (40-150)
[2025-01-20 09:45] LABS: SGOT/AST 20.0 U/L (5-34); SGPT/ALT 16.0 U/L (0-55)
[2025-01-20 09:46] LABS: CREATININE 0.77 mg/dL (0.55-1.3)
[2025-01-21 07:38] LABS: ABSOLUTE IMMATURE GRANULOCYTES 0.01 x10^3/uL (0.0-0.031); BASOPHILS # 0.03 x10^3/uL (0.01-0.08); EOSINOPHIL % 2.1 % (0.7-5.8); EOSINOPHILS # 0.15 x10^3/uL (0.04-0.36); MCHC 32.1 g/dl (32.2-35.5); MEAN CELL VOLUME 88.2 fl (79.4-94.8); MEAN PLT VOLUME 10.9 fl (9.4-12.3); MONOCYTE # 0.67 x10^3/uL (0.24-0.86); MONOCYTE % 9.3 % (4.7-12.5); RDW 12.8 % (12.4-16.4)
[2025-01-21 07:39] LABS: GLUCOSE,RANDOM 106.0 mg/dL (74-106); TOT PROT 4.4 g/dl (6.4-8.2)
[2025-01-21 07:40] LABS: CO2 27.0 mmol/L (21-32)
[2025-01-21 07:42] LABS: ALK PHOS 98.0 U/L (40-150)
[2025-01-21 07:45] LABS: CREATININE 0.82 mg/dL (0.55-1.3); SGOT/AST 32.0 U/L (5-34); SGPT/ALT 28.0 U/L (0-55)
[2025-01-21 14:27] VITALS: BMI 20.9
[2025-01-22 02:21] VITALS: BP 119/61; PULSE 67; TEMP 98.1
== END 2025-01-22 02:30 | disposition short-term general hospital (02) | DRG 445 ==
LOC: JER 11:44 → OBSVTOIN 17:19 → JERBED 17:19 → J7W 21:07
PROVIDERS: ADMIT Internal Medicine; ATTEND Internal Medicine
PROC: 0W9G3ZZ Drainage of Peritoneal Cavity, Percutaneous Approach (ICD-10-PCS; principal; 2025-01-15)
PROC: 0W9G3ZX Drainage of Peritoneal Cavity, Percutaneous Approach, Diagnostic (ICD-10-PCS; 2025-01-18)
DX: K83.8 Other specified diseases of biliary tract (principal); C78.6 Secondary malignant neoplasm of retroperitoneum and peritoneum; R18.8 Other ascites; K76.6 Portal hypertension; C50.919 Malignant neoplasm of unspecified site of unspecified female breast; J45.909 Unspecified asthma, uncomplicated; D64.9 Anemia, unspecified; K74.60 Unspecified cirrhosis of liver
CPT/HCPCS: 36415; 74177-TC; 74183-TC; 76942-TC; 80053; 82042; 82150; 82465; 82945; 82962; 83036; 83615; 83735; 83986; 84100; 84157; 84478; 84484; 85025; 85610; 85730; 87070; 87075; 87102; 87116; 87205; 87206; 87210; 87637-QW; 88108; 88305-TC; 88341-TC; 88342-TC; 93005; 93010; 94640; 99285-25; Q9967

== ENCOUNTER 2025-02-24 08:47 | Day surgery (SDC) | payer OTHER ==
[2025-02-22 16:13] VITALS: BMI 20.7
[2025-02-24] MEDS: KCL 10 MEQ IVPB 10 MEQ/100 ML INFUS.BAG IVPB SCH (09:30)
[2025-02-24 09:37] VITALS: RESP 20
[2025-02-24] MEDS: ALBUMIN HUMAN 25% 100 ML VIAL IV ONE (11:44)
[2025-02-24] MEDS ORDERED: PORTA CATH FLUSH 10 ML IVPUSH PRN (17:59)
[2025-02-24] MEDS: PORTA CATH FLUSH 10 ML IVPUSH PRN (18:00)
[2025-02-24 18:25] VITALS: BP 129/64; PULSE 69; TEMP 97.9
== END 2025-02-24 18:19 | disposition home or self-care (01) ==
LOC: JRADIR 08:47
PROVIDERS: ATTEND Internal Medicine Hematology & Oncology
PROC: 0W9G3ZZ Drainage of Peritoneal Cavity, Percutaneous Approach (ICD-10-PCS; principal; 2025-02-24)
DX: R18.8 Other ascites (principal)
CPT/HCPCS: 49083; 76942-TC

== ENCOUNTER 2025-02-24 18:04 | Inpatient (IN) | payer OTHER ==
[2025-02-24 19:46] LABS: ABSOLUTE IMMATURE GRANULOCYTES 0.04 x10^3/uL (0.0-0.031); BASOPHILS # 0.05 x10^3/uL (0.01-0.08); EOSINOPHIL % 0.4 % (0.7-5.8); EOSINOPHILS # 0.05 x10^3/uL (0.04-0.36); MCHC 32.8 g/dl (32.2-35.5); MEAN CELL VOLUME 87.9 fl (79.4-94.8); MEAN PLT VOLUME 10.1 fl (9.4-12.3); MONOCYTE # 1.03 x10^3/uL (0.24-0.86); MONOCYTE % 9.2 % (4.7-12.5); RDW 12.7 % (12.4-16.4)
[2025-02-24 20:40] LABS: GLUCOSE,RANDOM 157.0 mg/dL (74-106)
[2025-02-24 20:41] LABS: TOT PROT 5.3 g/dl (6.4-8.2)
[2025-02-24 20:42] LABS: CO2 24.0 mmol/L (21-32)
[2025-02-24 20:43] LABS: ALK PHOS 91.0 U/L (40-150)
[2025-02-24 20:46] LABS: CREATININE 0.85 mg/dL (0.55-1.3); SGOT/AST 27.0 U/L (5-34); SGPT/ALT 22.0 U/L (0-55)
[2025-02-24] MEDS ORDERED: ONDANSETRON 4 MG/2 ML VIAL IM PRN (21:57)
[2025-02-24] MEDS ORDERED: POTASSIUM CHLORIDE TABS 20 MEQ TABLET.ER (FP) PO ONE (22:01)
[2025-02-24] MEDS: POTASSIUM CHLORIDE ORAL LIQUID 20 MEQ/15 ML PO ONE (22:02)
[2025-02-24] MEDS ORDERED: POTASSIUM CHLORIDE ORAL LIQUID 20 MEQ/15 ML ONE (22:03)
[2025-02-25 09:12] LABS: ABSOLUTE IMMATURE GRANULOCYTES 0.03 x10^3/uL (0.0-0.031); BASOPHILS # 0.06 x10^3/uL (0.01-0.08); EOSINOPHIL % 1.7 % (0.7-5.8); EOSINOPHILS # 0.14 x10^3/uL (0.04-0.36); MCHC 33.4 g/dl (32.2-35.5); MEAN CELL VOLUME 85.5 fl (79.4-94.8); MEAN PLT VOLUME 10.6 fl (9.4-12.3); MONOCYTE # 0.94 x10^3/uL (0.24-0.86); MONOCYTE % 11.3 % (4.7-12.5); RDW 12.7 % (12.4-16.4)
[2025-02-25] MEDS: ENOXAPARIN NA (PORCINE) 40 MG/0.4 ML DISP.SYRIN SQ SCH (09:32)
[2025-02-25] MEDS: ALBUTEROL SO4 HFA INHALER IH PRN (09:33)
[2025-02-25] MEDS: PANTOPRAZOLE 20 MG TABLET PO SCH (09:33)
[2025-02-25] MEDS: SPIRONOLACTONE 25 MG TABLET PO SCH (09:33)
[2025-02-25 09:47] LABS: GLUCOSE,RANDOM 163.0 mg/dL (74-106)
[2025-02-25 09:48] LABS: TOT PROT 5.0 g/dl (6.4-8.2)
[2025-02-25 09:49] LABS: CO2 24.0 mmol/L (21-32)
[2025-02-25 09:51] LABS: ALK PHOS 87.0 U/L (40-150)
[2025-02-25 09:53] LABS: SGOT/AST 26.0 U/L (5-34); SGPT/ALT 23.0 U/L (0-55)
[2025-02-25 09:54] LABS: CREATININE 0.85 mg/dL (0.55-1.3)
[2025-02-25] MEDS: ONDANSETRON 4 MG/2 ML VIAL IM PRN (16:48)
[2025-02-25] MEDS ORDERED: PORTA CATH FLUSH 10 ML IVPUSH PRN (17:35)
[2025-02-26] MEDS: PORTA CATH FLUSH 10 ML IVPUSH PRN (06:44)
[2025-02-26 08:43] LABS: ABSOLUTE IMMATURE GRANULOCYTES 0.03 x10^3/uL (0.0-0.031); BASOPHILS # 0.06 x10^3/uL (0.01-0.08); EOSINOPHIL % 1.4 % (0.7-5.8); EOSINOPHILS # 0.14 x10^3/uL (0.04-0.36); MCHC 34.3 g/dl (32.2-35.5); MEAN CELL VOLUME 85.1 fl (79.4-94.8); MEAN PLT VOLUME 11.0 fl (9.4-12.3); MONOCYTE # 0.91 x10^3/uL (0.24-0.86); MONOCYTE % 9.3 % (4.7-12.5); RDW 12.5 % (12.4-16.4)
[2025-02-26 09:31] LABS: GLUCOSE,RANDOM 138.0 mg/dL (74-106); TOT PROT 5.3 g/dl (6.4-8.2)
[2025-02-26 09:32] LABS: CO2 24.0 mmol/L (21-32)
[2025-02-26 09:34] LABS: ALK PHOS 99.0 U/L (40-150)
[2025-02-26 09:37] LABS: CREATININE 0.82 mg/dL (0.55-1.3); SGOT/AST 30.0 U/L (5-34); SGPT/ALT 25.0 U/L (0-55)
[2025-02-26 14:49] VITALS: BMI 16.2
[2025-02-26] MEDS: ALBUTEROL SO4 2.5/IPRATROPIUM 0.5 INH SOL 3 ML VIAL.NEB. NEB PRN (17:23)
[2025-02-27] MEDS: SENNOSIDES 8.6MG TABLET (FP) PO PRN (01:32)
[2025-02-27] MEDS: ONDANSETRON *ODT* 4 MG TABLET SL ONE (06:04)
[2025-02-27 06:59] LABS: ABSOLUTE IMMATURE GRANULOCYTES 0.02 x10^3/uL (0.0-0.031); BASOPHILS # 0.05 x10^3/uL (0.01-0.08); EOSINOPHIL % 1.3 % (0.7-5.8); EOSINOPHILS # 0.12 x10^3/uL (0.04-0.36); MCHC 34.2 g/dl (32.2-35.5); MEAN CELL VOLUME 84.5 fl (79.4-94.8); MEAN PLT VOLUME 10.1 fl (9.4-12.3); MONOCYTE # 0.92 x10^3/uL (0.24-0.86); MONOCYTE % 9.8 % (4.7-12.5); RDW 12.6 % (12.4-16.4)
[2025-02-27 07:24] LABS: GLUCOSE,RANDOM 114.0 mg/dL (74-106); TOT PROT 4.9 g/dl (6.4-8.2)
[2025-02-27 07:25] LABS: CO2 26.0 mmol/L (21-32)
[2025-02-27 07:26] LABS: ALK PHOS 92.0 U/L (40-150)
[2025-02-27 07:29] LABS: CREATININE 0.74 mg/dL (0.55-1.3); SGOT/AST 29.0 U/L (5-34); SGPT/ALT 25.0 U/L (0-55)
[2025-02-27] MEDS: DEXTROSE 5%-0.45% SALINE 1,000 ML IV SCH (13:43)
[2025-02-27] MEDS: ONDANSETRON 4 MG/2 ML VIAL IVPUSH PRN (16:30)
[2025-02-27] MEDS: FAMOTIDINE 20 MG/50 ML IVPB 20 MG/50 ML MG IVPB SCH (17:11)
[2025-02-28 09:45] LABS: ABSOLUTE IMMATURE GRANULOCYTES 0.04 x10^3/uL (0.0-0.031); BASOPHILS # 0.06 x10^3/uL (0.01-0.08); EOSINOPHIL % 0.5 % (0.7-5.8); EOSINOPHILS # 0.07 x10^3/uL (0.04-0.36); MCHC 33.3 g/dl (32.2-35.5); MEAN CELL VOLUME 85.4 fl (79.4-94.8); MEAN PLT VOLUME 10.2 fl (9.4-12.3); MONOCYTE # 1.47 x10^3/uL (0.24-0.86); MONOCYTE % 10.2 % (4.7-12.5); RDW 12.7 % (12.4-16.4)
[2025-02-28 10:11] LABS: GLUCOSE,RANDOM 148.0 mg/dL (74-106); TOT PROT 4.7 g/dl (6.4-8.2)
[2025-02-28 10:12] LABS: CO2 24.0 mmol/L (21-32)
[2025-02-28 10:14] LABS: ALK PHOS 81.0 U/L (40-150)
[2025-02-28 10:17] LABS: CREATININE 0.8 mg/dL (0.55-1.3); SGOT/AST 22.0 U/L (5-34); SGPT/ALT 21.0 U/L (0-55)
[2025-02-28] MEDS: PANTOPRAZOLE 40 MG TABLET PO SCH (11:21)
[2025-02-28 19:45] LABS: URINE APPEARANCE TURBID; URINE BILIRUBIN NEGATIVE (NEGATIVE); URINE COLOR YELLOW; URINE GLUCOSE (UA) NEGATIVE (NEGATIVE); URINE KETONE NEGATIVE (NEGATIVE); URINE PROTEIN 2+ (NEGATIVE)
[2025-02-28 19:46] LABS: URINE LEUK ESTERASE 3+ (NEGATIVE); URINE NITRITE POSITIVE (NEGATIVE); URINE UROBILINOGEN 1.0 mg/dL (0.2-1.0)
[2025-02-28] MEDS: ERTAPENEM SODIUM 1 GM in SODIUM CHLORIDE 50 ML IVPB ONE (20:59)
[2025-03-01 08:46] LABS: ABSOLUTE IMMATURE GRANULOCYTES 0.04 x10^3/uL (0.0-0.031); BASOPHILS # 0.05 x10^3/uL (0.01-0.08); EOSINOPHIL % 1.7 % (0.7-5.8); EOSINOPHILS # 0.16 x10^3/uL (0.04-0.36); MCHC 33.3 g/dl (32.2-35.5); MEAN CELL VOLUME 86.5 fl (79.4-94.8); MEAN PLT VOLUME 10.4 fl (9.4-12.3); MONOCYTE # 0.98 x10^3/uL (0.24-0.86); MONOCYTE % 10.2 % (4.7-12.5); RDW 12.8 % (12.4-16.4)
[2025-03-01 09:25] LABS: GLUCOSE,RANDOM 110.0 mg/dL (74-106); TOT PROT 4.4 g/dl (6.4-8.2)
[2025-03-01 09:26] LABS: CO2 24.0 mmol/L (21-32)
[2025-03-01 09:27] LABS: ALK PHOS 87.0 U/L (40-150)
[2025-03-01 09:30] LABS: SGOT/AST 22.0 U/L (5-34); SGPT/ALT 21.0 U/L (0-55)
[2025-03-01 09:31] LABS: CREATININE 0.78 mg/dL (0.55-1.3)
[2025-03-01] MEDS: ERTAPENEM SODIUM 1 GM in SODIUM CHLORIDE 50 ML IVPB SCH (18:24)
[2025-03-01] MEDS: POTASSIUM CHLORIDE ORAL LIQUID 20 MEQ/15 ML PO ONE (19:46)
[2025-03-01] MEDS: KCL 10 MEQ IVPB 10 MEQ/100 ML INFUS.BAG IVPB SCH (20:06)
[2025-03-01] MEDS: CALCIUM CARBONATE 650 MG TABLET PO PRN (21:44)
[2025-03-02 08:20] LABS: ABSOLUTE IMMATURE GRANULOCYTES 0.01 x10^3/uL (0.0-0.031); BASOPHILS # 0.06 x10^3/uL (0.01-0.08); EOSINOPHIL % 2.3 % (0.7-5.8); EOSINOPHILS # 0.17 x10^3/uL (0.04-0.36); MCHC 33.2 g/dl (32.2-35.5); MEAN CELL VOLUME 86.4 fl (79.4-94.8); MEAN PLT VOLUME 10.0 fl (9.4-12.3); MONOCYTE # 0.75 x10^3/uL (0.24-0.86); MONOCYTE % 10.2 % (4.7-12.5); RDW 12.8 % (12.4-16.4)
[2025-03-02 09:06] LABS: GLUCOSE,RANDOM 139.0 mg/dL (74-106)
[2025-03-02 09:07] LABS: CO2 24.0 mmol/L (21-32)
[2025-03-02 09:09] LABS: ALK PHOS 88.0 U/L (40-150)
[2025-03-02 09:11] LABS: SGOT/AST 20.0 U/L (5-34); SGPT/ALT 18.0 U/L (0-55)
[2025-03-02 09:12] LABS: CREATININE 0.75 mg/dL (0.55-1.3)
[2025-03-02 09:17] LABS: TOT PROT 4.5 g/dl (6.4-8.2)
[2025-03-03 08:44] LABS: ABSOLUTE IMMATURE GRANULOCYTES 0.02 x10^3/uL (0.0-0.031); BASOPHILS # 0.06 x10^3/uL (0.01-0.08); EOSINOPHIL % 2.1 % (0.7-5.8); EOSINOPHILS # 0.17 x10^3/uL (0.04-0.36); MCHC 33.4 g/dl (32.2-35.5); MEAN CELL VOLUME 86.1 fl (79.4-94.8); MEAN PLT VOLUME 10.9 fl (9.4-12.3); MONOCYTE # 0.76 x10^3/uL (0.24-0.86); MONOCYTE % 9.4 % (4.7-12.5); RDW 12.8 % (12.4-16.4)
[2025-03-03 09:16] LABS: GLUCOSE,RANDOM 118.0 mg/dL (74-106); TOT PROT 4.4 g/dl (6.4-8.2)
[2025-03-03 09:17] LABS: CO2 24.0 mmol/L (21-32)
[2025-03-03 09:19] LABS: ALK PHOS 84.0 U/L (40-150)
[2025-03-03 09:22] LABS: CREATININE 0.69 mg/dL (0.55-1.3); SGOT/AST 16.0 U/L (5-34); SGPT/ALT 16.0 U/L (0-55)
[2025-03-03] MEDS: CEFTRIAXONE 1 GM in DEXTROSE 5%-WATER - 50 ML IVPB ONE (18:20)
[2025-03-04] MEDS: CEFTRIAXONE 1 GM in DEXTROSE 5%-WATER - 50 ML IVPB SCH (10:53)
[2025-03-04] MEDS: ONDANSETRON *ODT* 4 MG TABLET SL PRN (17:17)
[2025-03-05] MEDS: METOCLOPRAMIDE HCL INJECTION 10 MG/2 ML VIAL IVPUSH ONE (00:41)
[2025-03-05 07:11] VITALS: RESP 18
[2025-03-05 08:16] LABS: MCHC 33.8 g/dl (32.2-35.5); MEAN CELL VOLUME 85.7 fl (79.4-94.8); MEAN PLT VOLUME 10.2 fl (9.4-12.3); RDW 12.8 % (12.4-16.4)
[2025-03-05 08:29] LABS: GLUCOSE,RANDOM 115.0 mg/dL (74-106)
[2025-03-05 08:30] LABS: TOT PROT 4.6 g/dl (6.4-8.2)
[2025-03-05 08:31] LABS: CO2 24.0 mmol/L (21-32)
[2025-03-05 08:32] LABS: ALK PHOS 92.0 U/L (40-150)
[2025-03-05 08:35] LABS: CREATININE 0.8 mg/dL (0.55-1.3); SGOT/AST 16.0 U/L (5-34); SGPT/ALT 12.0 U/L (0-55)
[2025-03-05 13:37] VITALS: BP 109/70; PULSE 70; TEMP 98.2
== END 2025-03-05 18:10 | disposition home or self-care (01) | DRG 597 ==
LOC: JER 18:04 → JERBED 18:49 → J7W 23:40 → OBSVTOIN 02-27 12:39
PROVIDERS: ADMIT Internal Medicine; ATTEND Nurse Practitioner
DX: C50.919 Malignant neoplasm of unspecified site of unspecified female breast (principal); E43 Unspecified severe protein-calorie malnutrition; R18.0 Malignant ascites; C78.6 Secondary malignant neoplasm of retroperitoneum and peritoneum; E87.1 Hypo-osmolality and hyponatremia; Z68.1 Body mass index [BMI] 19.9 or less, adult; N39.0 Urinary tract infection, site not specified; M81.0 Age-related osteoporosis without current pathological fracture; E87.6 Hypokalemia; K21.9 Gastro-esophageal reflux disease without esophagitis; D64.9 Anemia, unspecified; K74.60 Unspecified cirrhosis of liver; D72.829 Elevated white blood cell count, unspecified
CPT/HCPCS: 36415; 71045-TC-FY; 74176-TC; 74183-TC; 76705-TC; 76856-TC; 80053; 81003; 83735; 84100; 85025; 85027; 87040; 87086; 93005; 93010; 94640; 97116-GP; 97162-GP; 99285-25; G0378; J2997; Q0162